=== PATIENT | female | born 1945 | race Caucasian/White ===

== ENCOUNTER → 2017-04-15 | Outpatient (CLI) | payer OTHER ==
[~2017-04-15] MED LIST: ASPEC81 PO; CALC600T9 PO; CHOL20007 PO; CRAN1CAP15 PO; DLR500 PO; FSM70 PO; OXGN; SPRIN INH; SYMIN INH; XPNINS125 INH; ZINC1TAB PO; [UNRECOGNIZED DRUG - CODE] PO
== END | disposition home or self-care (01) ==
LOC: C.LAB1850 14:48
PROVIDERS: ATTEND Internal Medicine Pulmonary Disease
DX: J44.1 Chronic obstructive pulmonary disease with (acute) exacerbation (principal)

== ENCOUNTER → 2017-05-28 | Outpatient (CLI) | payer OTHER ==
[~2017-05-28] MED LIST changes: +OPTIRAY 320 IV PRN
--- NOTE | 2017-05-28 13:23 | DIAGNOSTIC IMAGING REPORT ---
CT LUNG SCREENING, LOW DOSE WITH COMPUTER-AIDED DETECTION (CAD) CLINICAL HISTORY: Tobacco abuse. COMPARISON STUDY: Chest CT October 25, 2014. CT DOSE: 97.28 mGy.cm TECHNIQUE: Low-dose helical CT was acquired without intravenous contrast from lung apices to bases and reconstructed at 2.5 mm every 2 mm. CAD was utilized for this study. A dose lowering technique was utilized adhering to the principles of ALARA. FINDINGS: No enlarged axillary, mediastinal or hilar lymph nodes are present. The size of the heart is normal. There is no pericardial effusion. Mild dilatation of the ascending aorta, measuring 3.9 cm is noted. There is mild dilatation of the distal descending thoracic aorta which measures 3.5 cm. This is only minimally increased since exam of October 25, 2014. There is no consolidation to suggest pneumonia. Mucus at the level the jefferson is noted. There is multifocal mucus within lower lobe bronchi. No pneumothorax or pleural effusion is present. Severe emphysema is noted. A 3 mm nodule within the right lower lobe is noted on image 160 of 346. This is likely benign. Bony thorax and upper abdomen are unremarkable. IMPRESSION: 1. 3 mm right lower lobe pulmonary nodule which is likely benign. No suspicious pulmonary nodules. 2. Severe emphysema. 3. Small amount of mucus at the jefferson with multifocal secretions/mucous within lower lobe bronchi. Lung RADS: 2. Benign findings. Continued annual low-dose annual screening in 12 months. CAD FINDINGS: Overall Lung RADS Category: 2 Lung RADS Management Recommendation: Lung-RADS 2: Continue annual screening in 12 months. Lung RADS Follow Up Date: 2018-05-28 Lung RADS Nodule ID: 1 Nodule 1 Category: 2 Nodule 1 Status: Baseline Nodule 1 Description: Solid Nodule 1 Lesion ID: 1 Nodule 1 Slice Number: [id number] Nodule 1 Volume (mm3): 17 Nodule 1 Major [place] mm: 3.4 Nodule 1 Minor [place] mm: 2.1 Electronically signed by: Sandro Cook M.D. 05/28/2017 1:22 PM Dictated Date/Time: 05/28/2017 1:07 PM
== END | disposition home or self-care (01) ==
LOC: C.CTS 12:50
PROVIDERS: ATTEND Family Medicine
DX: Z87.891 Personal history of nicotine dependence (principal); R91.1 Solitary pulmonary nodule; J43.9 Emphysema, unspecified

== ENCOUNTER → 2017-12-15 | Outpatient (CLI) | payer OTHER ==
[~2017-12-15] MED LIST changes: -OPTIRAY 320 IV PRN
--- NOTE | 2017-12-15 16:14 | DIAGNOSTIC IMAGING REPORT ---
CHEST 2 VIEWS ROUTINE HISTORY: 72 years-old Female J44.9 COPD, [id number] follow-up study in a patient with COPD COMPARISON: Chest radiograph 01/30/2016, low-dose lung screening study 05/28/2017 TECHNIQUE: PA and lateral views of the chest FINDINGS: Cardiomediastinal and hilar silhouettes are within normal limits. Atherosclerosis of the aorta. Emphysema with hyperinflation and chronic interstitial coarsening redemonstrated. Mild biapical pleural-parenchymal scarring without pneumothorax, large pleural effusion, focal airspace consolidation or overt pulmonary edema. Bilateral nipple shadows are noted. Mild sigmoidal scoliosis of the thoracolumbar spine. IMPRESSION: Emphysema without acute process. The above report was generated using voice recognition software. It may contain grammatical, syntax or spelling errors. Electronically signed by: Miguel Palmer M.D. 12/15/2017 4:12 PM Dictated Date/Time: 12/15/2017 4:10 PM
== END | disposition home or self-care (01) ==
LOC: C.RAD1850 15:52
PROVIDERS: ATTEND Internal Medicine Pulmonary Disease
DX: J44.9 Chronic obstructive pulmonary disease, unspecified (principal); J43.9 Emphysema, unspecified

== ENCOUNTER 2019-09-09 11:51 | Inpatient (IN) ==
[2019-09-09] MEDS ORDERED: ALBUT/IPRATROP 3MG/0.5MG NEB 3 ML VIAL NEB STA (13:20)
[2019-09-09] MEDS ORDERED: SODIUM CHLORIDE 0.9% 1000ML 1,000 ML IV ONE (13:20)
[2019-09-09 13:31] LABS: Hematocrit (blood only) 38.9 % (37-47); Hemoglobin 11.2 g/dL (12.0-16.0); Mean Corpuscular Hemoglobin 29.4 pg (25-34); Mean Corpuscular Hgb Conc 28.8 g/dL (32-36); Mean Corpuscular Volume 102.1 fL (80-100); Mean Platelet Volume 11.3 fL (7.4-10.4); Platelet Count 188 K/uL (130-400); RDW Coefficient of Variation 13.6 % (11.5-14.5); RDW Standard Deviation 50.8 fL (36.4-46.3); Red Blood Count 3.81 M/uL (4.2-5.4); White Blood Count 11.42 K/uL (4.8-10.8)
[2019-09-09 13:46] LABS: Alanine Aminotransferase 28 U/L (12-78); Albumin Level 3.5 gm/dl (3.4-5.0); Alkaline Phosphatase 85 U/L (45-117); Aspartate Aminotransferase 16 U/L (15-37); BUN Creatinine Ratio 42.6 (10-20); Bilirubin,Total 0.6 mg/dl (0.2-1); Blood Urea Nitrogen 26 mg/dl (7-18); Calcium 8.9 mg/dl (8.5-10.1); Chloride 89 mmol/L (98-107); Est GFR (African American) 103.3; Est GFR (Non-African American) 89.2; Globulin 3.6 gm/dl (2.5-4.0); Glucose 199 mg/dl (70-99); Potassium 4.5 mmol/L (3.5-5.1); Sodium 138 mmol/L (136-145); Total Protein 7.1 gm/dl (6.4-8.2)
[2019-09-09 13:50] LABS: Basophils # (auto) 0.01 K/uL (0-0.2); Basophils % (auto) 0.1 %; Eosinophils # (auto) 0.01 K/uL (0-0.5); Eosinophils % (auto) 0.1 %; Immature Granulocytes # (auto) 0.02 K/uL (0.00-0.02); Immature Granulocytes % (auto) 0.2 %; Lymphocytes # (auto) 0.59 K/uL (1.2-3.4); Lymphocytes % (auto) 5.2 %; Monocytes # (auto) 0.63 K/uL (0.11-0.59); Monocytes % (auto) 5.5 %; Neutrophils # (auto) 10.16 K/uL (1.4-6.5); Neutrophils % (auto) 88.9 %
--- NOTE | 2019-09-09 13:51 | XRay Report ---
XR chest 1V portable CLINICAL HISTORY: weakness COMPARISON STUDY: Chest radiograph June 13, 2019. FINDINGS: Emphysema is noted. There is no pneumothorax or pleural effusion. Cardiac size is normal. M ediastinal contours are normal. There is no evidence for pulmonary edema. Possible minimal airspace o pacity is likely artifactual. IMPRESSION: 1. No acute findings. 2. Emphysema. 3. Possible minimal left basilar opacity. Favor artifact. Electronically signed by: Sandro Cook M.D. 09/09/2019 1:49 PM
[2019-09-09 13:56] LABS: Carbon Dioxide 54 mmol/L (21-32)
--- NOTE | 2019-09-09 14:45 | CT Scan Report ---
CT OF THE HEAD WITHOUT CONTRAST CLINICAL HISTORY: Weakness. COMPARISON STUDY: No previous studies for comparison. CT DOSE: 537.48 mGy.cm TECHNIQUE: Helical axial images of the head were obtained without IV contrast. Automated exposure con trol was utilized for the study. A dose lowering technique was utilized adhering to the principles o f ALARA. FINDINGS: No acute intracranial hemorrhage, midline shift or mass effect is present. The ventricular system is unremarkable. The basilar cisterns are patent. No extra-axial collections are present. Ther e are no findings to suggest acute dural sinus thrombosis or acute territorial infarct. No significan t calvarial abnormalities are present. Visualized portions of the sinuses and mastoid air cells are c lear. IMPRESSION: No acute intracranial findings. Electronically signed by: Sandro Cook M.D. 09/09/2019 2:44 PM
[2019-09-09 14:50] LABS: Base Excess ABG 16.5 mEq/L (-9-1.8); HCO3 ABG 46 mmol/L (19-24); Oxygen Saturation ABG 80.7 % (90-95); PCO2 ABG 101 mmHg (35-46); pH ABG 7.28 (7.35-7.45)
[2019-09-09 14:57] LABS: Allen Test Pos (Pos)
[2019-09-09 14:58] LABS: PO2 ABG 43 mm/Hg (80-95)
--- NOTE | 2019-09-09 15:06 | Emergency Department Note ---
Entered by Nissa Monson acting as a scribe for Mikel Yang DO History of Present Illness General Chief complaint: Shortness of Breath/Dyspnea Stated complaint: LOW OXYGEN - CANT BREATHE Time Seen by Provider: 09/09/19 12:51 Source: patient and family (daughter) History of Present Illness Onset (ago): hour(s) (this morning) Location: chest Pain Consistency: + other (episode) Maximum Pain Intensity: 0 Quality: + other (shortness of breath) Relieved By: not by other (increased O2) Associated symptoms: + other (disorientation, dizziness, chest pain, loss of balance) The patient is a 74 year old female that is presenting to the Emergency Room with complaints of an episode of shortness of breath that started this morning around 0830. The patient reports that she was feeling disoriented and unable to focus. Her daughter states that patient called her and asked her to come over as she was unable to sort out her medicine. Her daughter notes that the patient was feeling off balance and dizzy when she arrived. Her daughter reports that the patient was experiencing some chest pain. The patient states that her shortness of breath is her main complaint at this time. She notes that she has a history of COPD and wears 4L O2 at home at baseline. She states that she increased her O2 to 5L this morning without any significant relief in her symptoms. Her daughter reports that the patient lives with her but notes that she and her sister check on the patient often. Home Medications Home Medications Medication Instructions Recorded Confirmed Type Spiriva Respimat 2 puff INHALATION QAM 06/29/18 09/09/19 History Symbicort 2 puff INHALATION BID 06/29/18 09/09/19 History aspirin [Aspir-81] 81 mg PO QPM 06/29/18 09/09/19 History cranberry 8,400 mg PO QAM 06/29/18 09/09/19 History zinc 50 mg PO QAM 06/29/18 09/09/19 History alendronate 70 mg tablet 70 mg PO WK #12 tab 04/14/19 09/09/19 Rx Oxygen Home #1 ea 05/01/19 09/07/19 History hydrocortisone 2.5 % topical cream 1 appln TOPICAL BID PRN #1 gm 05/01/19 09/09/19 History levalbuterol HCl 0.63 mg/3 mL 0.63 mg INHALATION Q4H #15 ml 05/01/19 09/09/19 History solution for nebulization prednisone 5 mg tablet 5 mg PO QAM #30 tab 05/10/19 09/09/19 Rx citalopram 20 mg tablet 20 mg PO QAM #30 tab 05/19/19 09/09/19 Rx prednisone 10 mg tablet 10 mg PO .COMPLEX #30 tab 06/13/19 09/09/19 Rx metformin 500 mg tablet 500 mg PO BID #180 tab 06/20/19 09/09/19 Rx albuterol sulfate 90 mcg/actuation 2 puff INHALATION Q4H PRN #18 gm 08/03/19 09/09/19 Rx aerosol inhaler Allergies Allergy/AdvReac Type Severity Reaction Status Date / Time house dust mite Allergy Severe Verified 09/09/19 12:26 tree and shrub pollen Allergy Severe Verified 09/09/19 12:26 Sulfa (Sulfonamide Allergy Intermediate hives Verified 09/09/19 12:26 Antibiotics) Past Med/Surg History Medical History Anxiety Bunion of great toe of right foot Cardiac murmur 2014 [facility]-CARDIAC CATH NO STENTS Chronic obstructive pulmonary disease Current use of steroid medication F/U DR WALLACE On home oxygen therapy 3/L/MIN [place] Osteoarthritis SOB (shortness of breath) Urinary tract infection HX Surgical History History of cardiac cath 2014-NO STENTS NEEDED [facility] History of carpal tunnel release RIGHT History of colonoscopy History of hysterectomy OVARIES REMAIN History of tonsillectomy Family History Grandmother (Paternal) Myocardial infarction Social History Preferred Language: Uzbek Communication Ability: Effective Visual Impairment: Limited Hearing Ability: Normal Patient Financial Representative Required: No Beliefs That Will Affect Care: None marital status: Current Living Situation: Spouse and Family current occupational status: retired Feels Safe at Home: Yes Smoking Status: Current every day smoker Tobacco Type: cigarettes ; Second Hand Exposure: No ; Hx Alcohol Use: No Hx Substance Use: No Childhood Exposure to Second-Hand Smoke: Yes caffeine: No during the past year weight has: decreased > 10 lbs Dental Care, Regularly: No Physical Activity Frequency: Does not Exercise Seatbelt Use: always Sunscreen Use: No Review of Systems See HPI for pertinent positives & negatives. and A total of 10 systems reviewed and were otherwise negative Physical Exam Vital Signs Vital Signs - 24 hr 09/09/19 12:07 09/09/19 12:47 09/09/19 12:50 Temperature 36.5 C Temperature Source Oral Pulse Rate 69 Pulse Rate [Apical] 72 Pulse Rate from SpO2 Sensor Pulse Rhythm Regular Pulse Strength Normal Respiratory Rate 16 22 Respiratory Effort / Characteristics Non-Labored Non-Labored Non-Labored Respiratory Depth Normal Normal Respiratory Pattern Regular Blood Pressure 113/67 Blood Pressure [Right Arm] 127/68 Blood Pressure Mean 82 Blood Pressure Mean [Right Arm] 87 Blood Pressure Position Sitting Blood Pressure Position [Right Arm] Sitting Pulse Oximetry 99 100 Oxygen Delivery Method Nasal Cannula Nasal Cannula Nasal Cannula Oxygen Flow Rate 5 4 4 Fraction of Inspired Oxygen 6 SaO2/FiO2 Ratio 1650 Sepsis Recent Fever Within 48 Hours No Sepsis Action Taken by Nursing No Action Required 09/09/19 12:51 09/09/19 12:53 09/09/19 12:55 Temperature Temperature Source Pulse Rate 74 Pulse Rate [Apical] Pulse Rate from SpO2 Sensor 72 Pulse Rhythm Pulse Strength Respiratory Rate 23 Respiratory Effort / Characteristics Respiratory Depth Respiratory Pattern Blood Pressure 127/68 Blood Pressure [Right Arm] Blood Pressure Mean 93 Blood Pressure Mean [Right Arm] Blood Pressure Position Blood Pressure Position [Right Arm] Pulse Oximetry 100 100 100 Oxygen Delivery Method Nasal Cannula Nasal Cannula Oxygen Flow Rate 4 4 Fraction of Inspired Oxygen SaO2/FiO2 Ratio Sepsis Recent Fever Within 48 Hours Sepsis Action Taken by Nursing 09/09/19 13:30 09/09/19 13:44 09/09/19 13:49 Temperature Temperature Source Pulse Rate 76 Pulse Rate [Apical] 72 Pulse Rate from SpO2 Sensor 75 77 Pulse Rhythm Pulse Strength Respiratory Rate 18 16 Respiratory Effort / Characteristics Non-Labored Spontaneous Respiratory Depth Respiratory Pattern Blood Pressure 120/62 141/64 H Blood Pressure [Right Arm] Blood Pressure Mean 81 98 Blood Pressure Mean [Right Arm] Blood Pressure Position Blood Pressure Position [Right Arm] Pulse Oximetry 99 99 100 Oxygen Delivery Method Nasal Cannula Oxygen Flow Rate 4 Fraction of Inspired Oxygen SaO2/FiO2 Ratio Sepsis Recent Fever Within 48 Hours Sepsis Action Taken by Nursing 09/09/19 14:00 09/09/19 14:30 09/09/19 15:00 Temperature Temperature Source Pulse Rate 73 79 88 Pulse Rate [Apical] Pulse Rate from SpO2 Sensor 74 74 Pulse Rhythm Pulse Strength Respiratory Rate 25 H 17 23 Respiratory Effort / Characteristics Respiratory Depth Respiratory Pattern Blood Pressure 127/68 140/73 113/67 Blood Pressure [Right Arm] Blood Pressure Mean 91 111 82 Blood Pressure Mean [Right Arm] Blood Pressure Position Blood Pressure Position [Right Arm] Pulse Oximetry 98 98 Oxygen Delivery Method Oxygen Flow Rate Fraction of Inspired Oxygen SaO2/FiO2 Ratio Sepsis Recent Fever Within 48 Hours Sepsis Action Taken by Nursing CONSTITUTIONAL/VITAL SIGNS: Reviewed / noted above. GENERAL: Drowsy. Non-toxic in appearance. INTEGUMENTARY: Warm, dry, and [place]. HEAD: Normocephalic. EYES: without scleral icterus or trauma. ENT/OROPHARYNX: clear. DMM. LYMPHADENOPATHY/NECK: Is supple without lymphadenopathy or meningismus. RESPIRATORY: Expiratory wheezing. CARDIOVASCULAR: Regular rate and rhythm. GI/ABDOMEN: Soft and nontender. No organomegaly or pulsatile mass. No rebound or guarding. Normal bowel sounds. EXTREMITIES: Warm and well perfused. BACK: No CVA tenderness. NEUROLOGICAL: Intact without focal deficits. PSYCHIATRIC: normal affect. MUSCULOSKELETAL: Normally developed with good muscle tone. Course Course 1315:The patient was evaluated in room A02. A complete history and physical examination was performed. 1337: The patients family informed the patients nurse that she has been having issues with nausea, vomiting, and diarrhea lately. Her family reports that the patient is being worked up for possible colon cancer. Administered Medications Discontinued Medications Albuterol (Duoneb) 3 ml NEB NOW STA Stop: 09/09/19 13:21 Last Admin: 09/09/19 13:47 Dose: 3 ml Documented by: [id number] Sodium Chloride (Nss 1000ml) 1,000 mls @ 999 mls/hr IV .Q1H1M ONE Stop: 09/09/19 14:20 Last Infusion: 09/09/19 14:40 Dose: 0 mls/hr Documented by: [id number] Admin: 09/09/19 13:45 Dose: 999 mls/hr Documented by: [id number] Medical Decision Making Differential Diagnosis Differential diagnoses includes but is not limited to pneumonia, bronchitis, COPD/Asthma exacerbation, pneumothorax, pulmonary embolism, congestive heart failure, acute coronary syndrome Medical Records Attestation: I reviewed the patient's medical records. Home Medications Current Medication List: was personally reviewed by me Laboratory Data Attestation: I reviewed the patient's lab results. Result diagrams: 09/09/19 13:00 09/09/19 13:00 Lab Results 09/09/19 09/09/19 09/09/19 Range/Units 13:00 13:00 14:38 WBC 11.42 H (4.8-10.8) K/uL RBC 3.81 L (4.2-5.4) M/uL Hgb 11.2 L (12.0-16.0) g/dL Hct 38.9 (37-47) % MCV 102.1 H (80-100) fL MCH 29.4 (25-34) pg MCHC 28.8 L (32-36) g/dL RDW Std Deviation 50.8 H (36.4-46.3) fL RDW Coeff of [place] 13.6 (11.5-14.5) % Plt Count 188 (130-400) K/uL MPV 11.3 H (7.4-10.4) fL Immature Gran % (Auto) 0.2 % Neut % (Auto) 88.9 % Lymph % (Auto) 5.2 % [place] % (Auto) 5.5 % Eos % (Auto) 0.1 % Baso % (Auto) 0.1 % Immature Gran # (Auto) 0.02 (0.00-0.02) K/uL Neut # (Auto) 10.16 H (1.4-6.5) K/uL Lymph # (Auto) 0.59 L (1.2-3.4) K/uL [place] # (Auto) 0.63 H (0.11-0.59) K/uL Eos # (Auto) 0.01 (0-0.5) K/uL Baso # (Auto) 0.01 (0-0.2) K/uL ABG pH 7.28 L (7.35-7.45) ABG pCO2 101 H (35-46) mmHg ABG pO2 43 L (80-95) mm/Hg ABG HCO3 46 H (19-24) mmol/L ABG O2 Saturation 80.7 L (90-95) % ABG Base Excess 16.5 H (-9-1.8) mEq/L Lonnie Test Pos (Pos) Barometric Pressure 714.1 mm/Hg Oxygen Given ROOM AIR Sodium 138 (136-145) mmol/L Potassium 4.5 (3.5-5.1) mmol/L Chloride 89 L (98-107) mmol/L Carbon Dioxide 54 H* (21-32) mmol/L Anion Gap -5.0 L (3-11) BUN 26 H (7-18) mg/dl Creatinine 0.60 (0.6-1.2) mg/dl Est Cr Clr Drug Dosing Not Reportable Est GFR ( Amer) 103.3 Est GFR (Non-Af Amer) 89.2 BUN/Creatinine Ratio 42.6 H (10-20) Glucose 199 H (70-99) mg/dl Calcium 8.9 (8.5-10.1) mg/dl Total Bilirubin 0.6 (0.2-1) mg/dl AST 16 (15-37) U/L ALT 28 (12-78) U/L Alkaline Phosphatase 85 (45-117) U/L Total Protein 7.1 (6.4-8.2) gm/dl Albumin 3.5 (3.4-5.0) gm/dl Globulin 3.6 (2.5-4.0) gm/dl Albumin/Globulin Ratio 1.0 (0.9-2) TSH 0.580 (0.300-4.500) uIu/ml Imaging Data Radiologist's Impression: Radiology results as stated below per my review and the radiologist's interpretation: XR chest 1V portable CLINICAL HISTORY: weakness COMPARISON STUDY: Chest radiograph June 13, 2019. FINDINGS: Emphysema is noted. There is no pneumothorax or pleural effusion. Cardiac size is normal. Mediastinal contours are normal. There is no evidence for pulmonary edema. Possible minimal airspace opacity is likely artifactual. IMPRESSION: 1. No acute findings. 2. Emphysema. 3. Possible minimal left basilar opacity. Favor artifact. Electronically signed by: Sandro Coko M.D. 09/09/2019 1:[address] OF THE HEAD WITHOUT CONTRAST CLINICAL HISTORY: Weakness. COMPARISON STUDY: No previous studies for comparison. CT DOSE: 537.48 mGy.cm TECHNIQUE: Helical axial images of the head were obtained without IV contrast. Automated exposure control was utilized for the study. A dose lowering technique was utilized adhering to the principles of ALARA. FINDINGS: No acute intracranial hemorrhage, midline shift or mass effect is present. The ventricular system is unremarkable. The basilar cisterns are patent. No extra-axial collections are present. There are no findings to suggest acute dural sinus thrombosis or acute territorial infarct. No significant eugenio rial abnormalities are present. Visualized portions of the sinuses and mastoid air cells are clear. IMPRESSION: No acute intracranial findings. Electronically signed by: Sandro Cook M.D. 09/09/2019 2:44 PM ECG Data Attestation: I personally reviewed and interpreted this ECG as follows: Indication: + SOB/dyspnea Rate (beats per minute): 70 Rhythm: + sinus rhythm ECG ST segments: no ST elevation ECG Findings: no PACs and no PVCs Blood Pressure Blood Pressure Findings: Elevated blood pressure Blood Pressure Disposition: did not require urgent referral MDM Narrative This is a 74-year-old female who presents to the ED with a chief complaint of feeling a little disoriented this morning around 830. She also reports that she was little more short of breath than usual. She felt dizzy and lightheaded and her balance seemed to be off. She was last known well around 2100. She does use home oxygen for COPD. Her son states that they increased her oxygen this morning because she was feeling short of breath. This may have caused her to become hypercarbic with some respiratory depression. Her physical exam reveals normal vital signs here. She is not hypoxic on her typical 4 L of oxygen. She had some mild expiratory wheezing on my exam. She was given a DuoNeb treatment for this. She also appeared to be clinically dehydrated. She was given a liter of normal saline for this. The patient CBC was unremarkable. A chest x-ray reveals COPD. The patient's bicarb level was 54. This is likely related to her chronic COPD. Complete metabolic panel was unremarkable. BUN is 26. CT scan of the brain did not show acute process. EKG shows a sinus rhythm at a rate of 70. The patient had an ABG. This was difficult to get. It appears to be a venous sample. The patient's PaCO2 was 101. This is likely chronically elevated although it is unlikely that it is this elevated. She also has a PaO2 of 40. The patient on her 4 L is saturating 98%. The patient is quite weak. She has difficulty sitting up in bed. Overall, the patient does not appear to be safe for discharge back home. She appears too weak. She would benefit from further inpatient evaluation and also physical therapy. I spoke with the hospitalist, who will see the patient for further evaluation and care. Impression & Plan COPD exacerbation, Weakness, Acute dehydration Discharge Plan Visit Data Chief Complaint: Shortness of Breath/Dyspnea Stated Complaint: LOW OXYGEN - CANT BREATHE ED Provider: Mikel Yang Discharge Problem: COPD exacerbation, Weakness, Acute dehydration Patient Disposition: Being Evaluated by Hospitalist Condition: Good Forms Stand Alone Forms: My [facility], Important Visit Information Prescriptions Prescriptions: No Action alendronate 70 mg tablet 70 mg PO WK Qty: 12 RF: 1 prednisone 5 mg tablet 5 mg PO QAM Qty: 30 RF: 5 citalopram 20 mg tablet 20 mg PO QAM Qty: 30 RF: 5 metformin 500 mg tablet 500 mg PO BID Qty: 180 RF: 1 albuterol sulfate [Ventolin HFA] 90 mcg/actuation HFA aerosol inhaler 2 puff INHALATION Q4H PRN (Reason: Wheezing) Qty: 18 RF: 5 prednisone 10 mg tablet 10 mg PO .COMPLEX Qty: 30 RF: 0 hydrocortisone 2.5 % cream 1 appln topical BID PRN (Reason: Itching) Qty: 1 RF: 0 levalbuterol HCl 0.63 mg/3 mL solution for nebulization 0.63 mg inhalation Q4H Qty: 15 RF: 0 (DME) Oxygen Home Liters Per Minute See Dose Instructions .ROUTE .MEDSUPPLY Qty: 1 RF: 0 aspirin [Aspir-81] 81 mg Tablet,Delayed Release (Dr/Ec) 81 mg PO QPM RF: 0 zinc 50 mg Tablet 50 mg PO QAM RF: 0 cranberry 500 mg Capsule 8,400 mg PO QAM RF: 0 Symbicort 160-4.5 mcg/actuation Hfa Aerosol Inhaler 2 puff INHALATION BID RF: 0 Spiriva Respimat 2.5 mcg/actuation Mist 2 puff INHALATION QAM RF: 0 Referrals Referrals: Mary Hester DO [Primary Care Provider] - The scribe's documentation has been prepared under my direction and personally reviewed by me in its entirety. I confirm that the note above accurately reflects all work, treatment, procedures, and medical decision making performed by me.
[2019-09-09] MEDS ORDERED: cefTRIAXone SODIUM 1,000 MG in DEXTROSE 5% 50 ML IV SCH (17:00)
[2019-09-09] MEDS ORDERED: AZITHROMYCIN 500 MG in DEXTROSE 5% 250 ML IV SCH (17:00)
[2019-09-09] MEDS ORDERED: cefTRIAXone SODIUM 1000MG/50ML D5W IV ONE (17:05)
--- NOTE | 2019-09-09 17:07 | History & Physical Report ---
Date of Service September 09, 2019 Assessment & Plan (1) Acute and chronic respiratory failure with hypercapnia: Admit PCU Will order CT chest to further delineate possibility of L lower pneumonia on CXR. Perhaps the increase in supplemental oxygen decreased drive and she then became more hypercapnic. I will keep oxygen at 4L and monitor oxygen levels. Repeat ABG in the am DVT prophylaxis = SCDs and Lovenox. (2) COPD exacerbation: IV Solumedrol ordered IV Rocephin and IV Azithromycin to cover the common offenders Consult pulmonology Continue Spiriva and Symbicort PRN Duonebs Patient uses daily prednisone (3) Coronary artery disease: Patient had brief episode of non-specific chest pain. Will trend trops continue aspirin (4) Type II diabetes mellitus: Hold Metformin Insulin sliding scale coverage Anticipate sugars elevating due to IV steroid use. History of Present Illness 74 y/o female presented to the ED with increased SOB and mild confusion in that she was not able to sort her her usual morning medications. Upon daughter arriving to patients house, the patient was noted to be off balance. The patient normally uses 4L nc but had been increased to 4.5L yesterday then increased to 5L today. The patient told daughter that she had chest pain, but this resolved before coming into the ED. She reports SOB is her main concern. She lives with her who himself is in poor health. Primary Care Provider: Mary Hester DO Allergies Allergy/AdvReac Type Severity Reaction Status Date / Time house dust mite Allergy Severe Verified 09/09/19 12:26 tree and shrub pollen Allergy Severe Verified 09/09/19 12:26 Sulfa (Sulfonamide Allergy Intermediate hives Verified 09/09/19 12:26 Antibiotics) Home Medications Home Medications Medication Instructions Recorded Confirmed Type Spiriva Respimat 2 puff INHALATION QAM 06/29/18 09/09/19 History Symbicort 2 puff INHALATION BID 06/29/18 09/09/19 History aspirin [Aspir-81] 81 mg PO QPM 06/29/18 09/09/19 History cranberry 8,400 mg PO QAM 06/29/18 09/09/19 History zinc 50 mg PO QAM 06/29/18 09/09/19 History alendronate 70 mg tablet 70 mg PO WK #12 tab 04/14/19 09/09/19 Rx Oxygen Home #1 ea 05/01/19 09/07/19 History hydrocortisone 2.5 % topical cream 1 appln TOPICAL BID PRN #1 gm 05/01/19 09/09/19 History levalbuterol HCl 0.63 mg/3 mL 0.63 mg INHALATION Q4H #15 ml 05/01/19 09/09/19 History solution for nebulization prednisone 5 mg tablet 5 mg PO QAM #30 tab 05/10/19 09/09/19 Rx citalopram 20 mg tablet 20 mg PO QAM #30 tab 05/19/19 09/09/19 Rx prednisone 10 mg tablet 10 mg PO .COMPLEX #30 tab 06/13/19 09/09/19 Rx metformin 500 mg tablet 500 mg PO BID #180 tab 06/20/19 09/09/19 Rx albuterol sulfate 90 mcg/actuation 2 puff INHALATION Q4H PRN #18 gm 08/03/19 09/09/19 Rx aerosol inhaler Past Med/Surg History Medical History Anxiety Bunion of great toe of right foot Cardiac murmur 2014 [facility]-CARDIAC CATH NO STENTS Chronic obstructive pulmonary disease Current use of steroid medication F/U DR WALLACE On home oxygen therapy 3/L/MIN [place] Osteoarthritis SOB (shortness of breath) Urinary tract infection HX Surgical History History of cardiac cath 2014-NO STENTS NEEDED [facility] History of carpal tunnel release RIGHT History of colonoscopy History of hysterectomy OVARIES REMAIN History of tonsillectomy Family History Grandmother (Paternal) Myocardial infarction Social History Preferred Language: Telugu Communication Ability: Effective Visual Impairment: Limited Hearing Ability: Normal 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 Beliefs That Will Affect Care: None marital status: Current Living Situation: Spouse and Family current occupational status: retired Feels Safe at Home: Yes Smoking Status: Current every day smoker Tobacco Type: cigarettes ; Second Hand Exposure: No ; Hx Alcohol Use: No Hx Substance Use: No Childhood Exposure to Second-Hand Smoke: Yes caffeine: No during the past year weight has: decreased > 10 lbs Dental Care, Regularly: No Physical Activity Frequency: Does not Exercise Seatbelt Use: always Sunscreen Use: No Review of Systems Review of Systems: Constitutional- no fever; + has had a slow persistent weight loss per family. Eyes- no acute visual changes ENT- no sinus drainage; no pharyngitis Pulmonary- As in HPI. Cardiac- no palpitations, no orthopnea, no dependent edema GI- no nausea, no vomiting, + diarrhea and decreased appetite per family. Musculoskeletal- no arthralgias, no myalgias Derm- no rashes, no new skin lesions. Hematologic- no unusual bruising, no unusual bleeding Lymphatics- no adenopathy Endocrine- no polyuria or polydipsia; no heat or cold intolerance Neuro- no headaches, no focal neurologic symptoms Psych- no anxiety, no depression Physical Exam Physical Exam: General- adult female, NAD, She is alert and oriented x3 at this time. Head- atraumatic Eyes- PERRL, EOMI, anicteric ENT- oropharynx clear Neck- supple, no JVD, no adenopathy, no thyromegaly. Lungs- Decreased breath sounds b/l bases, + exp wheezes b/l. No crackles or rhonchi appreciated. Heart- regular rhythm; II/ OLMAN, no gallop, no rub appreciated Abdomen- normal bowel sounds, soft, nontender. Extremities- no pretibial edema, no calf tenderness; peripheral pulses intact Neuro- alert, oriented x 3; PERRL, EOMI; No dysarthria, cvicu nurse II-XII grossly intact, Non-focal. Skin- warm & dry Results & Data Vital Signs (Past 12 Hours) Vital Signs Temp Pulse Pulse Resp BP BP Pulse Ox 09/09/19 15:00 88 23 113/67 09/09/19 14:30 79 17 140/73 98 09/09/19 14:00 73 25 H 127/68 98 09/09/19 13:49 72 16 100 09/09/19 13:44 76 18 141/64 H 99 09/09/19 13:30 120/62 99 09/09/19 12:55 100 09/09/19 12:53 100 09/09/19 12:51 74 23 127/68 100 09/09/19 12:50 72 22 127/68 100 09/09/19 12:07 36.5 C 69 16 113/67 99 Laboratory Results Laboratory Results WBC 11.42 K/uL (4.8-10.8) H 09/09/19 13:00 RBC 3.81 M/uL (4.2-5.4) L 09/09/19 13:00 Hgb 11.2 g/dL (12.0-16.0) L 09/09/19 13:00 Hct 38.9 % (37-47) 09/09/19 13:00 MCV 102.1 fL (80-100) H 09/09/19 13:00 MCH 29.4 pg (25-34) 09/09/19 13:00 MCHC 28.8 g/dL (32-36) L 09/09/19 13:00 RDW Std Deviation 50.8 fL (36.4-46.3) H 09/09/19 13:00 RDW Coeff of Jamison 13.6 % (11.5-14.5) 09/09/19 13:00 Plt Count 188 K/uL (130-400) 09/09/19 13:00 MPV 11.3 fL (7.4-10.4) H 09/09/19 13:00 Immature Gran % (Auto) 0.2 % 09/09/19 13:00 Neut % (Auto) 88.9 % 09/09/19 13:00 Lymph % (Auto) 5.2 % 09/09/19 13:00 Garrett % (Auto) 5.5 % 09/09/19 13:00 Eos % (Auto) 0.1 % 09/09/19 13:00 Baso % (Auto) 0.1 % 09/09/19 13:00 Immature Gran # (Auto) 0.02 K/uL (0.00-0.02) 09/09/19 13:00 Neut # (Auto) 10.16 K/uL (1.4-6.5) H 09/09/19 13:00 Lymph # (Auto) 0.59 K/uL (1.2-3.4) L 09/09/19 13:00 Garrett # (Auto) 0.63 K/uL (0.11-0.59) H 09/09/19 13:00 Eos # (Auto) 0.01 K/uL (0-0.5) 09/09/19 13:00 Baso # (Auto) 0.01 K/uL (0-0.2) 09/09/19 13:00 ABG pH 7.28 (7.35-7.45) L 09/09/19 14:38 ABG pCO2 101 mmHg (35-46) H 09/09/19 14:38 ABG pO2 43 mm/Hg (80-95) L 09/09/19 14:38 ABG HCO3 46 mmol/L (19-24) H 09/09/19 14:38 ABG O2 Saturation 80.7 % (90-95) L 09/09/19 14:38 ABG Base Excess 16.5 mEq/L (-9-1.8) H 09/09/19 14:38 Lonnie Test Pos (Pos) 09/09/19 14:38 Barometric Pressure 714.1 mm/Hg 09/09/19 14:38 Oxygen Given ROOM AIR 09/09/19 14:38 Sodium 138 mmol/L (136-145) 09/09/19 13:00 Potassium 4.5 mmol/L (3.5-5.1) 09/09/19 13:00 Chloride 89 mmol/L (98-107) L 09/09/19 13:00 Carbon Dioxide 54 mmol/L (21-32) H* 09/09/19 13:00 Anion Gap -5.0 (3-11) L 09/09/19 13:00 BUN 26 mg/dl (7-18) H 09/09/19 13:00 Creatinine 0.60 mg/dl (0.6-1.2) 09/09/19 13:00 Est Cr Clr Drug Dosing Not Reportable 09/09/19 13:00 Est GFR ( Amer) 103.3 09/09/19 13:00 Est GFR (Non-Af Amer) 89.2 09/09/19 13:00 BUN/Creatinine Ratio 42.6 (10-20) H 09/09/19 13:00 Glucose 199 mg/dl (70-99) H 09/09/19 13:00 Calcium 8.9 mg/dl (8.5-10.1) 09/09/19 13:00 Total Bilirubin 0.6 mg/dl (0.2-1) 09/09/19 13:00 AST 16 U/L (15-37) 09/09/19 13:00 ALT 28 U/L (12-78) 09/09/19 13:00 Alkaline Phosphatase 85 U/L (45-117) 09/09/19 13:00 Total Protein 7.1 gm/dl (6.4-8.2) 09/09/19 13:00 Albumin 3.5 gm/dl (3.4-5.0) 09/09/19 13:00 Globulin 3.6 gm/dl (2.5-4.0) 09/09/19 13:00 Albumin/Globulin Ratio 1.0 (0.9-2) 09/09/19 13:00 TSH 0.580 uIu/ml (0.300-4.500) 09/09/19 13:00 Diagnostic Findings [place], [place] [phone] XRay Report Patient: LISE GARCIA AAdmit Date: 09/09/19 MR#: [id number]: [id number] Acct ID:[id number]: Date: [address] [place] [address] Zip: [place] [address] Age: 74Location: ED Sex: F Room/Bed: Att Phy:Diagnosis: LOW OXYGEN - CANT BREATHE Bev Phy: Mary Hester, DOService Date: 09/09/19 Fam Phy: Mary Hester, DOInterpreting Phy: Sandro Cook MD Admit Phy: Ordering Phy: Mikel Yang D.O. cc: ~ XR chest 1V portable CLINICAL HISTORY: weakness COMPARISON STUDY: Chest radiograph June 13, 2019. FINDINGS: Emphysema is noted. There is no pneumothorax or pleural effusion. Cardiac size is normal. Mediastinal contours are normal. There is no evidence for pulmonary edema. Possible minimal airspace opacity is likely artifactual. IMPRESSION: 1. No acute findings. 2. Emphysema. 3. Possible minimal left basilar opacity. Favor artifact. Electronically signed by: Sandro Cook M.D. 09/09/2019 1:49 PM Dictated: 09/09/19 1348 Transcribed: 09/09/19 1348 [place], [place] [phone] CT Scan Report Patient: LISE GARCIA AAdmit Date: 09/09/19 MR#: [id number]: [id number] Acct ID:[id number]: [facility] Zip: [facility] [place] [address] Age: 74Location: ED Sex: F Room/Bed: Att Phy:Diagnosis: LOW OXYGEN - CANT BREATHE Bev Phy: Mary Hester, DOService Date: 09/09/19 Fam Phy: Mary Hester, DOInterpreting Phy: Sandro Cook MD Admit Phy: Ordering Phy: Mikel Yang D.O. cc: ~ CT OF THE HEAD WITHOUT CONTRAST CLINICAL HISTORY: Weakness. COMPARISON STUDY: No previous studies for comparison. CT DOSE: 537.48 mGy.cm TECHNIQUE: Helical axial images of the head were obtained without IV contrast. Automated exposure control was utilized for the study. A dose lowering technique was utilized adhering to the principles of ALARA. FINDINGS: No acute intracranial hemorrhage, midline shift or mass effect is present. The ventricular system is unremarkable. The basilar cisterns are patent. No extra-axial collections are present. There are no findings to suggest acute dural sinus thrombosis or acute territorial infarct. No significant calvarial abnormalities are present. Visualized portions of the sinuses and mastoid air cells are clear. IMPRESSION: No acute intracranial findings. Electronically signed by: Sandro Cook M.D. 09/09/2019 2:44 PM Dictated: 09/09/19 1442 Transcribed: 09/09/19 1442 Code Status & VTE Plan VTE Prophylaxis Plan VTE Prophylaxis will be ordered: Yes PG Care Time/CCT Total # of Minutes Spent Total Time Spent: 65 Total Time Spent with Patient: Total time spent is greater than 50% in coordination of care (as documented) at patient's floor/unit and/or counseling patient:
[2019-09-09] MEDS: methylPREDNISolone 40 MG in SYRINGE 0 ML IV SCH (17:10)
[2019-09-09] MEDS ORDERED: CARBOHYDRATES FOR HYPOGLYCEMIA PO PRN (18:00)
[2019-09-09] MEDS ORDERED: ACETAMINOPHEN 325 MG TAB PO PRN (18:00)
[2019-09-09] MEDS ORDERED: GLUCOSE 40% GEL 15 GM TUBE PO PRN (18:00)
[2019-09-09] MEDS ORDERED: ONDANSETRON INJ 2 MG/ML 2 ML VIAL IV PRN (18:00)
[2019-09-09] MEDS ORDERED: GLUCOSE 10 TABS/TUBE PO PRN (18:00)
[2019-09-09] MEDS ORDERED: GLUCAGON FOR INJ 1 MG VIAL SQ PRN (18:00)
[2019-09-09] MEDS ORDERED: DEXTROSE 50% 50 ML SYRINGE IV PRN (18:00)
--- NOTE | 2019-09-09 20:05 | CT Scan Report ---
CT OF THE CHEST WITHOUT IV CONTRAST CLINICAL HISTORY: SOB, COPD, ?pneumonia COMPARISON STUDY: Chest CT May 28, 2017. Chest radiograph June 13, [address] DOSE: 201.19 mGy.cm TECHNIQUE: Axial images of the chest were obtained without IV contrast. Images were reviewed in the axial, sagittal, and coronal planes. IV contrast was not administered for this examination. Automat ed exposure control was utilized for the study. A dose lowering technique was utilized adhering to t he principles of ALARA. FINDINGS: No enlarged axillary, mediastinal or hilar lymph nodes are present. The size of the heart is at the upper limits of normal. There is moderate coronary artery calcification. Central pulmonary arteries are mildly dilated. There is extensive atherosclerotic plaque of the thoracic aorta. Central airways are patent. Severe emphysema is noted. A 1.4 x 1.2 cm lobulated right middle lobe nodule on image 191 of 321 has spiculated margins. This is new since CT of May 28, 2017. No additional dixie picious pulmonary nodules are present. There is no consolidation to suggest pneumonia. There is no pn eumothorax or pleural effusion. No suspicious osseous lesions within the bony thorax are noted. Upper abdomen is unremarkable on this unenhanced exam. IMPRESSION: 1. 1.4 x 1.2 cm solid right middle lobe nodule with spiculated margins, new since CT of May 28, 2017. This is highly suggestive of bronchogenic carcinoma. Pulmonary consultation is recommended. 2. Severe emphysema. 3. No acute intrathoracic findings. 4. Moderate dilatation of the central pulmonary arteries raises the possibility of pulmonary arterial hypertension. Electronically signed by: Sandro Cook M.D. 09/09/2019 8:03 PM
[2019-09-09] MEDS: ENOXAPARIN INJ 40 MG/0.4 ML SYR SQ SCH (20:55)
[2019-09-09] MEDS: ASPIRIN 81 MG ECTAB PO SCH (20:55)
[2019-09-09] MEDS: INSULIN ASPART 100 UNITS/ML 3 ML PEN SC SCH (20:57)
[2019-09-09] MEDS: FAMOTIDINE 20 MG TAB PO SCH (20:58)
[2019-09-09] MEDS: BUDESONIDE/FORMOTEROL FUMARATE 160/4.5 60 PUFFS/INHALER INH SCH (20:59)
[2019-09-10] MEDS: methylPREDNISolone 40 MG in SYRINGE 0 ML IV SCH ×3 (00:10→11:08)
[2019-09-10] MEDS ORDERED: LORazepam 0.5 MG TAB PO STA ×2 (01:09→01:12)
[2019-09-10] MEDS: ALBUT/IPRATROP 3MG/0.5MG NEB 3 ML VIAL NEB PRN ×2 (01:15→08:23)
[2019-09-10] MEDS ORDERED: INFLUENZA Vaccine HIGH DOSE 65+yrs 0.5 mL Syr IM ONE (04:00)
[2019-09-10 05:41] LABS: Base Excess ABG 3.7 mEq/L (-9-1.8); HCO3 ABG 30 mmol/L (19-24); Oxygen Saturation ABG 93.1 % (90-95); PCO2 ABG 59 mmHg (35-46); PO2 ABG 68 mm/Hg (80-95); pH ABG 7.33 (7.35-7.45)
[2019-09-10 05:43] LABS: Hematocrit (blood only) 31.8 % (37-47); Hemoglobin 9.5 g/dL (12.0-16.0); Mean Corpuscular Hemoglobin 29.3 pg (25-34); Mean Corpuscular Hgb Conc 29.9 g/dL (32-36); Mean Corpuscular Volume 98.1 fL (80-100); Mean Platelet Volume 10.9 fL (7.4-10.4); Platelet Count 145 K/uL (130-400); RDW Coefficient of Variation 13.6 % (11.5-14.5); RDW Standard Deviation 48.6 fL (36.4-46.3); Red Blood Count 3.24 M/uL (4.2-5.4); White Blood Count 6.76 K/uL (4.8-10.8)
[2019-09-10 06:29] LABS: BUN Creatinine Ratio 46.2 (10-20); Calcium 8.3 mg/dl (8.5-10.1); Creatinine Clr Calc Pharmacy 82.4 ml/min; Est GFR (African American) 117.1; Est GFR (Non-African American) 101.1; Potassium 4.7 mmol/L (3.5-5.1)
[2019-09-10 06:31] LABS: Allen Test Pos (Pos)
[2019-09-10 08:00] LABS: Appearance Urine Clear (Clear); Bilirubin Urine Negative (Negative); Blood Urine Negative (Negative); Color Urine Yellow; Glucose Urine UA Negative (Negative); Ketones Urine 2+ (Negative); Leukocyte Esterase Urine Negative (Negative); Nitrite Urine Negative (Negative); Protein Urine Negative (Negative); Urobilinogen Urine Negative (Negative)
[2019-09-10] MEDS: BUDESONIDE/FORMOTEROL FUMARATE 160/4.5 60 PUFFS/INHALER INH SCH ×2 (08:13→21:24)
[2019-09-10] MEDS: TIOTROPIUM BROMIDE 5 PUFF/90 MCG INH INH SCH (08:13)
[2019-09-10] MEDS: CITALOPRAM 20 MG TAB PO SCH (08:13)
[2019-09-10] MEDS: FAMOTIDINE 20 MG TAB PO SCH ×2 (08:15→21:25)
[2019-09-10] MEDS: INSULIN ASPART 100 UNITS/ML 3 ML PEN SC SCH ×4 (08:31→21:08)
--- NOTE | 2019-09-10 10:50 | Pulmonary Consultation ---
Date of Consultation September 10, 2019 Assessment & Plan (1) Acute exacerbation of chronic obstructive pulmonary disease (COPD): I will discontinue the patient's antibiotics as she is not infected. I will switch her Solu-Medrol to 40 mg prednisone daily. This can be titrated down to her home dose of prednisone for approximately 5 days. The patient has very severe disease at baseline and is quite compromised. She is chronically on oxygen at 4 L and takes care of her very ill at home. She also has a new right middle lobe nodule that is highly suspicious of malignancy. There thus not appear to be an significant mediastinal or hilar adenopathy. This would be extremely difficult to biopsy given that she is a set up for pneumothorax with a transcutaneous approach and would likely very poorly tolerate a navigational bronchoscopic procedure given her chronic combined hypoxemic and hypercapnic respiratory failure. She is not a surgical candidate either. She indicated to me that she would likely want treatment if this was cancer. She has had a profound weight loss and is very weak. I think we should approach this with getting a PET/CT scan as an outpatient and likely refer her to radiation oncology for SBRT of the lung nodule. Dr. Kenny is my pulmonary colleague and he will be taking over the care of this patient tomorrow. Dr. Kenny does do navigational bronchoscopy. He can discuss with the patient and the family regarding the possibility of such a procedure. However, given her overall picture I think a more palliative approach would be the most reasonable option. Lastly, continue the patient's Symbicort and Spiriva. She would also benefit from noninvasive ventilation such as a trilogy ventilator. I placed an order for BiPAP while she is inpatient to be used at night. I would target tidal volumes of 350 to 400 mL. (2) Chronic respiratory failure with hypoxia: (3) Acute hypercapnic respiratory failure: (4) Right middle lobe pulmonary nodule: History of Present Illness Reason for Consultation: Acute hypercapnic and hypoxemic respiratory failure Requesting Physician: Dr. Hanna Attending Physician: Sukhwinder Wadsworth MD History of Present Illness This is a 74-year-old female with a past medical history of COPD with an FEV1 of 37% (absolute value of 0.86 L) predicted in 2018 that was postbronchodilator and a DLCO 34% predicted in 2017. She is well-known to the pulmonary service and sees Dr. wallace in the office frequently and she presented to the hospital due to worsening shortness of breath and confusion. Patient was found to be in acute hypoxemic and hypercapnic respiratory failure on admission. Her ABG on 09/09/2019 was 7.28/101/43 on room air and this morning was 7.33/50 9/68 on 4 L of oxygen. She is chronically on 4 L of oxygen. She is only able to walk approximately 25 feet before becoming very short of breath. She takes care of her who is on hospice her nursing. No family is available at bedside. There appears to be a daughter who is involved in the patient's care. The patient notes that she has been becoming more short of breath the last several days with some mild sputum production. She has also had some epistaxis recently. She is chronically on 5 mg of prednisone. She is also on Symbicort and Spiriva at home. She does have nebulizing treatments at home as well. She denies any chest pain currently. She wants to go home. She denies any fevers or chills. She has had an approximate 25 pound weight loss in the last 6 months that has been unintentional. Her procalcitonin today was negative. She is on azithromycin and ceftriaxone for presumptive pneumonia. He is on IV Solu-Medrol 40 mg every 6. She had a pretty minimal white count of 11,000 on admission which has improved. I suspect that this was related to hemoconcentration as all of her cell counts have dropped today. Allergies Allergy/AdvReac Type Severity Reaction Status Date / Time house dust mite Allergy Severe Verified 09/09/19 12:26 tree and shrub pollen Allergy Severe Verified 09/09/19 12:26 Sulfa (Sulfonamide Allergy Intermediate hives Verified 09/09/19 12:26 Antibiotics) Home Medications Home Medications Medication Instructions Recorded Confirmed Type Spiriva Respimat 2 puff INHALATION QAM 06/29/18 09/09/19 History Symbicort 2 puff INHALATION BID 06/29/18 09/09/19 History aspirin [Aspir-81] 81 mg PO QPM 06/29/18 09/09/19 History cranberry 8,400 mg PO QAM 06/29/18 09/09/19 History zinc 50 mg PO QAM 06/29/18 09/09/19 History alendronate 70 mg tablet 70 mg PO WK #12 tab 04/14/19 09/09/19 Rx Oxygen Home #1 ea 05/01/19 09/07/19 History hydrocortisone 2.5 % topical cream 1 appln TOPICAL BID PRN #1 gm 05/01/19 09/09/19 History levalbuterol HCl 0.63 mg/3 mL 0.63 mg INHALATION Q4H #15 ml 05/01/19 09/09/19 History solution for nebulization prednisone 5 mg tablet 5 mg PO QAM #30 tab 05/10/19 09/09/19 Rx citalopram 20 mg tablet 20 mg PO QAM #30 tab 05/19/19 09/09/19 Rx prednisone 10 mg tablet 10 mg PO .COMPLEX #30 tab 06/13/19 09/09/19 Rx metformin 500 mg tablet 500 mg PO BID #180 tab 06/20/19 09/09/19 Rx albuterol sulfate 90 mcg/actuation 2 puff INHALATION Q4H PRN #18 gm 08/03/19 09/09/19 Rx aerosol inhaler Patient History Medical History (Updated 09/10/19 @ 10:57 by Geovanny Hoffmann MD) Acute exacerbation of chronic obstructive pulmonary disease (COPD) Acute hypercapnic respiratory failure Anxiety Bunion of great toe of right foot Cardiac murmur 2014 [facility]CARDI[facility] CATH NO STENTS Chronic obstructive pulmonary disease Chronic respiratory failure with hypoxia Current use of steroid medication F/U DR WALLACE On home oxygen therapy 3/L/MIN [place] Osteoarthritis Right middle lobe pulmonary nodule SOB (shortness of breath) Type II diabetes mellitus Urinary tract infection HX Surgical History History of cardiac cath 2014-NO STENTS NEEDED [facility] History of carpal tunnel release RIGHT History of colonoscopy History of hysterectomy OVARIES REMAIN History of tonsillectomy Family History Grandmother (Paternal) Myocardial infarction Social History Preferred Language: Slovenian Communication Ability: Effective Visual Impairment: Limited Hearing Ability: Normal Reconciliation Analyst Required: No Beliefs That Will Affect Care: None marital status: Current Living Situation: Spouse current occupational status: retired Feels Safe at Home: Yes Smoking Status: Current some day smoker Tobacco Type: cigarettes ; Cigarettes Per Day: 3 ; Second Hand Exposure: No ; Hx Alcohol Use: No Hx Substance Use: No Childhood Exposure to Second-Hand Smoke: Yes caffeine: No during the past year weight has: decreased > 10 lbs Dental Care, Regularly: No Physical Activity Frequency: Does not Exercise Seatbelt Use: always Sunscreen Use: No Physical Exam Constitutional: The patient is very frail appearing. She is tremulous. She has bruising and ecchymosis throughout her body. She is extremely thin. Eyes: PERRL, conjunctivae normal, anicteric sclerae ENMT: external ear and nose normal, oropharynx normal Bitemporal wasting noted. Neck: trachea midline, no thyromegaly Respiratory: Minimal air entry bilaterally. No wheezing. Prolonged phase of exhalation. Cardiovascular: RRR, no murmur, no edema Gastrointestinal (Abdomen): normal bowel sounds, soft, nontender, no hepatosplenomegaly Musculoskeletal: no cyanosis or clubbing, extremities motor strength 5/5 Skin: Ecchymosis all over her body. Thin skin. Neurologic: PERRL, EOMI, accommodation nl, no face palsy, no dysarthria Tremulous Psychiatric: A+Ox3, euthymic affect Results & Data Vital Signs (Past 12 Hours) Vital Signs Temp Pulse Resp BP Pulse Ox 09/10/19 08:24 68 18 97 09/10/19 07:02 97.7 F 67 19 115/58 L 99 09/10/19 03:38 97.5 F L 78 19 110/55 L 100 09/10/19 01:18 75 18 100 09/10/19 00:01 98.1 F 72 22 108/54 L 100 I personally reviewed the patient's pertinent labs, chest imaging and prior pulmonary function testing. PG Care Time/CCT Total # of Minutes Spent Total Time Spent with Patient: Total time spent is greater than 50% in coordination of care (as documented) at patient's floor/unit and/or counseling patient:
[2019-09-10] MEDS ORDERED: INSULIN GLARGINE SOLOSTAR 100 UNITS/ML 3 ML PEN SC ONE (13:30)
[2019-09-10] MEDS ORDERED: LORazepam 0.5 MG TAB PO PRN (18:58)
--- NOTE | 2019-09-10 19:12 | Hospitalist Progress Note ---
Date of Service September 10, 2019 Assessment & Plan (1) Acute and chronic respiratory failure with hypercapnia: Suspected increase in supplemental oxygen decreased respiratory drive causing her to become more hypercapnic and short of breath. Aim O2 sats 92-94%, although noted ABG on admission shows her PaO2 to be significantly decreased at this level I suspect this is not accounts payable representative of her current ABG. (2) COPD exacerbation: Suspect presentation less likely exacerbation rather than just CO2 retention from turning up her oxygen and overexertion, however the will finish treatment for exacerbation as per pulmonary recommendations. Wean prednisone as per pulm recommendations over 5 days to her home dose. Procalcitonin negative without pneumonia findings on CT, agree with d/c ceftriaxone. Given unclear true exacerbation ok to also d/c azithromycin. Continue O/P inhalers - symbicort + spiriva (3) Right middle lobe pulmonary nodule: Dr Kenny to discuss possible navigational bronchoscopy with patient. Follow up with pulmonology after discharge. Would defer oncology input until after diagnosis. Pt not interested in palliative care at this present time (aware of services through her who also has lung cancer). (4) Tobacco use disorder: Patient does not want family to know she is still smoking. Cessation advice given to patient alone. (5) Type II diabetes mellitus: Hold Metformin Insulin sliding scale coverage, added lantus 10 units BID (do not give if glucose < 120) especially with increase in steroids. (6) Coronary artery disease: Troponins negative Continue aspirin. Not on statin as O/P and not acute issue therefore will defer starting at this time. Unclear degree of CAD as no cath or cardiology note in [facility] (7) Bursitis of ankle: Right lateral malleolus bursitis for many years. Recently opened up and draining which is concerning for possible osteomyelitis however this is been present for the last month. Lack of improvement with chronic steroid use is also concerning. Will get ankle x-ray. Consider O/P MRI, referral to ortho if XR negative for osteomyelitis and not resolving. (8) Age related osteoporosis: Continue alendronate on discharge (9) Normocytic anemia: Hemoglobin dropped from admission likely due to rehydration with IV fluids. Likely due to anemia of chronic disease given severe COPD. However possible may be contributing towards hypoxia therefore will get routine iron, B12 and folate labs to assess further. Repeat CBC in AM. (10) DVT prophylaxis: Lovenox, given patient low weight will reduce dose to 30 mg qpm (11) Full code status: Discussed with patient extensively with daughter at bedside. She wishes to have full CPR in the event of cardiac arrest and intubation in the event of a respiratory arrest - despite the likelihood this will likely cause pain and be unsuccessful given her severe COPD. (12) Discharge planning issues: PT, OT to determine safety of going home. Potential discharge for Wednesday if cleared by pulmonology. Subjective Revisited history with the patient. She reports progressive worsening shortness of breath starting on . She was called by her PCP due to a bicarb level of 43 and believes she was told to turn up her oxygen because of this; although no mention of this is on the associated telephone note. She feels this made her worse and more short of breath. Additionally later that night her who also is on oxygen ran out of oxygen and she overexerted herself trying to get him hooked back up. Her daughter noticed her mother having increased pursed lip breathing prior ot calling for an ambulance to bring her to the ER. Discussed CODE STATUS with patient in view of severe COPD. She was able to understand, weigh up, come to a decision and communicate her decision regarding wanting to be for full resuscitation. Review of Systems Review of Systems: All systems reviewed & are unremarkable except as noted in HPI & below Musculoskeletal: Right lateral malleolus erythema for years but notes that 1 month ago and has been draining since and very painful Physical Exam Constitutional: + cachectic; no acute distress Respiratory: + uses accessory muscles, + prolonged expiratory phase and + pursed lip breathing (Intermittent); no respiratory distress, no labored breathing and no cough Auscultation: + breath sounds absent (Bibasal) and + diminished lung sounds (Very minimal air entry throughout); no crackles, no rales, no rhonchi and no wheezes Cardiovascular: Rate/Rhythm: regular rate and regular rhythm Heart Sounds: + murmur Extremities: normal capillary refill; no calf tenderness and no pedal edema Gastrointestinal (Abdomen): Inspection/Auscultation: normal bowel sounds; abdomen not distended Percussion/Palpation: abdomen soft; abdomen nontender, no guarding and abdomen not rigid Musculoskeletal: Significant generalized muscle wasting. Lipoma noted on left upper extremity Skin: Erythema of the lateral right ankle malleolus, painful to touch, small eschar in center of erythema, no warmth, tender to palpation Neurologic: moves all extremities and awake; no focal motor deficits and not confused Speech / Cognition: normal speech Motor/Sensory: + tremor (Action); no pronator drift and no sensory deficit Psychiatric: A+Ox3, euthymic affect Lymphatic: no cervical lymphadenopathy, no subclavicular lymphadenopathy and no axillary lymphadenopathy Results & Data Vital Signs (Past 12 Hours) Vital Signs Temp Pulse Pulse Resp BP Pulse Ox 09/10/19 15:09 36.7 C 75 16 129/65 94 09/10/19 11:08 36.8 C 76 16 113/55 L 91 09/10/19 08:24 68 18 97 09/10/19 08:05 70 PG Care Time/CCT Total # of Minutes Spent Total Time Spent with Patient: Total time spent is greater than 50% in c oordination of care (as documented) at patient's floor/unit and/or counseling patient: (1) Coronary artery disease Coronary Disease-Associated Artery/Lesion type: [place] artery [place] vs. transplanted heart: [place] heart Associated angina: without angina Qualified Code(s): I25.10 - Atherosclerotic heart disease of [place] coronary artery without angina pectoris (2) Type II diabetes mellitus Diabetes mellitus long term care phlebotomist insulin use: without penitentiary use Diabetes favio itus complication status: with circulatory complication Diabetes mellitus complication detail: with other circulatory complications Qualified Code(s): E11.59 - Type 2 diabetes mellitus with other circulatory complications (3) Bursitis of ankle Laterality: right Qualified Code(s): M77.51 - Other enthesopathy of right foot and ankle (4) Age related osteoporosis Presence of current pathological fracture: without current pathological fracture Qualified Code(s): M81.0 - Age-related osteoporosis without current pathological fracture
--- NOTE | 2019-09-10 20:28 | XRay Report ---
XR ankle RT min 3V routine CLINICAL HISTORY: 74 years-old Female presenting with right lateral malleolus bursitis, ?osteomyeliti s. TECHNIQUE: Frontal, mortise, and lateral views of the right ankle were obtained. COMPARISON: None. FINDINGS: Osteopenia suspected. No acute fracture or malalignment. No advanced degenerative change. No radiogra phic soft tissue abnormality. IMPRESSION: No acute osseous injury. Electronically signed by: Edgardo Hemphill M.D. 09/10/2019 8:26 PM
[2019-09-10] MEDS ORDERED: INSULIN GLARGINE SOLOSTAR 100 UNITS/ML 3 ML PEN SC SCH (21:00)
[2019-09-10] MEDS: INSULIN GLARGINE SOLOSTAR 100 UNITS/ML 3 ML PEN SC SCH (21:07)
[2019-09-10] MEDS: ASPIRIN 81 MG ECTAB PO SCH (21:24)
[2019-09-10] MEDS: ENOXAPARIN INJ 40 MG/0.4 ML SYR SQ SCH (21:25)
[2019-09-11 06:44] LABS: Estimated Average Glucose 126 mg/dl
[2019-09-11 07:34] LABS: Hematocrit (blood only) 29.4 % (37-47); Hemoglobin 9.1 g/dL (12.0-16.0); Mean Corpuscular Hemoglobin 29.6 pg (25-34); Mean Corpuscular Volume 95.8 fL (80-100); Mean Platelet Volume 11.3 fL (7.4-10.4); Platelet Count 146 K/uL (130-400); RDW Coefficient of Variation 13.8 % (11.5-14.5); RDW Standard Deviation 48.3 fL (36.4-46.3); Red Blood Count 3.07 M/uL (4.2-5.4); White Blood Count 7.51 K/uL (4.8-10.8)
[2019-09-11 08:05] LABS: Folate (Folic Acid) 10.01 ng/ml (>5.38)
[2019-09-11] MEDS: BUDESONIDE/FORMOTEROL FUMARATE 160/4.5 60 PUFFS/INHALER INH SCH ×2 (08:17→21:12)
[2019-09-11] MEDS: predniSONE 20 MG TAB PO SCH (08:17)
[2019-09-11] MEDS: FAMOTIDINE 20 MG TAB PO SCH ×2 (08:17→20:46)
[2019-09-11] MEDS: CITALOPRAM 20 MG TAB PO SCH (08:17)
[2019-09-11] MEDS: TIOTROPIUM BROMIDE 5 PUFF/90 MCG INH INH SCH (08:18)
[2019-09-11] MEDS: INSULIN GLARGINE SOLOSTAR 100 UNITS/ML 3 ML PEN SC SCH ×2 (08:19→20:46)
[2019-09-11] MEDS: INSULIN ASPART 100 UNITS/ML 3 ML PEN SC SCH ×4 (08:21→20:46)
[2019-09-11 08:25] LABS: BUN Creatinine Ratio 40.4 (10-20); Calcium 8.5 mg/dl (8.5-10.1); Creatinine Clr Calc Pharmacy 77.8 ml/min; Est GFR (African American) 116.2; Est GFR (Non-African American) 100.3; Ferritin 11.4 ng/ml (8-388); Potassium 4.1 mmol/L (3.5-5.1)
--- NOTE | 2019-09-11 12:00 | Pulmonology Progress Note ---
Date of Service September 11, 2019 Assessment & Plan (1) Acute exacerbation of chronic obstructive pulmonary disease (COPD): Patient clinically doing better with respect to her COPD exacerbation. Patient back to her baseline. Would continue with p.o. prednisone for 5 more days and stop. Continue with LAMA and Laba/ICS inhaler. For her spiculated pulmonary nodule which is located peripherally on the right side. The best approach for this would be CT-guided lung biopsy. Had a discussion with radiology here which said that they would not be able to do it. The next would be to get a PET/CT outpatient as soon as possible to see if there are any other lesions which are easily accessible. We will also try to see if I will be able to reach the nodule with navigational bronchoscopy. Although she would likely poorly tolerate a navigational bronchoscopic procedure given her chronic combined hypoxemic and hypercapnic respiratory failure. Patient has severe emphysema she is high risk for pneumothorax or other complications irrespective of what procedure is planned to be done. SBRT with Radiation oncology referral is another option. The options were offered to the patient. She states she has who is also going to be started on chemo apparently. She will think about it while PET/CT is done. All questions were answered appropriately and in dept. Needs to follow up with pulmonary as soon as PET/CT is done. (2) Chronic respiratory failure with hypoxia: (3) Acute hypercapnic respiratory failure: (4) Right middle lobe pulmonary nodule: Subjective Patient seen and examined at bedside. No acute distress, no adverse events overnight. Patient said that she feels better. States that the shortness of breath is improved. Denies any cough, no phlegm. No nausea vomiting. Denies any chest pain. No dizziness, no dysuria, no hematuria. Patient was saturating 96% on 3 L nasal cannula at rest of the time of examination. Review of Systems Review of Systems: All systems reviewed & are unremarkable except as noted in HPI & below Physical Exam Physical Exam: Constitutional: No acute distress, temporal wasting HEENT: EOMI, PERRLA, arcus senilis bilaterally Respiratory system: Decreased air entry bilaterally, no wheeze, no rhonchi, no crackles CVS: S1-S2 positive, positive 2 out of 6 systolic ejection murmur appreciated best at the aorta, no gallops Abdomen: Soft, nontender, nondistended, positive bowel sounds x4 Extremities: +2 pulses bilaterally radialis/ dorsalis pedis, no edema, no cyanosis, positive clubbing Neuro: Awake alert oriented x3 Psych: Normal mood and affect G/U: No Young Skin: no rashes, warm and dry Lymphatic: no cervical or axillary lymphadenopathy Results & Data Vital Signs (Past 12 Hours) Vital Signs Temp Pulse Pulse Resp BP Pulse Ox 09/11/19 10:58 36.7 C 72 19 125/61 90 09/11/19 08:00 63 09/11/19 07:30 36.7 C 66 18 122/76 96 09/11/19 03:32 36.5 C 66 19 131/79 96 09/11/19 02:02 60 20 94 PG Care Time/CCT Total # of Minutes Spent Total Time Spent with Patient: Total time spent is greater than 50% in coordination of care (as documented) at patient's floor/unit and/or counseling patient:
[2019-09-11] MEDS: CYANOCOBALAMIN 1000 MCG/ML VIAL IM SCH (12:07)
--- NOTE | 2019-09-11 12:55 | Hospitalist Progress Note ---
Date of Service September 11, 2019 Assessment & Plan (1) Acute and chronic respiratory failure with hypercapnia: Suspected increase in supplemental oxygen decreased respiratory drive causing her to become more hypercapnic and short of breath. -continue supplemental O2 to keep sats 92-94% PaCO2 improved on subsequent testing Qualifies for Trilogy and Pulm recommending this at home (2) COPD exacerbation: Suspect presentation less likely exacerbation rather than just CO2 retention from turning up her oxygen and overexertion, however the will finish treatment for exacerbation as per pulmonary recommendations. -continue prednisone as per pulm recommendations for 5 more days to her home dose. Procalcitonin negative without pneumonia findings on CT, agree with d/c ceftriaxone. Given unclear true exacerbation ok to also d/c azithromycin. Continue O/P inhalers - symbicort + spiriva (3) Right middle lobe pulmonary nodule: Dr Kenny discussed possible navigational bronchoscopy with patient vs CT-g uided biopsy at outside facility as cannot be safely done here. Plan is now for PET/CT shortly after discharge and then possible CT-guided bx after that Follow up with pulmonology after discharge. Would defer oncology input until after diagnosis. Pt not interested in palliative care at this present time (aware of services through her who also has lung cancer). (4) Tobacco use disorder: Patient does not want family to know she is still smoking. Cessation advice given to patient alone. (5) Type II diabetes mellitus: Hold Metformin Insulin sliding scale coverage, added lantus 10 units BID (do not give if glucose < 120) especially with increase in steroids. (6) Coronary artery disease: Troponins negative Continue aspirin. Not on statin as O/P and not acute issue therefore will defer starting at this time. Unclear degree of CAD as no cath or cardiology note in [facility] (7) Bursitis of ankle: Right lateral malleolus bursitis for many years. Recently opened up and draining which is concerning for possible osteomyelitis however this is been present for the last month. Lack of improvement with chronic steroid use is also concerning. -ankle x-ray negative Pulses are excellent in the feet bilat -Consider O/P MRI, referral to ortho as outpt (8) Age related osteoporosis: Continue alendronate on discharge (9) Normocytic anemia: Hemoglobin dropped from admission likely due to rehydration with IV fluids. Likely due to anemia of chronic disease given severe COPD. However possible may be contributing towards hypoxia -iron studies show Fe-def with ferritin only 11 -also with low B12 at 241 and folate normal -start treatment as below (10) Vitamin B12 deficiency (dietary) anemia: add B12 1000mcg IM daily while here and then convert to po on dc (11) Iron deficiency anemia: ferritin 11 Needs outpt GI workup for Fe-def anemia -start FeSO4 upon discharge (12) DVT prophylaxis: Lovenox, given patient low weight will reduce dose to 30 mg qpm (13) Full code status: Discussed with patient extensively with daughter at bedside as per previous hospitalist. She wishes to have full CPR in the event of cardiac arrest and intubation in the event of a respiratory arrest - despite the likelihood this will likely cause pain and be unsuccessful given her severe COPD. (14) Discharge planning issues: PT, OT to determine safety of going home. Trying to set up Trilogy for koko [facility]man prior to dc Dispo-possibly dc to home tomorrow Subjective Pt very anxious to leave the hospital. Reports her dyspnea is almost back to her baseline but not quite. She is at her usual home O2 level. Stil coughing. No ches tpain. Is accepting of using Trilogy at home Tele with NSR rates 60-70s Review of Systems Review of Systems: All systems reviewed & are unremarkable except as noted in HPI & below Physical Exam Constitutional: + cachectic; no acute distress Eyes: + anicteric sclerae ENMT: external ear and nose normal, oropharynx normal Neck: trachea midline, no thyromegaly Respiratory: normal respiratory effort; does not use accessory muscles Auscultation: + diminished lung sounds (throughout) Cardiovascular: RRR, no murmur, no edema Chest (Breasts): Chest: normal inspection of chest Gastrointestinal (Abdomen): normal bowel sounds, soft, nontender, no hepatosplenomegaly Musculoskeletal: Extremities: extremities normal to inspection; no cyanosis and no clubbing Skin: no rashes, warm and dry Neurologic: moves all extremities and awake; no focal motor deficits Psychiatric: A+Ox3, euthymic affect Lymphatic: no lymphedema Results & Data Vital Signs (Past 12 Hours) Vital Signs Temp Pulse Pulse Resp BP Pulse Ox 09/11/19 10:58 36.7 C 72 19 125/61 90 09/11/19 08:00 63 09/11/19 07:30 36.7 C 66 18 122/76 96 09/11/19 03:32 36.5 C 66 19 131/79 96 09/11/19 02:02 60 20 94 Laboratory Results 09/11/19 09/11/19 09/11/19 Range/Units 20:10 16:21 11:16 Sodium (136-145) mmol/L Potassium (3.5-5.1) mmol/L Chloride (98-107) mmol/L Carbon Dioxide (21-32) mmol/L Anion Gap (3-11) BUN (7-18) mg/dl Creatinine (0.6-1.2) mg/dl Est Cr Clr Drug Dosing ml/min Est GFR ( Amer) Est GFR (Non-Af Amer) BUN/Creatinine Ratio (10-20) Glucose (70-99) mg/dl POC Glucose 198 H 288 H 247 H (70-99) Calcium (8.5-10.1) mg/dl Iron (35-150) mcg/dl Transferrin (200-360) mg/dl Transferrin % Sat (15-50) % Ferritin (8-388) ng/ml Vitamin B12 (211-911) pg/ml Folate (>5.38) ng/ml 09/11/19 09/11/19 Range/Units 06:40 06:40 Sodium 134 L (136-145) mmol/L Potassium 4.1 (3.5-5.1) mmol/L Chloride 92 L (98-107) mmol/L Carbon Dioxide 44 H* (21-32) mmol/L Anion Gap 0 L (3-11) BUN 17 (7-18) mg/dl Creatinine 0.42 L (0.6-1.2) mg/dl Est Cr Clr Drug Dosing 77.8 ml/min Est GFR ( Amer) 116.2 Est GFR (Non-Af Amer) 100.3 BUN/Creatinine Ratio 40.4 H (10-20) Glucose 76 (70-99) mg/dl POC Glucose (70-99) Calcium 8.5 (8.5-10.1) mg/dl Iron 58 (35-150) mcg/dl Transferrin 234 (200-360) mg/dl Transferrin % Sat 18 (15-50) % Ferritin 11.4 (8-388) ng/ml Vitamin B12 241 (211-911) pg/ml Folate 10.01 (>5.38) ng/ml PG Care Time/CCT Total # of Minutes Spent Total Time Spent with Patient: Total time spent is greater than 50% in coordination of care (as documented) at patient's floor/unit and/or counseling patient: (1) Bursitis of ankle Laterality: right Qualified Code(s): M77.51 - Other enthesopathy of right foot and ankle (2) Type II diabetes mellitus Diabetes mellitus complication detail: with other circulatory complications Diabetes mellitus complication status: with circulatory complication Diabetes mellitus asset management lead insulin use: without [facility] use Qualified Code(s): E11.59 - Type 2 diabetes mellitus with other circulatory complications (3) Coronary artery disease Associated angina: without angina Coronary Disease-Associated Artery/Lesion type: [place] artery [place] vs. transplanted heart: [place] heart Qualified Code(s): I25.10 - Atherosclerotic heart disease of [place] coronary artery without angina pectoris (4) Age related osteoporosis Presence of current pathological fracture: without current pathological fracture Qualified Code(s): M81.0 - Age-related osteoporosis without current pathological fracture
[2019-09-11] MEDS: ASPIRIN 81 MG ECTAB PO SCH (20:46)
[2019-09-11] MEDS ORDERED: ENOXAPARIN INJ 30 MG/0.3 ML SYR SQ SCH (21:00)
[2019-09-11 23:47] VITALS: TEMP 98.1
[2019-09-12 06:35] VITALS: O2SAT 100
[2019-09-12] MEDS: TIOTROPIUM BROMIDE 5 PUFF/90 MCG INH INH SCH (08:00)
[2019-09-12] MEDS: CITALOPRAM 20 MG TAB PO SCH (08:00)
[2019-09-12] MEDS: BUDESONIDE/FORMOTEROL FUMARATE 160/4.5 60 PUFFS/INHALER INH SCH (08:00)
[2019-09-12] MEDS: predniSONE 20 MG TAB PO SCH (08:00)
[2019-09-12] MEDS: FAMOTIDINE 20 MG TAB PO SCH (08:01)
[2019-09-12] MEDS: INSULIN GLARGINE SOLOSTAR 100 UNITS/ML 3 ML PEN SC SCH (08:17)
[2019-09-12] MEDS: INSULIN ASPART 100 UNITS/ML 3 ML PEN SC SCH ×2 (08:18→12:42)
[2019-09-12] MEDS ORDERED: ZINC SULFATE 220 MG CAPSULE PO SCH (09:00)
--- NOTE | 2019-09-12 09:27 | Pulmonology Progress Note ---
Date of Service September 12, 2019 Assessment & Plan (1) Acute exacerbation of chronic obstructive pulmonary disease (COPD): Patient clinically doing better with respect to her COPD exacerbation. Patient back to her baseline. Would continue with p.o. prednisone for 4 more days and stop. Continue with LAMA and Laba/ICS inhaler. For her spiculated pulmonary nodule which is located peripherally on the right side. The best approach for this would be CT-guided lung biopsy. Had a discussion with radiology here which said that they would not be able to do it. The next would be to get a PET/CT outpatient as soon as possible to see if there are any other lesions which are easily accessible. We will also try to see if I will be able to reach the nodule with navigational bronchoscopy. Although she would likely poorly tolerate a navigational bronchoscopic procedure given her chronic combined hypoxemic and hypercapnic respiratory failure. Patient has severe emphysema she is high risk for pneumothorax or other complications irrespective of what procedure is planned to be done. SBRT with Radiation oncology referral is another option. Patient is willing to have CT-guided lung biopsy done at [facility]. We will try to get in touch with interventional radiology at [place] today again to see if they will be able to do the procedure. The options were offered to the patient. She states she has who is also going to be started on chemo apparently. She will think about it while PET/CT is done. All questions were answered appropriately and in dept. Needs to follow up with pulmonary as soon as PET/CT is done. Due to chronic respiratory failure consequent to COPD, patient now requires a noninvasive home ventilator. Bilevel therapy with and without a rate would be ineffective as patient requires a volume targeted mode. Ventilation is required to decrease work of breathing and improve pulmonary status. Interruption of ventilator support would lead to decline of health status. NIMV settings should be AVAPS-AE; Breath rate: auto; Inspiratory time:auto; Sigh: off; Tidal Volume: 350-450, PS min: 4-10 PS max: 12-20; EPAP min: 6-10; EPAP max: 10-16; AVAPS rate: 14 during sleep and as needed (2) Chronic respiratory failure with hypoxia: (3) Acute hypercapnic respiratory failure: (4) Right middle lobe pulmonary nodule: Subjective Patient seen and examined at bedside. No acute distress, no adverse events overnight. Patient states that she is feeling better. Shortness of breath is improved. Denies any cough, no phlegm. No headache. No nausea vomiting. Denies any chest pain. No dizziness, no dysuria, no shadi turia. Patient was saturating 92% on 2 L nasal cannula at rest of the time of examination at rest. Review of Systems Review of Systems: All systems reviewed & are unremarkable except as noted in HPI & below Physical Exam Physical Exam: Constitutional: No acute distress, temporal wasting HEENT: EOMI, PERRLA, arcus senilis bilaterally Respiratory system: Decreased air entry bilaterally, no wheeze, no rhonchi, no crackles CVS: S1-S2 positive, positive 2 out of 6 systolic ejection murmur appreciated best at the aorta, no gallops Abdomen: Soft, nontender, nondistended, positive bowel sounds x4 Extremities: +2 pulses bilaterally radialis/ dorsalis pedis, no edema, no cyanosis, positive clubbing Neuro: Awake alert oriented x3 Psych: Normal mood and affect G/U: No Young Skin: no rashes, warm and dry Lymphatic: no cervical or axillary lymphadenopathy Results & Data Vital Signs (Past 12 Hours) Vital Signs Temp Pulse Pulse Resp BP Pulse Ox 09/12/19 06:34 36.7 C 62 16 135/66 100 09/11/19 23:46 36.7 C 84 20 112/62 91 09/11/19 23:36 69 21 95 09/11/19 06:40 09/11/19 06:40 PG Care Time/CCT Total # of Minutes Spent Total Time Spent with Patient: Total time spent is greater than 50% in coordination of care (as documented) at patient's floor/unit and/or counseling patient:
--- NOTE | 2019-09-12 10:54 | Discharge Summary ---
Date of Service September 12, 2019 Admission HPI Per Admitting Provider 74 y/o female presented to the ED with increased SOB and mild confusion in that she was not able to sort her her usual morning medications. Upon daughter arriving to patients house, the patient was noted to be off balance. The patient normally uses 4L nc but had been increased to 4.5L yesterday then increased to 5L today. The patient told daughter that she had chest pain, but this resolved before coming into the ED. She reports SOB is her main concern. She lives with her who himself is in poor health. Principal Diagnosis Acute on chronic hypoxic and hypercapnic respiratory failure, COPD Exacerbation Discharge Exam Constitutional + cachectic; no acute distress Eyes + anicteric sclerae Neck trachea midline, no thyromegaly Respiratory normal respiratory effort; does not use accessory muscles Auscultation: + diminished lung sounds (throughout) Cardiovascular RRR, no murmur, no edema Chest (Breasts) Chest: normal inspection of chest Gastrointestinal (Abdomen) normal bowel sounds, soft, nontender, no hepatosplenomegaly Musculoskeletal Extremities: extremities normal to inspection; no cyanosis and no clubbing Skin no rashes, warm and dry Neurologic moves all extremities and awake; no focal motor deficits Psychiatric A+Ox3, euthymic affect Lymphatic no lymphedema Discharge Data Allergies Allergy/AdvReac Type Severity Reaction Status Date / Time house dust mite Allergy Severe Verified 09/09/19 12:26 tree and shrub pollen Allergy Severe Verified 09/09/19 12:26 Sulfa (Sulfonamide Allergy Intermediate hives Verified 09/09/19 12:26 Antibiotics) Consultations 09/09/19 15:28 ED Decision to Admit Stat 09/09/19 18:00 Consult Pulmonology Routine 09/11/19 10:29 Consult Case Management - Discharge Planning Routine Ordered Studies 09/09/19 13:34 CT head/brain wo con Stat 09/09/19 18:00 CT chest wo con Routine CXR Hospital Course (1) Acute and chronic respiratory failure with hypercapnia: Suspected increase in supplemental oxygen decreased respiratory drive causing her to become more hypercapnic and short of breath. Also with COPD exacerbation -continue supplemental O2 at 2LNC and sats are 99% PaCO2 improved on subsequent testing Qualifies for Trilogy and Pulm recommending this at home--ordered and Case Management arranging for home delivery (2) COPD exacerbation: Suspect presentation less likely exacerbation rather than just CO2 retention from turning up her oxygen and overexertion, however the will finish treatment for exacerbation as per pulmonary recommendations. -continue prednisone as per pulm recommendations for 4 more days and then return to her home dose of 5mg daily Procalcitonin negative without pneumonia findings on CT, agree with d/c ceftriaxone. Given unclear true exacerbation ok to also d/c azithromycin. Continue O/P inhalers - symbicort + spiriva (3) Right middle lobe pulmonary nodule: Dr Kenny discussed possible navigational bronchoscopy with patient vs CT- guided biopsy at outside facility as cannot be safely done here. Plan is now for PET/CT shortly after discharge and then possible CT-guided bx after that Follow up with pulmonology after discharge. Would defer oncology input until after diagnosis. Pt not interested in palliative care at this present time (aware of services through her who also has lung cancer). (4) Tobacco use disorder: Patient does not want family to know she is still smoking. Cessation advice given to patient alone. (5) Type II diabetes mellitus: Held Metformin while inpatient Insulin sliding scale coverage, added lantus 10 units BID (do not give if glucose < 120) especially with increase in steroids. -restart metformin on dc (6) Coronary artery disease: Troponins negative Continue aspirin. Not on statin as O/P and not acute issue therefore will defer starting at this time. Unclear degree of CAD as no cath or cardiology note in [facility] (7) Bursitis of ankle: Right lateral malleolus bursitis for many years. Recently opened up and draining which is concerning for possible osteomyelitis however this is been present for the last month. Lack of improvement with chronic steroid use is also concerning. Currently wound is closed over -ankle x-ray negative Pulses are excellent in the feet bilat -Consider O/P MRI, referral to ortho as outpt (8) Age related osteoporosis: Continue alendronate on discharge (9) Normocytic anemia: Hemoglobin dropped from admission likely due to rehydration with IV fluids. Likely due to anemia of chronic disease given severe COPD. However possible may be contributing towards hypoxia -iron studies show Fe-def with ferritin only 11 -also with low B12 at 241 and folate normal -start treatment as below (10) Vitamin B12 deficiency (dietary) anemia: add B12 1000mcg IM daily while here and then convert to po on dc (11) Iron deficiency anemia: ferritin 11 Needs outpt GI workup for Fe-def anemia -start FeSO4 upon discharge (12) DVT prophylaxis: Lovenox SQ given (13) Full code status: Discussed with patient extensively with daughter at bedside as per previous hospitalist. She wishes to have full CPR in the event of cardiac arrest and intubation in the event of a respiratory arrest - despite the likelihood this will likely cause pain and be unsuccessful given her severe COPD. (14) Discharge planning issues: Setting up Trilogy for home use today Dispo- dc to home today Total Time Total Time Spent Total Time Spent (In Minutes): 35 min Total Time Includes: Examination of the Patient, Discharge Planning and Medication Reconciliation Discharge Plan Discharge Items Patient Disposition: Home - Home Health Services Reason For Visit: Shortness of breath Discharge Diagnosis: Acute on chronic hypoxic (low oxygen) hypercapnic (high carbon dioxide) respiratory failure COPD exacerbation Right lung nodule Condition on Discharge: Good Goals: You have been hospitalized for an acute medical problem. During your stay at [facility], we have made an effort to correct the problem that brought you to the hospital while keeping you as comfortable as possible. Medications were used to bring your condition under control and your discharge instructions will include directions for any medications you should take after leaving the hospital. Please make sure you see your Primary Care Provider as part of your follow up plan. Activity: Resume your previous activity Bathing: No limitations Exercise/Sports: As tolerated Non-emergency contact: Primary Care Provider and Adjunct Political Science Instructor Call non-emergency contact if: you have any medication questions and your symptoms worsen Follow-up/Referrals: [facility] [Other] - 09/18/19 9:15 am (Please, follow up at [facility] for a CT PET scan on WednesdaySeptember 18 at 9:30 (arrive at 9:15 am). *The test will be performed in the rear of this hospital building. You should park BEHIND the hospital in [address] and enter via [facility]. If you have any questions, call the PET scan scheduling dept at [phone]. SOMEONE FROM THE PET SCAN DEPARTMENT WILL BE CALLING YOU, PRIOR TO THE SCAN. THE NUMBER WILL COME UP AN [phone] NUMBER ON YOUR TELEPHONE CALLER ID. YOU MUST ANSWER THIS CALL TO CONFIRM THE APPOINTMENT) Mary Hester, [Primary Care Provider] - 09/15/19 8:15 am (Please, follow up at Dr. Hester's office with her associate, Linette Adorno PA-C, on WednesdaySeptember 15 at 8:15 am. *If you need to change this appointment, call the office at [phone]. ) Lavern Kenny MD [Physician] - 10/02/19 11:15 am (Please, follow up at [facility] Pulmonology Office with Dr. Kenny on WednesdayOctober 02 at 11:15 am. *The office is located in [address] of [facility], next to this hospital. If you need to change this appointment, call the office at [phone].) Diet: Carb Consistent or DM2 and Heart Healthy Addtl Attending Provider Instructions: Please finish out the prednisone at 40mg daily x 4 more days and then return to your usual 5mg daily dose. You will have a PET/CT scan to help determine if the growth in your lung is cancerous or not. Unfortunately the soonest we could get this scheduled for you is after the New Year and the latest it could be scheduled is for 9:15 AM. Please follow up with the Adjunct Political Science Instructor after that as scheduled for you. A Trilogy Ventilator device will be delivered to your house and will help keep your carbon dioxide levels down so you do not have respiratory failure again requiring hospitalization. Please wear this every night and with naps during the daytime. You are only requiring 2L of your nasal cannula for oxygen at this point. You were also found to be anemic which is due to iron deficiency and from B12 deficiency. Please buy these supplements on the shelf at the drug store and follow up with your PCP regarding the anemia. You may need endoscopy with a Automation Sales Manager to find a source of bleeding in the gut as the cause of your iron deficiency. Pending Studies at Discharge: No Stand-Alone Forms: [facility], Smoking Cessation Medications and DC Order Prescriptions: New cyanocobalamin (vitamin B-12) 1,000 mcg capsule 1,000 mcg PO DAILY Qty: 30 RF: 0 ferrous sulfate 325 mg (65 mg iron) tablet 325 mg PO DAILY Qty: 30 RF: 0 Continued prednisone 5 mg tablet 5 mg PO QAM Qty: 30 RF: 5 citalopram 20 mg tablet 20 mg PO QAM Qty: 30 RF: 5 metformin 500 mg tablet 500 mg PO BID Qty: 180 RF: 1 albuterol sulfate [Ventolin HFA] 90 mcg/actuation HFA aerosol inhaler 2 puff INHALATION Q4H PRN (Reason: Wheezing) Qty: 18 RF: 5 alendronate 70 mg tablet 70 mg PO WK Qty: 12 RF: 1 hydrocortisone 2.5 % cream 1 appln topical BID PRN (Reason: Itching) Qty: 1 RF: 0 levalbuterol HCl 0.63 mg/3 mL solution for nebulization 0.63 mg inhalation Q4H Qty: 15 RF: 0 (DME) Oxygen Home Liters Per Minute See Dose Instructions .ROUTE .MEDSUPPLY Qty: 1 RF: 0 aspirin [Aspir-81] 81 mg Tablet,Delayed Release (Dr/Ec) 81 mg PO QPM RF: 0 zinc 50 mg Tablet 50 mg PO QAM RF: 0 cranberry 500 mg Capsule 8,400 mg PO QAM RF: 0 Symbicort 160-4.5 mcg/actuation Hfa Aerosol Inhaler 2 puff INHALATION BID RF: 0 Spiriva Respimat 2.5 mcg/actuation Mist 2 puff INHALATION QAM RF: 0 Changed prednisone 10 mg tablet 40 mg PO DAILY 4 Days Qty: 16 RF: 0 Discharge Orders: Discharge Order (Routine); Ordered 09/12/19 Ordered By: Tran Cowan/Other Patient Handouts: Hyperglycemia, Hypoglycemia, Diabetes Type 2 Coping, Diabetes Healthy Meals Admission Data Admit Date/Time: 09/09/19 16:42 Attending Provider: Tran Coates Admit Provider: Art Ricketts Primary Care Provider: Mary Hester Other Providers: Art Ricketts ; Geovanny Hoffmann
[2019-09-12 11:09] VITALS: BP 125/61; PULSE 72
[2019-09-12] MEDS: CYANOCOBALAMIN 1000 MCG/ML VIAL IM SCH (11:28)
== END 2019-09-12 14:16 | disposition home health service (06) | DRG 189 ==
LOC: ED 11:51 → SUATTDRO 16:42 → 2S 16:42 → 4W 09-11 14:33

== ENCOUNTER 2019-10-09 11:40 | Observation (INO) ==
[2019-10-09] MEDS ORDERED: methylPREDNISolone 60 MG in SYRINGE 1 ML IV STA (12:11)
[2019-10-09] MEDS ORDERED: ALBUT/IPRATROP 3MG/0.5MG NEB 3 ML VIAL INH STA (12:11)
[2019-10-09 12:38] LABS: Basophils # (auto) 0.02 K/uL (0-0.2); Basophils % (auto) 0.3 %; Eosinophils # (auto) 0.02 K/uL (0-0.5); Eosinophils % (auto) 0.3 %; Hematocrit (blood only) 36.9 % (37-47); Hemoglobin 11.4 g/dL (12.0-16.0); Immature Granulocytes # (auto) 0.01 K/uL (0.00-0.02); Immature Granulocytes % (auto) 0.1 %; Lymphocytes # (auto) 0.87 K/uL (1.2-3.4); Lymphocytes % (auto) 11.9 %; Mean Corpuscular Hemoglobin 29.5 pg (25-34); Mean Corpuscular Hgb Conc 30.9 g/dL (32-36); Mean Corpuscular Volume 95.6 fL (80-100); Mean Platelet Volume 10.5 fL (7.4-10.4); Monocytes # (auto) 0.77 K/uL (0.11-0.59); Monocytes % (auto) 10.5 %; Neutrophils # (auto) 5.61 K/uL (1.4-6.5); Neutrophils % (auto) 76.9 %; Platelet Count 232 K/uL (130-400); RDW Coefficient of Variation 14.6 % (11.5-14.5); RDW Standard Deviation 51.6 fL (36.4-46.3); Red Blood Count 3.86 M/uL (4.2-5.4)
[2019-10-09] MEDS ORDERED: methylPREDNISolone 125 MG/2 ML VIAL ONE (12:44)
[2019-10-09 12:50] LABS: Partial Thromboplastin Time 27.1 Seconds (21.0-31.0); Prothrombin Time 10.4 Seconds (9.0-12.0)
--- NOTE | 2019-10-09 12:51 | XRay Report ---
XR chest 1V portable CLINICAL HISTORY: Shortness of breath COMPARISON STUDY: 09/09/2019 FINDINGS: The patient is hyperinflated. There is a 19 mm right midlung zone nodule. There is no acute parenchymal consolidation. There is no failure. There are no pleural effusions.[ IMPRESSION: 1. Pulmonary emphysema 2. 19 mm right midlung zone pulmonary nodule 3. No evidence of acute parenchymal consolidation ACT 112: Negative or not required by law. Electronically signed by: Aden Sherman M.D. 10/09/2019 12:50 PM
[2019-10-09 12:55] LABS: Alanine Aminotransferase 23 U/L (12-78); Albumin Level 3.6 gm/dl (3.4-5.0); Aspartate Aminotransferase 11 U/L (15-37); BUN Creatinine Ratio 29.1 (10-20); Blood Urea Nitrogen 17 mg/dl (7-18); Calcium 8.9 mg/dl (8.5-10.1); Carbon Dioxide 39 mmol/L (21-32); Chloride 94 mmol/L (98-107); Est GFR (African American) 103.3; Est GFR (Non-African American) 89.2; Glucose 163 mg/dl (70-99); Magnesium 2.1 mg/dl (1.8-2.4); Potassium 4.4 mmol/L (3.5-5.1); Sodium 134 mmol/L (136-145)
[2019-10-09 13:04] LABS: Albumin Globulin Ratio 1.1 (0.9-2); Alkaline Phosphatase 74 U/L (45-117); Bilirubin,Total 0.4 mg/dl (0.2-1); Globulin 3.3 gm/dl (2.5-4.0); Total Protein 6.9 gm/dl (6.4-8.2); Troponin I 0.084 ng/ml (0-0.045)
--- NOTE | 2019-10-09 13:54 | Emergency Department Note ---
Entered by Nabil Ward acting as a scribe for History of Present Illness General Chief complaint: Respiratory Problems Stated complaint: TROUBLE BREATHING Time Seen by Provider: 10/09/19 12:05 Source: patient Limitations: no limitations History of Present Illness Onset (ago): day(s) (couple days) Location: chest Pain Consistency: + other (worsening) Maximum Pain Intensity: 3 Quality: + constant Relieved By: + other (increasing oxygen) Associated symptoms: + denies other symptoms (swelling in legs, congestion) and + other (chest tightness); no cough Treatments prior to arrival: other (increased oxygen) The patient is a 74 year old female who presents to the Emergency Room with complaints of worsening and constant respiratory problems starting a couple days ago. The patient states she has lung cancer. She notes she usually wears 2.5 L oxygen at home. She states her O2 sat was in the 55% range when the home health nurse saw her today. She states the home health nurse increased her oxygen, but the patient notes her O2 sat did not increase right away, but notes she felt better on the way to the hospital. The patient states she has some tightness in her chest. The patient denies any increased cough, congestion, and swelling in her legs. She notes she has an albuterol inhaler that she is supposed to use every 4 hours, but notes she usually uses it twice a day. She states she lives with her . She states she has a runny nose but notes that is not unusual. She states Dr. Ward is her oncologist and Dr. Hester is her PCP. Home Medications Home Medications Medication Instructions Recorded Confirmed Type Spiriva Respimat 2 puff INHALATION QAM 06/29/18 10/09/19 History Symbicort 2 puff INHALATION BID 06/29/18 10/09/19 History aspirin [Aspir-81] 81 mg PO QPM 06/29/18 10/09/19 History cranberry 8,400 mg PO QAM 06/29/18 10/09/19 History zinc 50 mg PO QAM 06/29/18 10/09/19 History Oxygen Home #1 ea 05/01/19 09/29/19 History hydrocortisone 2.5 % topical cream 1 appln TOPICAL BID PRN #1 gm 05/01/19 History levalbuterol HCl 0.63 mg/3 mL 0.63 mg INHALATION Q4H #15 ml 05/01/19 10/09/19 History solution for nebulization prednisone 5 mg tablet 5 mg PO QAM #30 tab 05/10/19 10/09/19 Rx citalopram 20 mg tablet 20 mg PO QAM #30 tab 05/19/19 10/09/19 Rx cyanocobalamin (vitamin B-12) 1,000 mcg PO DAILY #30 cap 09/12/19 10/09/19 Rx ferrous sulfate 325 mg PO DAILY #30 tab 09/12/19 10/09/19 Rx fluticasone propionate 50 1 sprays INTNAS DAILY PRN #9.9 ml 09/15/19 10/09/19 Rx mcg/actuation nasal spray,suspension albuterol sulfate 90 mcg/actuation 2 puff INHALATION Q4H PRN #18 gm 09/28/19 10/09/19 Rx aerosol inhaler metformin 500 mg tablet 500 mg PO DAILY tab 09/29/19 10/09/19 History alendronate 70 mg PO VALLE 10/09/19 10/09/19 History Allergies Allergy/AdvReac Type Severity Reaction Status Date / Time house dust mite Allergy Severe Verified 10/09/19 13:41 tree and shrub pollen Allergy Severe Verified 10/09/19 13:41 Sulfa (Sulfonamide Allergy Intermediate hives Verified 10/09/19 13:41 Antibiotics) Past Med/Surg History Medical History Acute exacerbation of chronic obstructive pulmonary disease (COPD) (Resolved) Acute non-ST segment elevation myocardial infarction (NSTEMI) following previous myocardial infarction (Inactive) Age related osteoporosis (Inactive) Anxiety Bursitis of ankle Classic migraine with aura (Inactive) Coronary artery disease (Inactive) Current use of steroid medication F/U DR WALLACE Diverticulosis (Inactive) Hearing loss, sensorineural (Inactive) History of colon polyps Iron deficiency anemia Normocytic anemia On home oxygen therapy 3/L/MIN NC Osteoarthritis Right middle lobe pulmonary nodule (Chronic) SOB (shortness of breath) Type II diabetes mellitus Vitamin B12 deficiency (dietary) anemia Weight loss, non-intentional Surgical History History of bunionectomy of right great toe History of cardiac cath 2014-NO STENTS NEEDED [facility] History of carpal tunnel release RIGHT History of cataract surgery Bilateral History of colonoscopy History of hysterectomy OVARIES REMAIN History of tonsillectomy Family History Mother , in her 70s Emphysema lung Father , 68yo Myocardial infarction Brother No family history of cancer Brother No family history of cancer Brother No family history of cancer Brother No family history of cancer Sister Alzheimer disease Sister No family history of cancer Daughter No problems noted. Daughter No problems noted. 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 [employer] Feels Safe at Home: Yes Safety Concerns: Feels Safe At This Time Smoking Status: Former smoker Tobacco Type: cigarettes ; Cigarettes Per Day: 3 ; Do You Dip or Chew Tobacco: No ; Second Hand Exposure: No ; Tobacco Cessation Education Requested by Patient: No Hx Alcohol Use: No Hx Substance Use: No Childhood Exposure to Second-Hand Smoke: Yes Other Diet Comment: regular caffeine: No during the past year weight has: decreased > 10 lbs Dental Care, Regularly: No Physical Activity Frequency: Does not Exercise Seatbelt Use: always Sunscreen Use: No Review of Systems See HPI for pertinent positives & negatives. and A total of 10 systems reviewed and were otherwise negative Physical Exam Vital Signs Vital Signs - 24 hr 10/09/19 11:41 10/09/19 12:07 10/09/19 12:11 Temperature 36.8 C Temperature Source Oral Pulse Rate 80 Pulse Rate [Right Radial] Pulse Rhythm [Right Radial] Pulse Strength [Right Radial] Respiratory Rate 28 H Respiratory Effort / Characteristics Pursed Lip Respiratory Depth Respiratory Pattern Blood Pressure 170/90 H Blood Pressure [Left Arm] Blood Pressure Mean 116 Blood Pressure Mean [Left Arm] Blood Pressure Position [Left Arm] Pulse Oximetry 91 98 95 Oxygen Delivery Method Nasal Cannula Nasal Cannula Nasal Cannula Oxygen Flow Rate 5 5 3 Sepsis Recent Fever Within 48 Hours No Sepsis Action Taken by Nursing No Action Required 10/09/19 12:24 10/09/19 12:43 10/09/19 13:40 Temperature Temperature Source Pulse Rate Pulse Rate [Right Radial] 76 67 Pulse Rhythm [Right Radial] Pulse Strength [Right Radial] Respiratory Rate 22 18 Respiratory Effort / Characteristics Non-Labored Spontaneous Respiratory Depth Respiratory Pattern Blood Pressure Blood Pressure [Left Arm] 125/72 Blood Pressure Mean Blood Pressure Mean [Left Arm] 89 Blood Pressure Position [Left Arm] Pulse Oximetry 96 92 100 Oxygen Delivery Method Nasal Cannula Nasal Cannula Nasal Cannula Oxygen Flow Rate 4 4 3 Sepsis Recent Fever Within 48 Hours Sepsis Action Taken by Nursing 10/09/19 14:36 10/09/19 15:43 10/09/19 15:55 Temperature 36.6 C Temperature Source Oral Pulse Rate Pulse Rate [Right Radial] 75 84 Pulse Rhythm [Right Radial] Regular Pulse Strength [Right Radial] Normal Respiratory Rate 18 20 Respiratory Effort / Characteristics Non-Labored Spontaneous Non-Labored Respiratory Depth Normal Respiratory Pattern Regular Blood Pressure Blood Pressure [Left Arm] 135/78 Blood Pressure Mean Blood Pressure Mean [Left Arm] 97 Blood Pressure Position [Left Arm] Sitting Pulse Oximetry 98 92 Oxygen Delivery Method Nasal Cannula Nasal Cannula Nasal Cannula Oxygen Flow Rate 4 3 4 Sepsis Recent Fever Within 48 Hours Sepsis Action Taken by Nursing GENERAL: Patient is in no acute distress. HEENT: No acute trauma, normocephalic atraumatic, mucous membranes moist, no nasal congestion, no scleral icterus. NECK: No stridor, no adenopathy, no meningismus, trachea is midline. LUNGS: Diminished breath sounds bilaterally. No respiratory distress. Wheezing bilaterally. Breath sounds are equal. HEART: Without murmurs gallops or rubs, regular rate and rhythm. ABDOMEN: Soft, nontender, bowel sounds positive, no hernias, no peritonitis. EXTREMITIES: No cyanosis or edema, full range of motion of all the joints without pain or difficulty, no signs for acute trauma. NEUROLOGIC: Oriented x 3, no acute motor or sensory deficits, no focal weakness. SKIN: No rash, no jaundice, no diaphoresis. Course Course 1207: The patient was evaluated in room B4B, and a complete history and physical examination were performed. 1358: I discussed the patient's case with Dr. [facility] Hospitalist. He will evaluate the patient for further management. 1405: I reevaluated the patient. She did her first breathing treatment. She sta flakito she feels better. I discussed the test results with her. She agrees with hospitalization. Administered Medications Albuterol (Duoneb) 3 ml NEB QIDR KERRIE Stop: 11/08/19 15:59 Last Admin: 10/09/19 19:49 Dose: 3 ml Documented by: [id number] Admin: 10/09/19 17:08 Dose: Not Given Documented by: [id number] Discontinued Medications Albuterol (Duoneb) 3 ml INH NOW STA Stop: 10/09/19 12:12 Last Admin: 10/09/19 12:43 Dose: 3 ml Documented by: [id number] Albuterol (Duoneb) 3 ml NEB NOW STA Stop: 10/09/19 14:07 Last Admin: 10/09/19 14:34 Dose: 3 ml Documented by: [id number] Methylprednisolone 60 mg/ (Syringe) 1.96 mls @ 1.5 mls/min IV NOW STA Stop: 10/09/19 12:12 Last Admin: 10/09/19 12:49 Dose: 1.5 mls/min Documented by: [id number] Methylprednisolone (Solumedrol) Confirm Administered Dose 125 mg .ROUTE .STK-MED ONE Stop: 10/09/19 12:45 Last Admin: 10/09/19 12:49 Dose: Not Given Documented by: [id number] Medical Decision Making Differential Diagnosis Differential Diagnosis includes but is not limited to CHF, pneumonia, bronchitis, exacerbation of COPD, anemia, influenza, flu-like illness, and electrolyte imbalance. Medical Records Attestation: I reviewed the patient's medical records. Home Medications Current Medication List: was personally reviewed by me Laboratory Data Attestation: I reviewed the patient's lab results. Result diagrams: 10/09/19 12:25 10/09/19 12:25 Lab Results 10/09/19 10/09/19 10/09/19 Range/Units 12:25 12:25 12:25 WBC 7.30 (4.8-10.8) K/uL RBC 3.86 L (4.2-5.4) M/uL Hgb 11.4 L (12.0-16.0) g/dL Hct 36.9 L (37-47) % MCV 95.6 (80-100) fL MCH 29.5 (25-34) pg MCHC 30.9 L (32-36) g/dL RDW Std Deviation 51.6 H (36.4-46.3) fL RDW Coeff of Jamison 14.6 H (11.5-14.5) % Plt Count 232 (130-400) K/uL MPV 10.5 H (7.4-10.4) fL Immature Gran % (Auto) 0.1 % Neut % (Auto) 76.9 % Lymph % (Auto) 11.9 % [place] % (Auto) 10.5 % Eos % (Auto) 0.3 % Baso % (Auto) 0.3 % Immature Gran # (Auto) 0.01 (0.00-0.02) K/uL Neut # (Auto) 5.61 (1.4-6.5) K/uL Lymph # (Auto) 0.87 L (1.2-3.4) K/uL [place] # (Auto) 0.77 H (0.11-0.59) K/uL Eos # (Auto) 0.02 (0-0.5) K/uL Baso # (Auto) 0.02 (0-0.2) K/uL PT 10.4 (9.0-12.0) Seconds INR 1.0 (0.9-1.1) APTT 27.1 (21.0-31.0) Seconds PTT Ratio 1.0 Sodium 134 L (136-145) mmol/L Potassium 4.4 (3.5-5.1) mmol/L Chloride 94 L (98-107) mmol/L Carbon Dioxide 39 H (21-32) mmol/L Anion Gap 1.0 L (3-11) BUN 17 (7-18) mg/dl Creatinine 0.60 (0.6-1.2) mg/dl Est Cr Clr Drug Dosing Not Reportable Est GFR ( Amer) 103.3 Est GFR (Non-Af Amer) 89.2 BUN/Creatinine Ratio 29.1 H (10-20) Glucose 163 H (70-99) mg/dl Calcium 8.9 (8.5-10.1) mg/dl Magnesium 2.1 (1.8-2.4) mg/dl Total Bilirubin 0.4 (0.2-1) mg/dl AST 11 L (15-37) U/L ALT 23 (12-78) U/L Alkaline Phosphatase 74 (45-117) U/L Troponin I 0.084 H* (0-0.045) ng/ml Total Protein 6.9 (6.4-8.2) gm/dl Albumin 3.6 (3.4-5.0) gm/dl Globulin 3.3 (2.5-4.0) gm/dl Albumin/Globulin Ratio 1.1 (0.9-2) Influenza Type A Ag (Neg) Influenza Type B Ag (Neg) 10/09/19 Range/Units 12:25 WBC (4.8-10.8) K/uL RBC (4.2-5.4) M/uL Hgb (12.0-16.0) g/dL Hct (37-47) % MCV (80-100) fL MCH (25-34) pg MCHC (32-36) g/dL RDW Std Deviation (36.4-46.3) fL RDW Coeff of Jamison (11.5-14.5) % Plt Count (130-400) K/uL MPV (7.4-10.4) fL Immature Gran % (Auto) % Neut % (Auto) % Lymph % (Auto) % [place] % (Auto) % Eos % (Auto) % Baso % (Auto) % Immature Gran # (Auto) (0.00-0.02) K/uL Neut # (Auto) (1.4-6.5) K/uL Lymph # (Auto) (1.2-3.4) K/uL [place] # (Auto) (0.11-0.59) K/uL Eos # (Auto) (0-0.5) K/uL Baso # (Auto) (0-0.2) K/uL PT (9.0-12.0) Seconds INR (0.9-1.1) APTT (21.0-31.0) Seconds PTT Ratio Sodium (136-145) mmol/L Potassium (3.5-5.1) mmol/L Chloride (98-107) mmol/L Carbon Dioxide (21-32) mmol/L Anion Gap (3-11) BUN (7-18) mg/dl Creatinine (0.6-1.2) mg/dl Est Cr Clr Drug Dosing Est GFR ( Amer) Est GFR (Non-Af Amer) BUN/Creatinine Ratio (10-20) Glucose (70-99) mg/dl Calcium (8.5-10.1) mg/dl Magnesium (1.8-2.4) mg/dl Total Bilirubin (0.2-1) mg/dl AST (15-37) U/L ALT (12-78) U/L Alkaline Phosphatase (45-117) U/L Troponin I (0-0.045) ng/ml Total Protein (6.4-8.2) gm/dl Albumin (3.4-5.0) gm/dl Globulin (2.5-4.0) gm/dl Albumin/Globulin Ratio (0.9-2) Influenza Type A Ag Neg for Influ A (Neg) Influenza Type B Ag Neg for Influ B (Neg) Imaging Data Radiologist's Impression: Radiology results as stated below per my review and the radiologist's interpretation: XR chest 1V portable CLINICAL HISTORY: Shortness of breath COMPARISON STUDY: 09/09/2019 FINDINGS: The patient is hyperinflated. There is a 19 mm right midlung zone nodule. There is no acute parenchymal consolidation. There is no failure. There are no pleural effusions.[ IMPRESSION: 1. Pulmonary emphysema 2. 19 mm right midlung zone pulmonary nodule 3. No evidence of acute parenchymal consolidation ACT 112: Negative or not required by law. Electronically signed by: Aden Sherman M.D. 10/09/2019 12:50 PM ECG Data Attestation: I personally reviewed and interpreted this ECG as follows: Indication: + SOB/dyspnea Rate (beats per minute): 82 Rhythm: + normal sinus ECG Intervals/blocks: + Normal QT-c (QT-c is 434) ECG ST segments: no ST elevation ECG Findings: no PVCs Blood Pressure Blood Pressure Findings: Elevated blood pressure Blood Pressure Disposition: further management by hospitalist [facility] Narrative There is no leukocytosis. No concerning anemia. Platelet count was normal. No coagulopathy. No significant electrolyte abnormality or kidney failure. No concerning liver enzyme elevation. Influenza testing was negative. Chest film did not show any obvious pneumonia, some chronic findings were seen. EKG shows a sinus rhythm, no acute ischemia. Cardiac enzyme testing x1 does show a troponin elevation, this could be consistent with a cardiac injury or possibly mismatch. On exam, the patient had diminished breath sounds with wheezing. The patient was maintained on a higher level of O2 supplementation. She received a DuoNeb, a second DuoNeb was given. She was given IV Solu-Medrol. The patient does feel somewhat improved since the above treatment. She would benefit from a hospital stay. She is having a flare of COPD. She has been short of breath, she was hypoxic. She now has an elevated troponin. Further care and work-up is warranted. I spoke to the patient and nurse outreach case manager. The on-call hospitalist was consulted. Impression & Plan Hypoxia, COPD exacerbation, SOB (shortness of breath), Elevated troponin level Discharge Plan Visit Data *Final* Discharge Date/Time: 10/09/19 15:43 Chief Complaint: Respiratory Problems Stated Complaint: TROUBLE BREATHING ED Provider: Evangelist Selby Discharge Problem: Hypoxia, COPD exacerbation, SOB (shortness of breath), Elevated troponin level Patient Disposition: Admitted As Inpatient Discharge Instructions Interventions: ED Discharge Assessment Last Done: 10/09/19 15:43 The scribe's documentation has been prepared under my direction and personally reviewed by me in its entirety. I confirm that the note above accurately reflects all work, treatment, procedures, and medical decision making performed by me.
[2019-10-09] MEDS ORDERED: ALBUT/IPRATROP 3MG/0.5MG NEB 3 ML VIAL NEB STA (14:06)
[2019-10-09] MEDS ORDERED: HYDROCORTISONE 2.5% CR 30 GM TUBE EXT PRN (16:00)
[2019-10-09] MEDS ORDERED: POLYETHYLENE (MIRALAX) 17 GM PACK PO PRN (16:00)
[2019-10-09] MEDS ORDERED: MAGNESIUM HYDROXIDE SUSP 30 ML UDC PO PRN (16:00)
[2019-10-09] MEDS ORDERED: FLUTICASONE PROPIONATE NA SPR 16 GM BTL PRN (16:00)
--- NOTE | 2019-10-09 16:14 | Electrocardiogram Report ---
Test Reason : Blood Pressure : / mmHG Vent. Rate : 082 BPM Atrial Rate : 082 BPM P-R Int : 142 ms QRS Dur : 094 ms QT Int : 372 ms P-R-T Axes : 079 005 064 degrees QTc Int : 434 ms Normal sinus rhythm Biatrial enlargement Abnormal ECG When compared with ECG of 09-SEP-2019 12:48, Premature supraventricular complexes are no longer Present Criteria for Septal infarct no longer present Confirmed by Jevon Urbano ([id number]) on 10/09/2019 4:14:22 PM Referred By: REFERRED SELF Confirmed By:Jevon Urbano
[2019-10-09] MEDS: ALBUT/IPRATROP 3MG/0.5MG NEB 3 ML VIAL NEB SCH ×2 (17:08→19:49)
--- NOTE | 2019-10-09 17:24 | History & Physical Report ---
Date of Service October 09, 2019 Assessment & Plan (1) COPD exacerbation: Continue Solumedrol 40mg IV BID however suspect this can be weaned to prednisone tomorrow. Duonebs QID + PRN Continue her maintenance inhalers: Symbicort + Spiriva No PFTs available on [employer]. (2) Acute on chronic respiratory failure with hypoxia and hypercapnia: Aim O2 sats > 90%. 2L O2 at baseline. Unclear cause of sudden decrease down to 54% if accurate value but possible mucus plugging. She appears to have rebounded very quickly. (3) Elevated troponin level: No chest pain to suggest ACS. No new concerning ischemic changes on EKG. Will repeat level with AM labs to make sure not up trending but suspected due to demand-ischemia. (4) Type II diabetes mellitus: HbA1C 6.0 Hold metformin. BSG ACHS. Insulin for correction factor. Expect some steroid induced hyperglycemia. (5) DVT prophylaxis: Suspect stay overnight therefore will just order SCDs. If staying beyond tomorrow would consider chemical prophylaxis History of Present Illness Chief Complaint: Shortness of breath, hypoxia Primary Care Provider: DO Ken Judd Kim is a 74 year old female with COPD who presented to the ER with acute hypoxia and shortness of breath. She has been getting progressively more short of breath over the last 2-3 days. No cough, fever or chills. No change in her environment or medication. She is unsure what started off this current episode but she notes usually has good and bad days. however was noted to be much more short of breath this morning and O2 sats 54% on her usual 2L. In the ER she was given 60mg Solu-medrol, and duoneb and she reports a big improvement with these interventions however she remains wheezy and is currently requiring 4L O2 from her baseline of 2L. CXR did not show any pneumonia. Allergies Allergy/AdvReac Type Severity Reaction Status Date / Time house dust mite Allergy Severe Verified 10/09/19 13:41 tree and shrub pollen Allergy Severe Verified 10/09/19 13:41 Sulfa (Sulfonamide Allergy Intermediate hives Verified 10/09/19 13:41 Antibiotics) Home Medications Home Medications Medication Instructions Recorded Confirmed Type Spiriva Respimat 2 puff INHALATION QAM 06/29/18 10/09/19 History Symbicort 2 puff INHALATION BID 06/29/18 10/09/19 History aspirin [Aspir-81] 81 mg PO QPM 06/29/18 10/09/19 History cranberry 8,400 mg PO QAM 06/29/18 10/09/19 History zinc 50 mg PO QAM 06/29/18 10/09/19 History Oxygen Home #1 ea 05/01/19 09/29/19 History hydrocortisone 2.5 % topical cream 1 appln TOPICAL BID PRN #1 gm 05/01/19 10/09/19 History levalbuterol HCl 0.63 mg/3 mL 0.63 mg INHALATION Q4H #15 ml 05/01/19 10/09/19 History solution for nebulization prednisone 5 mg tablet 5 mg PO QAM #30 tab 05/10/19 10/09/19 Rx citalopram 20 mg tablet 20 mg PO QAM #30 tab 05/19/19 10/09/19 Rx cyanocobalamin (vitamin B-12) 1,000 mcg PO DAILY #30 cap 09/12/19 10/09/19 Rx ferrous sulfate 325 mg PO DAILY #30 tab 09/12/19 10/09/19 Rx fluticasone propionate 50 1 sprays INTNAS DAILY PRN #9.9 ml 09/15/19 10/09/19 Rx mcg/actuation nasal spray,suspension albuterol sulfate 90 mcg/actuation 2 puff INHALATION Q4H PRN #18 gm 09/28/19 10/09/19 Rx aerosol inhaler metformin 500 mg tablet 500 mg PO DAILY tab 09/29/19 10/09/19 History alendronate 70 mg PO VALLE 10/09/19 10/09/19 History Past Med/Surg History Medical History Acute exacerbation of chronic obstructive pulmonary disease (COPD) (Resolved) Acute non-ST segment elevation myocardial infarction (NSTEMI) following previous myocardial infarction (Inactive) Age related osteoporosis (Inactive) Anxiety Bursitis of ankle Classic migraine with aura (Inactive) Coronary artery disease (Inactive) Current use of steroid medication F/U DR WALLACE Diverticulosis (Inactive) Hearing loss, sensorineural (Inactive) History of colon polyps Iron deficiency anemia Normocytic anemia On home oxygen therapy 3/L/MIN NC Osteoarthritis Right middle lobe pulmonary nodule (Chronic) SOB (shortness of breath) Type II diabetes mellitus Vitamin B12 deficiency (dietary) anemia Weight loss, non-intentional Surgical History History of bunionectomy of right great toe History of cardiac cath 2014-NO STENTS NEEDED [facility] History of carpal tunnel release RIGHT History of cataract surgery Bilateral History of colonoscopy History of hysterectomy OVARIES REMAIN History of tonsillectomy Family History Mother , in her 70s Emphysema lung Father , 68yo Myocardial infarction Brother No family history of cancer Brother No family history of cancer Brother No family history of cancer Brother No family history of cancer Sister Alzheimer disease Sister No family history of cancer Daughter No problems noted. Daughter No problems noted. 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 Feels Safe at Home: Yes Safety Concerns: Feels Safe At This Time Smoking Status: Former smoker Tobacco Type: cigarettes ; Cigarettes Per Day: 3 ; Do You Dip or Chew Tobacco: No ; Second Hand Exposure: No ; Tobacco Cessation Education Requested by Patient: No Hx Alcohol Use: No Hx Substance Use: No Childhood Exposure to Second-Hand Smoke: Yes Other Diet Comment: regular caffeine: No during the past year weight has: decreased > 10 lbs Dental Care, Regularly: No Physical Activity Frequency: Does not Exercise Seatbelt Use: always Sunscreen Use: No Review of Systems Review of Systems: All systems reviewed & are unremarkable except as noted in HPI & below Physical Exam Constitutional: + thin; + not well nourished and no acute distress Eyes: PERRL, conjunctivae normal, anicteric sclerae ENMT: external ear and nose normal, oropharynx normal Neck: trachea midline, no thyromegaly Respiratory: + labored breathing, + retractions, + uses accessory muscles and able to speak in complete sentences Auscultation: + diminished lung sounds (bibasal) and + wheezes (end expiratory throughout); no crackles, no rales and no rhonchi Cardiovascular: RRR, no murmur, no edema Gastrointestinal (Abdomen): normal bowel sounds, soft, nontender, no hepatosplenomegaly Musculoskeletal: no cyanosis or clubbing, extremities motor strength 5/5 Skin: no rashes, warm and dry Neurologic: moves all extremities and awake; no focal motor deficits and not confused Speech / Cognition: normal speech Motor/Sensory: no tremor Psychiatric: A+Ox3, euthymic affect Lymphatic: no cervical or axillary lymphadenopathy Results & Data Vital Signs (Past 12 Hours) Vital Signs Temp Pulse Pulse Resp BP BP Pulse Ox 10/09/19 14:36 75 18 98 10/09/19 13:40 67 18 125/72 100 10/09/19 12:43 76 22 92 10/09/19 12:24 96 10/09/19 12:11 95 10/09/19 12:07 98 10/09/19 11:41 36.8 C 80 28 H 170/90 H 91 Code Status & VTE Plan Code Status Cardiac arrest - she wishes nothing done Respiratory arrest/distress - ok to be intubated VTE Prophylaxis Plan VTE Prophylaxis will be ordered: No Reason for no VTE drug order: Treatment not indicated Reason for no VTE mechanical prophylaxis: Treatment not indicated PG Care Time/CCT Total # of Minutes Spent Total Time Spent with Patient: Total time spent is greater than 50% in coordination of care (as documented) at patient's floor/unit and/or counseling patient: (1) Type II diabetes mellitus Diabetes mellitus shelter insulin use: without shelter use Diabetes mellitus complication status: with circulatory complication Diabetes mellitus complication detail: with other circulatory complications Qualified Code(s): E11.59 - Type 2 diabetes mellitus with other circulatory complications
[2019-10-09] MEDS: ASPIRIN 81 MG ECTAB PO SCH (21:30)
[2019-10-09] MEDS: methylPREDNISolone 40 MG in SYRINGE 0 ML IV SCH (21:30)
[2019-10-09] MEDS: BUDESONIDE/FORMOTEROL FUMARATE 160/4.5 60 PUFFS/INHALER INH SCH (21:31)
[2019-10-10] MEDS ORDERED: CARBOHYDRATES FOR HYPOGLYCEMIA PO PRN (00:27)
[2019-10-10] MEDS ORDERED: DEXTROSE 50% 50 ML SYRINGE IV PRN (00:27)
[2019-10-10] MEDS ORDERED: GLUCAGON FOR INJ 1 MG VIAL SQ PRN (00:27)
[2019-10-10] MEDS ORDERED: GLUCOSE 40% GEL 15 GM TUBE PO PRN (00:27)
[2019-10-10] MEDS ORDERED: GLUCOSE 10 TABS/TUBE PO PRN (00:27)
[2019-10-10] MEDS: ALBUT/IPRATROP 3MG/0.5MG NEB 3 ML VIAL NEB SCH ×4 (05:42→19:22)
[2019-10-10 06:17] LABS: Hematocrit (blood only) 35.7 % (37-47); Hemoglobin 11.4 g/dL (12.0-16.0); Mean Corpuscular Hemoglobin 29.8 pg (25-34); Mean Corpuscular Hgb Conc 31.9 g/dL (32-36); Mean Corpuscular Volume 93.5 fL (80-100); Mean Platelet Volume 10.7 fL (7.4-10.4); Platelet Count 223 K/uL (130-400); RDW Coefficient of Variation 14.3 % (11.5-14.5); RDW Standard Deviation 49.1 fL (36.4-46.3); Red Blood Count 3.82 M/uL (4.2-5.4); White Blood Count 4.63 K/uL (4.8-10.8)
[2019-10-10 06:47] LABS: BUN Creatinine Ratio 25.4 (10-20); Calcium 8.9 mg/dl (8.5-10.1); Est GFR (African American) 103.9; Est GFR (Non-African American) 89.7; Potassium 4.4 mmol/L (3.5-5.1)
[2019-10-10 06:52] LABS: Troponin I 0.018 ng/ml (0-0.045)
[2019-10-10] MEDS: BUDESONIDE/FORMOTEROL FUMARATE 160/4.5 60 PUFFS/INHALER INH SCH ×2 (08:13→20:47)
[2019-10-10] MEDS: FERROUS SULFATE 325 MG TAB PO SCH (08:13)
[2019-10-10] MEDS: CITALOPRAM 20 MG TAB PO SCH (08:13)
[2019-10-10] MEDS: methylPREDNISolone 40 MG in SYRINGE 0 ML IV SCH (08:13)
[2019-10-10] MEDS: TIOTROPIUM BROMIDE 5 PUFF/90 MCG INH INH SCH (08:13)
[2019-10-10] MEDS: ZINC SULFATE 220 MG CAPSULE PO SCH (08:14)
[2019-10-10] MEDS: CYANOCOBALAMIN 500 MCG TABLET (VITAMIN B-12) PO SCH (08:14)
[2019-10-10] MEDS: SODIUM CHLORIDE 0.9% 1000ML 1,000 ML IV SCH (09:14)
[2019-10-10] MEDS: INSULIN ASPART 100 UNITS/ML 3 ML PEN SC SCH ×4 (09:20→20:48)
--- NOTE | 2019-10-10 15:35 | Hospitalist Progress Note ---
Date of Service October 10, 2019 Assessment & Plan (1) COPD exacerbation: * Last PFT 11/2017 with FEV 0.86L post bronchodilator (which was 37% predicted). On 5mg daily chronically * Transition to PO Prednisone this evening -- previously receiving solumedrol 40mg IV BID * Continue home symbicort, spiriva * Duonebs QID scheduled * Trilogy ordered for tonight, although patient states she would prefer not use it during admission -- will order and see if patient agree * COPD/Pneumonia clinic follow-up at discharge (2) Acute on chronic respiratory failure with hypoxia and hypercapnia: * Aim O2 sats > 90%. 2L O2 at baseline. As patient 99% on 2L this aft royal, placed order to titrate O2 to maintain sats 88-92% to prevent respiratory suppresion * Unclear cause of sudden decrease down to 54% if accurate value but possible mucus plugging. Appears to have rebounded very quickly. 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 No chest pain to suggest ACS. No new concerning ischemic changes on EKG. Repeat trop trending down, 0.018-- likely demand ischemia (5) Type II diabetes mellitus: * HbA1C 6.0 Hold metformin 500mg. * BSG ACHS. Insulin for correction factor. * BSGs acceptable -- elevated this afternoon at 242-- likely steroid induced * Continue to monitor (6) CAD (coronary atherosclerotic disease): * Per patient, hx [place] 2016 - cardiac catheterization, which was normal * Continue ASA 81mg * Patient not on stain (7) Anemia: * Hx Iron def anemia * Continue home iron supplementation * H/h stable - 11.4/35.7 (8) DVT prophylaxis: * Heparin SQ * SCDs Dispo: discharge home in AM Supervising Physician Co-Signing Physician Notes ELIZABETH Supervision Note: I did not personally see or examine the patient today, but I verified all gutierrez points of ELIZABETH García's assessment and plan with the following exceptions/additions: None Subjective Patient evaluated this morning. States her breathing is "80% of 60%" with 60% being her baseline feeling well at home. She states her oxygen saturation began to drop and she was becoming increasingly short of breath and called the ambulance. She states she was unaware that her saturation dropped to as low as 54% and that she required 4L in the emergency room. She had previously been admitted in August for similar issues and states she was started on Trilogy at home. She states she had not been using it secondary to not having a mask that is comfortable/fits, but states she has been using it over the past month on and off, but that she is typically only able to tolerate it for one hour at a time. She wears 2L O2 at baseline and has needed to increase to 2.5L on occasion. States she has occasional cough, occurs approximately every three days and is sometimes productive of stevens/white/clear sputum. Tremor noted-- patient states this has been there for several months. States she does have some anxiety regarding upcoming radiation, but also admits she has been taking daily prednisone since her last admission, 5mg PO daily. She states she takes her Spiriva and Symbicort as directed, and has been using her levalbuterol nebulizer 1-2x/day Q6. She states when she gets bad she should be more faithful about using these, and agrees she will utilize them on discharge. She states she is awaiting a call from the cancer center to begin stereotactic body radiation therapy for possible lung ca found in August, as patient not an ideal candidate for biopsy/complications of biopsy. She has had a 35lb weight loss over the past 6 months and has been drinking Ensure twice daily to help with her nutritional needs. Review of Systems Review of Systems: All systems reviewed & are unremarkable except as noted in HPI & below Constitutional: + weight loss (35 lb in 6 months); no fever, no chills and no anorexia Ear, Nose, Mouth, Throat: no sore throat and no dysphagia Respiratory: + cough and + dyspnea on exertion; no chest congestion and no hemoptysis Cardiovascular: no chest pain, no palpitations and no edema Gastrointestinal: no abdominal pain, no nausea, no vomiting, no constipation and no diarrhea/loose stools Genitourinary: no dysuria and no urinary frequency Integumentary: no rash and no lesions Psychiatric: + anxiety Physical Exam Constitutional: + thin, + cachectic and cooperative; no acute distress Eyes: + anicteric sclerae and PERRL Neck: trachea midline, no thyromegaly Respiratory: + retractions and able to speak in complete sentences; no respiratory distress and no cough Auscultation: + diminished lung sounds (diffusely) and + wheezes (end expiratory wheezes bilaterally) Cardiovascular: RRR, no murmur, no edema Gastrointestinal (Abdomen): normal bowel sounds, soft, nontender, no hepatosplenomegaly Musculoskeletal: Head/Neck/Chest: normocephalic and head atraumatic Skin: no rashes, warm and dry Neurologic: patellar DTR's 2+ bilat, sensation intact Psychiatric: Orientation: alert and oriented x 3 Affect: + anxious affect tremor of right hand noted Results & Data Vital Signs (Past 12 Hours) Vital Signs Temp Pulse Resp BP Pulse Ox 10/10/19 15:23 36.9 C 77 18 121/59 L 96 10/10/19 14:59 80 18 97 10/10/19 11:19 75 18 96 10/10/19 07:20 36.7 C 64 18 145/74 H 99 10/10/19 05:42 71 16 98 10/10/19 04:12 36.3 C L 61 18 136/75 100 Laboratory Results 10/10/19 10/10/19 10/10/19 Range/Units 11:27 07:45 05:56 WBC (4.8-10.8) K/uL RBC (4.2-5.4) M/uL Hgb (12.0-16.0) g/dL Hct (37-47) % MCV (80-100) fL MCH (25-34) pg MCHC (32-36) g/dL RDW Std Deviation (36.4-46.3) fL RDW Coeff of Jamison (11.5-14.5) % Plt Count (130-400) K/uL MPV (7.4-10.4) fL Sodium 132 L (136-145) mmol/L Potassium 4.4 (3.5-5.1) mmol/L Chloride 94 L (98-107) mmol/L Carbon Dioxide 36 H (21-32) mmol/L Anion Gap 2.0 L (3-11) BUN 15 (7-18) mg/dl Creatinine 0.59 L (0.6-1.2) mg/dl Est Cr Clr Drug Dosing 54.0 ml/min Est GFR ( Amer) 103.9 Est GFR (Non-Af Amer) 89.7 BUN/Creatinine Ratio 25.4 H (10-20) Glucose 139 H (70-99) mg/dl POC Glucose 242 H 122 H (70-99) mg/dl Calcium 8.9 (8.5-10.1) mg/dl Troponin I 0.018 (0-0.045) ng/ml 10/10/19 Range/Units 05:56 WBC 4.63 L (4.8-10.8) K/uL RBC 3.82 L (4.2-5.4) M/uL Hgb 11.4 L (12.0-16.0) g/dL Hct 35.7 L (37-47) % MCV 93.5 (80-100) fL MCH 29.8 (25-34) pg MCHC 31.9 L (32-36) g/dL RDW Std Deviation 49.1 H (36.4-46.3) fL RDW Coeff of Jamison 14.3 (11.5-14.5) % Plt Count 223 (130-400) K/uL MPV 10.7 H (7.4-10.4) fL Sodium (136-145) mmol/L Potassium (3.5-5.1) mmol/L Chloride (98-107) mmol/L Carbon Dioxide (21-32) mmol/L Anion Gap (3-11) BUN (7-18) mg/dl Creatinine (0.6-1.2) mg/dl Est Cr Clr Drug Dosing ml/min Est GFR ( Amer) Est GFR (Non-Af Amer) BUN/Creatinine Ratio (10-20) Glucose (70-99) mg/dl POC Glucose (70-99) mg/dl Calcium (8.5-10.1) mg/dl Troponin I (0-0.045) ng/ml PG Care Time/CCT Total # of Minutes Spent Total Time Spent with Patient: Total time spent is greater than 50% in coordination of care (as documented) at patient's floor/unit and/or counseling patient: (1) Type II diabetes mellitus Diabetes mellitus complication detail: with other circulatory complications Diabetes mellitus complication status: with circulatory complication Diabetes mellitus correction insulin use: without correction use Qualified Code(s): E11.59 - Type 2 diabetes mellitus with other circulatory complications
[2019-10-10] MEDS ORDERED: LORazepam 0.5 MG TAB PO PRN (15:59)
[2019-10-10] MEDS ORDERED: ENOXAPARIN INJ 30 MG/0.3 ML SYR SQ SCH (16:00)
[2019-10-10] MEDS ORDERED: LANTUS PER UNIT CHARGE SQ STA (17:01)
[2019-10-10] MEDS ORDERED: predniSONE 10 MG TABLET PO ONE (19:00)
[2019-10-10] MEDS: ASPIRIN 81 MG ECTAB PO SCH (20:47)
[2019-10-11] MEDS: SODIUM CHLORIDE 0.9% 1000ML 1,000 ML IV SCH (00:43)
[2019-10-11] MEDS: ALBUT/IPRATROP 3MG/0.5MG NEB 3 ML VIAL NEB SCH ×2 (06:55→11:06)
[2019-10-11 07:50] LABS: BUN Creatinine Ratio 25.9 (10-20); Calcium 8.6 mg/dl (8.5-10.1); Creatinine Clr Calc Pharmacy 59.2 ml/min; Est GFR (African American) 105.7; Est GFR (Non-African American) 91.2; Potassium 4.4 mmol/L (3.5-5.1)
[2019-10-11] MEDS: CITALOPRAM 20 MG TAB PO SCH (08:19)
[2019-10-11] MEDS: BUDESONIDE/FORMOTEROL FUMARATE 160/4.5 60 PUFFS/INHALER INH SCH (08:19)
[2019-10-11] MEDS: TIOTROPIUM BROMIDE 5 PUFF/90 MCG INH INH SCH (08:19)
[2019-10-11] MEDS: FERROUS SULFATE 325 MG TAB PO SCH (08:19)
[2019-10-11] MEDS: ZINC SULFATE 220 MG CAPSULE PO SCH (08:20)
[2019-10-11] MEDS: CYANOCOBALAMIN 500 MCG TABLET (VITAMIN B-12) PO SCH (08:20)
[2019-10-11] MEDS ORDERED: predniSONE 50 MG TAB PO SCH (09:00)
[2019-10-11] MEDS: INSULIN ASPART 100 UNITS/ML 3 ML PEN SC SCH ×2 (09:04→12:46)
[2019-10-11 11:30] VITALS: PULSE 98; TEMP 98.2; O2SAT 95
[2019-10-11 11:51] VITALS: BP 143/73
--- NOTE | 2019-10-11 13:24 | Discharge Summary ---
Date of Service October 11, 2019 Admission HPI Per Admitting Provider Ken Alvarez is a 74 year old female with COPD who presented to the ER with acute hypoxia and shortness of breath. She has been getting progressively more short of breath over the last 2-3 days. No cough, fever or chills. No change in her environment or medication. She is unsure what started off this current episode but she notes usually has good and bad days. however was noted to be much more short of breath this morning and O2 sats 54% on her usual 2L. In the ER she was given 60mg Solu-medrol, and duoneb and she reports a big improvement with these interventions however she remains wheezy and is currently requiring 4L O2 from her baseline of 2L. CXR did not show any pneumonia. Admission Exam Per Admitting Provider Constitutional: + thin; + not well nourished and no acute distress Eyes: PERRL, conjunctivae normal, anicteric sclerae ENMT: external ear and nose normal, oropharynx normal Neck: trachea midline, no thyromegaly Respiratory: + labored breathing, + retractions, + uses accessory muscles and able to speak in complete sentences Auscultation: + diminished lung sounds (bibasal) and + wheezes (end expiratory throughout); no crackles, no rales and no rhonchi Cardiovascular: RRR, no murmur, no edema Gastrointestinal (Abdomen): normal bowel sounds, soft, nontender, no hepatosplenomegaly Musculoskeletal: no cyanosis or clubbing, extremities motor strength 5/5 Skin: no rashes, warm and dry Neurologic: moves all extremities and awake; no focal motor deficits and not confused Speech / Cognition: normal speech Motor/Sensory: no tremor Psychiatric: A+Ox3, euthymic affect Lymphatic: no cervical or axillary lymphadenopathy Principal Diagnosis COPD Exacerbation Discharge Exam Constitutional + thin, + cachectic and cooperative; no acute distress Eyes + anicteric sclerae and PERRL Neck trachea midline, no thyromegaly Respiratory able to speak in complete sentences; no respiratory distress and no cough Auscultation: + diminished lung sounds (diffusely) Cardiovascular RRR, no murmur, no edema Gastrointestinal (Abdomen) normal bowel sounds, soft, nontender, no hepatosplenomegaly Musculoskeletal Head/Neck/Chest: normocephalic and head atraumatic Skin no rashes, warm and dry Neurologic patellar DTR's 2+ bilat, sensation intact Psychiatric Orientation: alert and oriented x 3 Discharge Data Allergies Allergy/AdvReac Type Severity Reaction Status Date / Time house dust mite Allergy Severe Verified 10/17/19 08:56 tree and shrub pollen Allergy Severe Verified 10/17/19 08:56 Sulfa (Sulfonamide Allergy Intermediate hives Verified 10/17/19 08:56 Antibiotics) Consultations 10/09/19 14:00 ED Decision to Admit Stat 10/09/19 16:00 Consult Case Management - Discharge Planning Routine 10/10/19 16:14 [facility] COPD/Pnx Program Referral Routine Ordered Studies CXR Hospital Course (1) COPD exacerbation: * Last PFT 11/2017 with FEV 0.86L post bronchodilator (which was 37% predicted). On 5mg daily chronically * improved with less dyspnea, less wheezing prior to discharge * Transitioned to PO Prednisone from solumedrol. Short taper, given patient to undergo radiation later this month and has to be off prednisone for XRT * Continued home symbicort, spiriva. Duonebs QID scheduled * Trilogy ordered although patient refused * COPD/Pneumonia clinic follow-up at discharge (2) Acute on chronic respiratory failure with hypoxia and hypercapnia: * Titrated O2 for O2 sats > 90%. Unclear cause of sudden decrease down to 54% if accurate value, but possible mucus plugging. Appears to have rebounded very quickly. 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 No chest pain to suggest ACS. No new concerning ischemic changes on EKG. Repeat trop trending down, 0.018-- likely demand ischemia (5) Type II diabetes mellitus: * HbA1C 6.0 Held metformin 500mg, to be resumed at discharge * BSG ACHS. Insulin for correction factor. Adjustments made to account for steroid induced hyperglcemia. (6) CAD (coronary atherosclerotic disease): * Per patient, hx [place] 2015 - cardiac catheterization, which was normal. Continue ASA 81mg. Not on statin. No chest pain/anginal symptoms. (7) Anemia: * Hx Iron def anemia. Continue home iron supplementation. H/h stable at discharge (8) DVT prophylaxis: * Heparin SQ and SCDs while inpatient Discharged home with son. Total Time Total Time Spent Total Time Spent (In Minutes): 60 Discharge Plan Discharge Items Patient Disposition: Home - Home Health Services Reason For Visit: COPD EXACERBATION Discharge Diagnosis: You have been hospitalized for an acute medical problem. During your stay at [facility], we have made an effort to correct the problem that brought you to the hospital while keeping you as comfortable as possible. Medications were used to bring your condition under control and your discharge instructions will include directions for any medications you should take after leaving the hospital. Please make sure you see your Primary Care Provider as part of your follow up plan. Condition on Discharge: Fair Activity: Resume your previous activity Non-emergency contact: Primary Care Provider and Dining Room Supervisor Call non-emergency contact if: you have any medication questions Follow-up/Referrals: Mary Hester DO [Primary Care Provider] - Jennifer Powers CRNP [Nurse Practitioner] - Diet: Heart Healthy Addtl Attending Provider Instructions: You have been hospitalized for a COPD flare. It was also found that your oxygen level was significant. For this reason, it is recommended that you utilize your Trilogy (breathing machine). This helps to maintain your oxygen saturation as well as blow off carbon dioxide. It is recommended that you keep your oxygen level between 88-92% and keep your oxygen at 2 liters. It is dangerous to increase oxygen rate and keep your saturations in the high 90s because it can further depress your breathing. Please continue using your Spiriva and Symbicort as ordered. Please utilize your levalbuterol nebulizer every four to six hours for the next week, and then utilize as needed. You may use your albuterol inhaler as needed. If you need any refills on these medications, please make sure to call and we will send a new prescription. You have been provided a course of prednisone during your stay. You are being discharged on a tapered course -- 40mg(2 tablets) on day 1 , 20mg (1 tablet) on days 2-4, 10mg (1/2 tablet) on days 5-7. You should then resume your daily 5mg dose when that is completed. It is recommended that you follow up with the COPD clinic within the week. The office number is . Please follow up with your primary care provider in the next 3-5 days. Keep all appointments as scheduled, and follow up with the cancer center regarding your radiation. Please return to the emergency department if you have any worsening shortness of breath, fever, or for any symptoms that are concerning for you. It has been a pleasure being a part of the care team providing for you during your hospital admission. Take care! Pending Studies at Discharge: No Stand-Alone Forms: My [facility] Medications and DC Order Prescriptions: New prednisone 20 mg tablet See Rx Instructions .ROUTE .COMPLEX Qty: 6 RF: 0 Continued metformin 500 mg tablet 500 mg PO DAILY RF: 0 citalopram 20 mg tablet 20 mg PO QAM Qty: 30 RF: 5 hydrocortisone 2.5 % cream 1 appln topical BID PRN (Reason: Itching) Qty: 1 RF: 0 levalbuterol HCl 0.63 mg/3 mL solution for nebulization 0.63 mg inhalation Q4H Qty: 15 RF: 0 (DME) Oxygen Home Liters Per Minute See Dose Instructions .ROUTE .MEDSUPPLY Qty: 1 RF: 0 fluticasone propionate [Flonase Allergy Relief] 50 mcg/actuation spray,suspension 1 sprays INTNAS DAILY PRN (Reason: sinus symptoms) Qty: 9.9 RF: 0 cyanocobalamin (vitamin B-12) 1,000 mcg capsule 1,000 mcg PO DAILY Qty: 30 RF: 0 ferrous sulfate 325 mg (65 mg iron) tablet 325 mg PO DAILY Qty: 30 RF: 0 alendronate 70 mg tablet 70 mg PO VALLE RF: 0 albuterol sulfate [Ventolin HFA] 90 mcg/actuation HFA aerosol inhaler 2 puff INHALATION Q4H PRN (Reason: shortness of breath or wheezing) Qty: 18 RF: 5 aspirin [Aspir-81] 81 mg Tablet,Delayed Release (Dr/Ec) 81 mg PO QPM RF: 0 zinc 50 mg Tablet 50 mg PO QAM RF: 0 cranberry 500 mg Capsule 8,400 mg PO QAM RF: 0 Symbicort 160-4.5 mcg/actuation Hfa Aerosol Inhaler 2 puff INHALATION BID RF: 0 Spiriva Respimat 2.5 mcg/actuation Mist 2 puff INHALATION QAM RF: 0 Discontinued prednisone 5 mg tablet 5 mg PO QAM Qty: 30 RF: 5 Discharge Orders: Discharge Order (Routine); Ordered 10/11/19 Ordered By: Tran Coates Admission Data Admit Date/Time: 10/09/19 15:55 Attending Provider: Tran Coates Admit Provider: Sukhwinder Wadsworth Primary Care Provider: Mary Hester Other Providers: Sukhwinder Wadsworth ; Jennifer Powers Other Interventions: Discharge Summary Assessment (RN) Last Done: 10/11/19 11:48 DC Date/Time DO NOT enter until pt leaves facility: 10/11/19 13:55 Supervising Physician Co-Signing Physician Notes PA Supervision Note: I personally saw and examined the patient. I verified all gutierrez points and agree with ELIZABETH García with the following exceptions and/or additions: Pt feelin gmuch better, back to baseline, oxygenating well. Continues to refuse ot use Trilogy vent. Understands the risks of hypercapnia and hypoxia. ANxious to get out of the hospital VSS Thin, NAD RRR no mgr Lungs with diminished sounds throughout, mild exp wheezes, no resp distress Abd soft NT ND Ext no edema Stable for dc to home
[2019-10-15] MEDS ORDERED: ALENDRONATE SODIUM 70 MG TAB PO SCH (06:30)
== END 2019-10-11 13:55 | disposition home health service (06) | DRG 190 ==
LOC: ED 11:40 → 4W 15:43 → INTOOBSV 15:55 → SUATTDRO 15:55

== ENCOUNTER 2020-01-06 09:36 | Observation (INO) ==
--- NOTE | 2020-01-06 09:55 | Emergency Department Note ---
Impression & Plan Closed fracture of left acetabulum, Bilateral sacral insufficiency fracture, Inferior pubic ramus fracture, Fracture of pubic ramus, Abrasion of leg, left, Abrasion of elbow, left, Fall, Bilateral fracture of pubic rami ED Provider Note Provider: Juan Chong MD DATE OF SERVICE: 01/06/2020 CHIEF COMPLAINT: Fall HISTORY OF PRESENT ILLNESS: Patient is a 74-year-old female history of diabetes, COPD on chronic oxygen, lung cancer status post radiation, CAD presenting today via ambulance after a fall. Patient states she tripped at home on her oxygen tubing overnight around 3 AM. Took quite some time for her to be able to manage to get to a phone to call for help. Patient states she fell on her left side and not strike her head. Complaint of left hip pain. States she sustained lisa tanner to the left elbow that did bleed some but that has now stopped. Per EMS was given 40 mcg of fentanyl and did encounter some nausea/hypoxia with this and was given Zofran prior to arrival. Transiently for EMS she was also on slightly increased oxygen, she is back to her normal 2 L of nasal cannula. Patient is awake and alert and complaining of left hip pain worse with movement. At a 3 out of 10 and constant otherwise. Patient denies any chest pain, shortness of breath, abdominal pain, neck pain, or headache. Patient denies any numbness or tingling in the lower extremities. She does have an endorse abrasion over the left knee without significant tenderness. She denies significant tenderness of the left elbow. Patient states she is not been able to ambulate since this occurred. REVIEW OF SYSTEMS: A total of 10 review of systems was obtained and negative except as stated above in the HPI. PAST MEDICAL HISTORY: As noted above MEDICATIONS: Reviewed her medication list from nursing including Spiriva, baby aspirin, home oxygen 2L SOCIAL HISTORY: Lives by herself at home on oxygen, is a smoker PHYSICAL EXAM: GENERAL: alert and oriented in no acute distress on stretcher Head: normocephalic and atraumatic EYES: No injection, discharge or icterus. PERRL NECK: Trachea midline. Supple. ENT: Mucous membranes pink and moist. LUNGS: Airway patent. No retractions. Breath sounds with faint scattered expiratory wheeze HEART: Regular rate and rhythm. No chest wall tenderness ABDOMEN: Soft and non-tender, without guarding or rebound. SKIN: Acyanotic, warm, dry, without rashes EXTREMITIES: Does have a abrasion overlying the left lateral elbow but no significant tenderness with palpation or ROM of the left upper extremity. Neurovascular intact of her extremity. The left lower extremities pain at the hip with ROM as well as a small abrasion in the proximal tibia. No bone exposed and nontender knee and lower leg. Neurovascular intact lower extremities. NEUROLOGICAL: No aphasia or slurred speech. Neurovascular intact in the extremities. EKG: Normal sinus rhythm 75 bpm. No PVCs. No acute ST segment elevation or depression. QTC of 437. In comparison to previous film from October 09 of this year, no significant changes. CONTINUOUS CARDIAC MONITORING: was ordered and showed a heart rate of 77 bpm in NSR Patient's hypertension was referred to the hospitalist PDMP was checked without noted issue. GCS 15. HOSPITAL COURSE: 0940 Patient was first seen and H&P performed. 1150 Patient reassessed and updated. Patient was not in any significant pain. Call to orthopedics was placed. 1208 discussed orthopedics. Updated patient's daughter. Patient was updated. She states she rolled over in bed and that this was painful. Patient declines additional narcotic pain medication at this time but states she is hungry. [address] [facility] [place]. Patient's laboratory studies and imaging reviewed. Differential includes Fracture, dislocation, contusion, intra-abdominal, pneumothorax, intrathoracic, intracranial, neurologic, compartment syndrome, rhabdomyolysis, as well as other pathologies. IMPRESSION/MEDICAL DECISION MAKING: Patient presents after mechanical fall without syncopal complaints. Traumatic evaluation was completed with imaging of the head and neck as well as imaging of the left femur and pelvis. Concern for possible left hip fracture. Neurovascular tach extremities. Abrasion over the left proximal lau as well as the left elbow without significant tenderness here I doubt fractures in these area. Transiently on increased oxygen while received narcotics prior to arrival but stable on home oxygen level here. Basic laboratory studies were completed given that she was on the floor for several hours including CK. Chest x-ray is obtained as well as EKG. EKG without acute changes and patient without compliant of CP or worsened SOB. The x-rays of the patient's pelvis and femur show no acute bony fracture or dislocation. Chest x-ray shows emphysematous lungs with right-sided lung nodule previously noted in the patient's history per my review of the film and also reviewing the radiology report. No signs of pneumothorax. Given the patient's fairly significant pain in her right hip and pelvic region with ROM of the left lower extremity CT of the abdomen pelvis and hip was obtained. Nonspecific leukocytosis of 13 noted. Similar anemia to previous is noted. Renal function is stable. Elevated carbon dioxide level secondary to her chronic respiratory issues. Does not seem altered and again seems chronic. No troponin elevation & no evidence of rhabdomyolysis. CT scan of the head, cervical spine without acute traumatic fracture although some likely chronic and/or degenerative changes in the cervical and upper thoracic image segments show mild superior endplate compression. Given the patient's continued pain I did complete again a CT of her pelvis and hip showing evidence of acute bilateral sacral insufficiency fracture with a mildly displaced inferior bilateral pubic rami fracture. Additional fracture through the right superior pubic ramus is noted. There is a subtle acute nondisplaced fracture of the anterior wall of the acetabulum. No evidence of a large hematoma but a small joint extrusion is noted. Discussed with orthopedics on-call who stated the patient to be nonweightbearing in the left lower extremity. Weightbearing on the right side as tolerated. Benign abdomen otherwise and hemodynamically stable. Discussed with patient and patient daughters via phone. Recommend admission at this time given her pain and difficulty with ambulating. Patient declined additional pain medicine at this time but is hungry. Updated on visitor policy. Patient declined Young placement while in the emergency department. DIAGNOSIS: Left anterior wall acetabular fracture, bilateral inferior pubic rami fracture, right superior pubic rami fracture, bilateral sacral insufficiency fractures, fall, abrasion left lau, abrasion left elbow DISPOSITION: Hospitalist will evaluate Patient was agreeable with this plan. Past Med/Surg History Medical History (Updated 01/06/20 @ 11:55 by Juan Chong M.D.) Acute exacerbation of chronic obstructive pulmonary disease (COPD) (Resolved) Acute non-ST segment elevation myocardial infarction (NSTEMI) following previous myocardial infarction (Inactive) Age related osteoporosis (Inactive) Anxiety Bursitis of ankle Classic migraine with aura (Inactive) Coronary artery disease (Inactive) Current use of steroid medication F/U DR WALLACE Diabetes mellitus, type 2 Diverticulosis (Inactive) Hearing loss, sensorineural (Inactive) History of colon polyps Iron deficiency anemia Normocytic anemia On home oxygen therapy 3/L/MIN NC Osteoarthritis Right middle lobe pulmonary nodule (Chronic) SOB (shortness of breath) Type II diabetes mellitus Vitamin B12 deficiency (dietary) anemia Weight loss, non-intentional Surgical History History of bunionectomy of right great toe History of cardiac cath 2014-NO STENTS NEEDED [facility] History of carpal tunnel release RIGHT History of cataract surgery Bilateral History of colonoscopy History of hysterectomy OVARIES REMAIN History of tonsillectomy Family History (Updated 11/07/19 @ 17:12 by Alexandria Britt) Mother , in her 70s Emphysema lung Father , 68yo Myocardial infarction Brother No family history of cancer Brother No family history of cancer Brother No family history of cancer Brother No family history of cancer Sister Alzheimer disease Sister No family history of cancer Daughter No problems noted. Daughter No problems noted. 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 Feels Safe at Home: Yes Safety Concerns: Feels Safe At This Time Smoking Status: Former smoker Tobacco Type: cigarettes ; Cigarettes Per Day: 3 ; Second Hand Exposure: No ; Hx Alcohol Use: No Hx Substance Use: No Childhood Exposure to Second-Hand Smoke: Yes Diet Comment: regular caffeine: No during the past year weight has: decreased > 10 lbs Dental Care, Regularly: No Physical Activity Frequency: Does not Exercise Seatbelt Use: always Sunscreen Use: No Allergies Allergies Allergy/AdvReac Type Severity Reaction Status Date / Time house dust mite Allergy Severe Verified 01/06/20 11:05 tree and shrub pollen Allergy Severe Verified 01/06/20 11:05 Sulfa (Sulfonamide Allergy Intermediate hives Verified 01/06/20 11:05 Antibiotics) Home Meds Home Medications Medication Instructions Recorded Confirmed Spiriva Respimat 2 puff INHALATION QAM 06/29/18 01/06/20 aspirin [Aspir-81] 81 mg PO HS 06/29/18 01/06/20 zinc 50 mg PO QAM 06/29/18 01/06/20 Oxygen Home #1 ea 05/01/19 11/07/19 levalbuterol HCl 0.63 mg/3 mL 0.63 mg INHALATION Q4H PRN #15 ml 05/01/19 01/06/20 solution for nebulization alendronate 70 mg PO VALLE 10/09/19 01/06/20 Cranberry 4200mg 4,200 mg PO QAM 01/06/20 01/06/20 cyanocobalamin (vitamin B-12) 1,000 mcg PO QAM 01/06/20 01/06/20 ibuprofen 200 mg PO Q6H PRN 01/06/20 01/06/20 prednisone 5 mg PO QAM 01/06/20 01/06/20 Previous Rx's Medication Instructions Recorded miscellaneous medical supply #1 ea 10/17/19 miscellaneous medical supply #1 ea 10/29/19 Wheelchair (Manual or Powered) #1 ea 11/10/19 miscellaneous medical supply See Rx Instructions MS .COMPLEX #1 11/10/19 ea fluticasone propionate 50 1 sprays INTNAS DAILY PRN #9.9 ml 11/23/19 mcg/actuation nasal spray,suspension metformin 500 mg tablet 500 mg PO BID #180 tab 12/12/19 albuterol sulfate 90 mcg/actuation 2 puff INHALATION Q4H PRN #18 gm 12/14/19 aerosol inhaler citalopram 20 mg tablet 20 mg PO QAM #90 tab 12/25/19 blood sugar diagnostic #100 ea 01/01/20 blood-glucose meter #1 ea 01/01/20 budesonide-formoterol HFA 160 2 puff INHALATION BID #10.2 gm 01/02/20 mcg-4.5 mcg/actuation aerosol inhaler Results & Data (ED) Vital Signs Vital Signs - 24 hr 01/06/20 09:46 01/06/20 11:25 01/06/20 13:00 Temperature 36.8 C Temperature Source Oral Pulse Rate 74 Pulse Rate [Apical] 77 83 Respiratory Rate 18 18 20 Blood Pressure 157/73 H Blood Pressure [Left Arm] 135/63 136/70 Blood Pressure Mean 101 Blood Pressure Mean [Left Arm] 87 92 Pulse Oximetry 99 100 98 Oxygen Delivery Method Nasal Cannula Nasal Cannula Nasal Cannula Oxygen Flow Rate 2 2 2 Sepsis Recent Fever Within 48 Hours No Sepsis New/Unexplained Change in Mental Status No Sepsis Action Taken by Nursing No Action Required Laboratory Data Result diagrams: 01/06/20 10:10 01/06/20 10:10 Lab Results 01/06/20 01/06/20 01/06/20 Range/Units 10:10 10:10 10:10 WBC 13.17 H (4.8-10.8) K/uL RBC 3.47 L (4.2-5.4) M/uL Hgb 10.6 L (12.0-16.0) g/dL Hct 34.1 L (37-47) % MCV 98.3 (80-100) fL MCH 30.5 (25-34) pg MCHC 31.1 L (32-36) g/dL RDW Std Deviation 46.5 H (36.4-46.3) fL RDW Coeff of Jamison 13.0 (11.5-14.5) % Plt Count 195 (130-400) K/uL MPV 10.5 H (7.4-10.4) fL Immature Gran % (Auto) 0.3 % Neut % (Auto) 86.1 % Lymph % (Auto) 6.8 % Dawes % (Auto) 6.2 % Eos % (Auto) 0.5 % Baso % (Auto) 0.1 % Immature Gran # (Auto) 0.04 H (0.00-0.02) K/uL Neut # (Auto) 11.34 H (1.4-6.5) K/uL Lymph # (Auto) 0.90 L (1.2-3.4) K/uL Dawes # (Auto) 0.82 H (0.11-0.59) K/uL Eos # (Auto) 0.06 (0-0.5) K/uL Baso # (Auto) 0.01 (0-0.2) K/uL PT 11.1 (9.0-12.0) Seconds INR 1.1 (0.9-1.1) Sodium 134 L (136-145) mmol/L Potassium 4.0 (3.5-5.1) mmol/L Chloride 93 L (98-107) mmol/L Carbon Dioxide 41 H* (21-32) mmol/L Anion Gap 1.0 L (3-11) BUN 18 (7-18) mg/dl Creatinine 0.40 L (0.6-1.2) mg/dl Est Cr Clr Drug Dosing 112.6 ml/min Est GFR ( Amer) 118.1 Est GFR (Non-Af Amer) 101.9 BUN/Creatinine Ratio 45.0 H (10-20) Glucose 196 H (70-99) mg/dl Calcium 8.9 (8.5-10.1) mg/dl Total Creatine Kinase 51 (26-192) U/L Troponin I < 0.015 (0-0.045) ng/ml Administered Medications Discontinued Medications Acetaminophen (Ofirmev) 1,000 mg in 100 mls @ 400 mls/hr IV NOW STA Stop: 01/06/20 13:02 Last Infusion: 01/06/20 13:21 Dose: 0 mls/hr Documented by: [id number] Admin: 01/06/20 13:06 Dose: 400 mls/hr Documented by: [id number] Discharge Plan Visit Data Chief Complaint: Fall ED Provider: Juan Chong Discharge Problem: Closed fracture of left acetabulum, Bilateral sacral insufficiency fracture, Inferior pubic ramus fracture, Fracture of pubic ramus, Abrasion of leg, left, Abrasion of elbow, left, Fall, Bilateral fracture of pubic rami Patient Disposition: Being Evaluated by Hospitalist Discharge Instructions Interventions: ED Discharge Assessment Last Done: 01/06/20 13:59 Discharge Problem: Closed fracture of left acetabulum Qualifiers: Encounter type: initial encounter Sublocation of acetabulum: anterior wall Fracture alignment: nondisplaced Qualified Code(s): S32.415A - Nondisplaced fracture of anterior wall of left acetabulum, initial encounter for closed fracture Bilateral sacral insufficiency fracture Qualifiers: Encounter type: initial encounter Qualified Code(s): M84.48XA - Pathological fracture, other site, initial encounter for fracture Inferior pubic ramus fracture Qualifiers: Encounter type: initial encounter Fracture type: closed Laterality: unspecified laterality Qualified Code(s): S32.599A - Other specified fracture of unspecified pubis, initial encounter for closed fracture Fracture of pubic ramus Qualifiers: Encounter type: initial encounter Fracture type: closed Laterality: right Qualified Code(s): S32.591A - Other specified fracture of right pubis, initial encounter for closed fracture Abrasion of leg, left Qualifiers: Encounter type: initial encounter Qualified Code(s): S80.812A - Abrasion, left lower leg, initial encounter Abrasion of elbow, left Qualifiers: Encounter type: initial encounter Qualified Code(s): S50.312A - Abrasion of left elbow, initial encounter Fall Qualifiers: Encounter type: initial encounter Qualified Code(s): W19.XXXA - Unspecified fall, initial encounter Bilateral fracture of pubic rami Qualifiers: Encounter type: initial encounter Fracture type: closed Qualified Code(s): S32.591A - Other specified fracture of right pubis, initial encounter for closed fracture
--- NOTE | 2020-01-06 10:12 | XRay Report ---
XR pelvis 1-2V routine, XR femur LT 2V routine HISTORY: 74 years-old Female fall, L pain acute pelvic and left femur pain status post fall COMPARISON: PET CT 09/18/2019 TECHNIQUE: AP view the pelvis with 2 views of the left femur FINDINGS: PELVIS: Demineralized appearance of the bones. Mild osteoarthritis of the femoral acetabular joints. No acute fracture, dislocation or avascular necrosis. Soft tissues are unremarkable. FEMUR: No acute fracture, dislocation or avascular necrosis. Arterial calcifications are noted. Mild soft ti ssue swelling surrounds the knee. Soft tissues are unremarkable. IMPRESSION: No acute fracture or dislocation. ACT 112: Negative or not required by law. The above report was generated using voice recognition software. It may contain grammatical, syntax o r spelling errors. Electronically signed by: Miguel Palmer M.D. 01/06/2020 10:11 AM
--- NOTE | 2020-01-06 10:17 | XRay Report ---
XR chest 1V portable HISTORY: 74 years-old Female fall, copd acute fall. COPD COMPARISON: Chest radiograph 10/09/2019, PET CT 09/18/2019 TECHNIQUE: Portable AP view of the chest FINDINGS: Cardiomediastinal and hilar silhouettes are unchanged. Calcified plaque of the thoracic aortic arch. Severe emphysema with chronic fibrotic changes. The previously noted 1.6 cm solid nodule of the right middle lobe is better seen on comparison PET/CT. Skin folds project over the left greater than right hemithoraces. Mild convex right curvature of the midthoracic spine. Carotid calcifications are noted . I lateral shoulder rotator cuff calcific tendinosis. Degenerative changes of the shoulders and spin e. IMPRESSION: No acute process. ACT 112: Negative or not required by law. The above report was generated using voice recognition software. It may contain grammatical, syntax o r spelling errors. Electronically signed by: Miguel Palmer M.D. 01/06/2020 10:15 AM
[2020-01-06 10:23] LABS: Basophils # (auto) 0.01 K/uL (0-0.2); Basophils % (auto) 0.1 %; Eosinophils # (auto) 0.06 K/uL (0-0.5); Eosinophils % (auto) 0.5 %; Hematocrit (blood only) 34.1 % (37-47); Hemoglobin 10.6 g/dL (12.0-16.0); Immature Granulocytes # (auto) 0.04 K/uL (0.00-0.02); Immature Granulocytes % (auto) 0.3 %; Lymphocytes % (auto) 6.8 %; Mean Corpuscular Hemoglobin 30.5 pg (25-34); Mean Corpuscular Hgb Conc 31.1 g/dL (32-36); Mean Corpuscular Volume 98.3 fL (80-100); Mean Platelet Volume 10.5 fL (7.4-10.4); Monocytes # (auto) 0.82 K/uL (0.11-0.59); Monocytes % (auto) 6.2 %; Neutrophils # (auto) 11.34 K/uL (1.4-6.5); Neutrophils % (auto) 86.1 %; Platelet Count 195 K/uL (130-400); RDW Standard Deviation 46.5 fL (36.4-46.3); Red Blood Count 3.47 M/uL (4.2-5.4); White Blood Count 13.17 K/uL (4.8-10.8)
[2020-01-06 10:30] LABS: INR 1.1 (0.9-1.1); Prothrombin Time 11.1 Seconds (9.0-12.0)
--- NOTE | 2020-01-06 10:48 | CT Scan Report ---
CT head/brain wo con CLINICAL HISTORY: 74 years-old Female with fall. Acute head injury status post fall TECHNIQUE: Multiple axial CT images of the head were obtained without contrast. A dose lowering tech nique was utilized adhering to the principles of ALARA. COMPARISON: CT cervical spine of same day, head CT 09/09/2019 FINDINGS: No acute intracranial hemorrhage, midline shift, intracranial mass, hydrocephalus, territorial ischem ia or abnormal extra-axial collection. Minimal patchy white matter hypodensities suggest chronic micr ovascular ischemic disease. The calvarium is intact. Prior bilateral lens replacement. Right dulce maria bullosa. Leftward bowing and spurring of the nasal septum. The paranasal sinuses, mastoid air cells, and middle ear cavities are c lear. IMPRESSION: No acute intracranial abnormality or calvarial fracture. ACT 112: Negative or not required by law. The above report was generated using voice recognition software. It may contain grammatical, syntax o r spelling errors. Electronically signed by: Miguel Palmer M.D. 01/06/2020 10:47 AM
--- NOTE | 2020-01-06 10:54 | CT Scan Report ---
CT cervical spine wo con CT DOSE: 1212.85 mGy.cm CLINICAL HISTORY: 74 years-old Female with fall. Acute head and neck injury status post fall COMPARISON: Head CT of same day TECHNIQUE: Multiple axial CT images of the cervical spine were obtained without contrast. A dose low ering technique was utilized adhering to the principles of ALARA. FINDINGS: Demineralized appearance of the bones. Severe degenerative changes at the C1-C2 articulation. There i s mild superior endplate compression of less than 20% noted at C3-T2 is likely chronic and/or degener ative. There is severe multilevel facet arthrosis. No definitive acute fracture or subluxation. Evalu ation of the central canal and neuroforamina is better evaluated by MRI. Multilevel foraminal narrowi ng is noted without definite high-grade central canal stenosis. Mild convex left curvature. Extensive calcification of the bilateral carotid bulbs. Advanced emphysema with chronic fibrotic changes of th e lung apices. Secretions are noted within the airway. IMPRESSION: 1. No definite acute fracture or subluxation. 2. Mild superior endplate compression of less than 20% is noted throughout the cervical and imaged th oracic segments, likely chronic and/or degenerative in nature. 3. Degenerative changes as above. ACT 112: Negative or not required by law. The above report was generated using voice recognition software. It may contain grammatical, syntax o r spelling errors. Electronically signed by: Miguel Palmer M.D. 01/06/2020 10:52 AM
[2020-01-06 11:04] LABS: Blood Urea Nitrogen 18 mg/dl (7-18); Calcium 8.9 mg/dl (8.5-10.1); Carbon Dioxide 41 mmol/L (21-32); Chloride 93 mmol/L (98-107); Creatine Kinase 51 U/L (26-192); Creatinine Clr Calc Pharmacy 112.6 ml/min; Est GFR (African American) 118.1; Est GFR (Non-African American) 101.9; Glucose 196 mg/dl (70-99); Sodium 134 mmol/L (136-145); Troponin I < 0.015 ng/ml (0-0.045)
--- NOTE | 2020-01-06 11:05 | CT Scan Report ---
CT hip LT wo con HISTORY: 74 years-old Female fall, pain acute left hip pain status post fall COMPARISON: CT abdomen and pelvis, radiographs of the pelvis and left femur of same day. TECHNIQUE: Multiple axial CT images of the left hip were obtained without use of IV contrast. A dose lowering technique was used consistent with the principals of ELI. FINDINGS: Demineralized appearance of the bones. There is a partially imaged acute left-sided sacral insufficie ncy fracture. Subtle acute nondisplaced fracture involves the anterior wall of the acetabulum, image 155 series 8, image 19 series 800 and image 21 series 8 L1. Acute mildly displaced fracture of the le ft inferior pubic ramus, image 224 series 8. Moderate left hip osteoarthritis. No acute fracture of t he left femur. No dislocation or avascular necrosis. Colonic diverticulosis. Please refer to CT abdomen and pelvis study for further details of the intrap elvic findings. No large intramuscular hematoma of the left thigh. Small left hip joint effusion. Art erial calcifications. IMPRESSION: 1. Acute left-sided sacral insufficiency fracture. 2. Subtle acute nondisplaced fracture involves the anterior wall of the left acetabulum. 3. Moderate left hip osteoarthritis without dislocation or acute left femoral fracture identified. 4. Acute mildly displaced fracture of the left inferior pubic ramus. 5. Please refer to CT abdomen and pelvis study of same day for additional findings. ACT 112: Negative or not required by law. The above report was generated using voice recognition software. It may contain grammatical, syntax o r spelling errors. Electronically signed by: Miguel Palmer M.D. 01/06/2020 11:04 AM
--- NOTE | 2020-01-06 11:19 | CT Scan Report ---
ABDOMEN AND PELVIS CT WITHOUT CONTRAST HISTORY: Acute pelvic pain status post fall fall, L pelvic /hip pain TECHNIQUE: Multiaxial CT images of the abdomen and pelvis were performed without contrast. A dose lo wering technique was utilized adhering to the principles of ALARA. COMPARISON STUDY: CT left hip of same day, PET CT 09/18/2019. FINDINGS: Advanced emphysema. The previously noted suspicious nodule of the right middle lobe is not imaged. Mo derate bronchial wall thickening suggests bronchitis. Mild dependent bibasilar atelectasis. No pneuma tosis or pneumoperitoneum. Imaged inferior cardiac chambers are unremarkable. Coronary artery calcifi cations. Limited evaluation of the solid abdominal organs without the use of IV contrast. Within the limitations of the study the spleen, pancreas and right adrenal gland are unremarkable. Pancreatic du ct measures the upper limits of normal at 3 mm. Moderate gallbladder distention without cholelithiasi s identified. There is mild prominence of the extrahepatic biliary tree. Left adrenal gland thickenin g suggests hyperplasia. Unremarkable appearance of the liver. Ill-defined 4 mm hyperdense focus of the superior pole left kidney is unchanged and may reflect a com plex cyst. Unchanged cyst of the inferior pole right kidney. 5 mm nonobstructing calculus of the infe rior pole right kidney is also present. Mild nonspecific right perinephric stranding. No definite ure teral calculi. Unremarkable appearance of the urinary bladder with cystocele. Pelvic floor relaxation with hysterectomy. Extensive calcified plaque of the abdominal aorta with fusiform aneurysmal infrar enal dilation measuring up to 3.4 x 2.7 cm. No definite adenopathy. Nonspecific wall thickening of the distal esophagus. No bowel obstruction or bowel wall thickening. M oderate fecal retention. Colonic diverticulosis without acute diverticulitis. Nonvisualization of the appendix. Mild generalized body wall edema. Demineralized appearance of the bones. Acute mildly disp laced fracture of the left inferior pubic ramus. Mild cortical irregularity of the right inferior pub ic ramus equivocal for subtle acute nondisplaced fracture on image 396 of series 7. Acute mildly disp laced fracture of the right superior pubic ramus extending into the right pubic body on image 380 ser ies 7. No diastases of the pubic symphysis. Subtle acute nondisplaced fracture of the anterior wall o f the left acetabulum. Subtle acute bilateral sacral insufficiency fractures. The imaged bilateral fe latif appear intact. No acute displaced rib fracture identified. No acute compression deformity. IMPRESSION: 1. Limited exam without the use of IV contrast. No acute intra-abdominal or intrapelvic abnormality i dentified. 2. Multiple acute pelvic fractures include bilateral sacral insufficiency fractures. Acute fractures of the bilateral inferior pubic rami, acute mildly displaced fracture of the right superior pubic giuliano us extending into the right pubic body and acute nondisplaced fracture of the left anterior wall acet abulum. 3. Fusiform dilation of the abdominal aorta, 3.4 x 2.7 cm. 4. Nonobstructing right nephrolithiasis. 5. Advanced emphysema. 6. Additional findings as above. ACT 112: Negative or not required by law. The above report was generated using voice recognition software. It may contain grammatical, syntax o r spelling errors. Electronically signed by: Miguel Palmer M.D. 01/06/2020 11:18 AM
[2020-01-06] MEDS ORDERED: ACETAMINOPHEN 1,000 MG/100 ML VIAL IV STA (12:48)
--- NOTE | 2020-01-06 13:32 | History & Physical Report ---
Date of Service January 06, 2020 Assessment & Plan (1) Fall: This pt is a 74 yo female with a h/o COPD on chronic O2 2LNC and BiPAP qhs, osteoporosis,DMII, CAD, AAA, nephrolithiasis, depression, lung CA s/p XRT, who presents after sustaining a mechanical fall with left hip pain. She reports she caught her toes on her O2 cord and tripped, landing on her left side. She reports crawling to her couch and then couldn't move further. SHe waited a few hours and then called her children when she knew they would be waking up for the day who then called an ambulance. She has abrasions on her left elbow and knee and pain in the left hip. Denies LOC or head trauma. No chest pain or SOB, no abd pain. She was given Fentanyl by EMS on the way in to the hospital which caused significant nausea. In the ER, she had multiple imaging studies and was found to have bilateral pelvic and sacral insufficiency fractures, and a left hip acetabular fracture. Her WBC count was mildly elevated at 13 on arrival and her HCO3 is chronically elevated, however she denies any recent cough, cold symptoms, no SOB over her usual, no fevers/chills/sweats.No diarrhea. SHe has been isolating herself for weeks due to COVID-19. No signs or symptoms otherwise of infection She will be admitted for Orthopedic evaluation and pain management with likely need for rehab placement. -Admit to med/surgical floor -consult Ortho, PT/OT for evaluations -pain control with tylenol, ibuprofen prn, pt refuses opioids as they make her nauseated -NWB left lower ext for now till seen by Ortho -diabetic/HH diet, will not need surgery likely -maria dolores po, no IVFs needed -will need rehab placement -follow CBC in case of blood loss, follow BMP/renal function -DVT prophylaxis with Lovenox (2) Closed fracture of left acetabulum: Left side, secondary to fall, as above (3) Bilateral sacral insufficiency fracture: as above (4) Inferior pubic ramus fracture: as above, bilateral (5) Fracture of pubic ramus: as above, right side superior ramus (6) Abrasion of leg, left: clean and dress (7) Abrasion of elbow, left: clean and dress (8) Diabetes mellitus, type 2: hold home metformin for now -SSI check A1C in AM (9) Anemia: chronic, stable at 10, normocyctic follow CBC (10) CAD (coronary atherosclerotic disease): with h/o ?MD in 2015 had cath with no intervention No chest pain here, no ECG changes -continue ASA (11) Chronic respiratory failure with hypoxia and hypercapnia: continue continuous home O2 at 2L-at baseline CXR unchanged, with lung nodule -continue BiPAP qhs-pt has Trilogy at home and says she uses it but has no idea what her settings are -give BiPAP here 12/5 qhs Follow HCO3 on BMP as is higher than usual at 43 (12) Tobacco use disorder: continues to smoke "every chance I get" -declines nicotine patch counseled on cessation (13) Right middle lobe pulmonary nodule: Presumed CA-recently completed XRT no further treatment at this time (14) COPD (chronic obstructive pulmonary disease): severe continue home inhalers no acute exacerbation continue O2 from home (15) Depression: stable, continue Celexa (16) Osteoporosis: WIth osteoporotic fractures after fall from standing height -continue Fosamax -consider Forteo or Prolia as outpt add on calcium and Vit D (17) DVT prophylaxis: Lovenox SQ, SCDs, TEDs Dispo-admit to med/surgical floor Will likely need rehab placement Admission and Anticipated Discharge Date Admission Date: 01/06/20 History of Present Illness Chief Complaint: Fall,hip pain Primary Care Provider: Mary Hester, This pt is a 74 yo female with a h/o COPD on chronic O2 2LNC and BiPAP qhs, osteoporosis,DMII, CAD, AAA, nephrolithiasis, depression, lung CA s/p XRT, who presents after sustaining a mechanical fall with left hip pain. She reports she caught her toes on her O2 cord and tripped, landing on her left side. She reports crawling to her couch and then couldn't move further. SHe waited a few hours and then called her children when she knew they would be waking up for the day who then called an ambulance. She has abrasions on her left elbow and knee and pain in the left hip. Denies LOC or head trauma. No chest pain or SOB, no abd pain. She was given Fentanyl by EMS on the way in to the hospital which caused significant nausea. In the ER, she had multiple imaging studies and was found to have bilateral pelvic and sacral insufficiency fractures, and a left hip acetabular fracture. Her WBC count was mildly elevated at 13 on arrival and her HCO3 is chronically elevated, however she denies any recent cough, cold symptoms, no SOB over her usual, no fevers/chills/sweats.No diarrhea. SHe has been isolating herself for weeks due to COVID-19. She will be admitted for Orthopedic evaluation and pain management with likely need for rehab placement. Allergies Allergy/AdvReac Type Severity Reaction Status Date / Time house dust mite Allergy Severe Verified 01/06/20 11:05 tree and shrub pollen Allergy Severe Verified 01/06/20 11:05 Sulfa (Sulfonamide Allergy Intermediate hives Verified 01/06/20 11:05 Antibiotics) Home Medications Home Medications Medication Instructions Recorded Confirmed Type Spiriva Respimat 2 puff INHALATION QAM 06/29/18 01/06/20 History aspirin [Aspir-81] 81 mg PO HS 06/29/18 01/06/20 History zinc 50 mg PO QAM 06/29/18 01/06/20 History Oxygen Home #1 ea 05/01/19 11/07/19 History levalbuterol HCl 0.63 mg/3 mL 0.63 mg INHALATION Q4H PRN #15 ml 05/01/19 0 History solution for nebulization alendronate 70 mg PO VALLE 10/09/19 01/06/20 History miscellaneous medical supply #1 ea 10/17/19 11/07/19 Rx miscellaneous medical supply #1 ea 10/29/19 11/07/19 Rx Wheelchair (Manual or Powered) #1 ea 11/10/19 Rx miscellaneous medical supply See Rx Instructions MS DAVIS #1 11/10/19 Rx ea fluticasone propionate 50 1 sprays INTNAS DAILY PRN #9.9 ml 11/23/19 01/06/20 Rx mcg/actuation nasal spray,suspension metformin 500 mg tablet 500 mg PO BID #180 tab 12/12/19 01/06/20 Rx albuterol sulfate 90 mcg/actuation 2 puff INHALATION Q4H PRN #18 gm 12/14/19 01/06/20 Rx aerosol inhaler citalopram 20 mg tablet 20 mg PO QAM #90 tab 12/25/19 01/06/20 Rx blood sugar diagnostic #100 ea 01/01/20 Rx blood-glucose meter #1 ea 01/01/20 Rx budesonide-formoterol HFA 160 2 puff INHALATION BID #10.2 gm 01/02/20 01/06/20 Rx mcg-4.5 mcg/actuation aerosol inhaler Cranberry 4200mg 4,200 mg PO QAM 01/06/20 01/06/20 History cyanocobalamin (vitamin B-12) 1,000 mcg PO QAM 01/06/20 01/06/20 History ibuprofen 200 mg PO Q6H PRN 01/06/20 01/06/20 History prednisone 5 mg PO QAM 01/06/20 01/06/20 History Past Med/Surg History Medical History Acute exacerbation of chronic obstructive pulmonary disease (COPD) (Resolved) Acute non-ST segment elevation myocardial infarction (NSTEMI) following previous myocardial infarction (Inactive) Age related osteoporosis (Inactive) Anxiety Bursitis of ankle Classic migraine with aura (Inactive) Coronary artery disease (Inactive) Current use of steroid medication F/U DR WALLACE Depression Diabetes mellitus, type 2 Diverticulosis (Inactive) Hearing loss, sensorineural (Inactive) History of colon polyps Iron deficiency anemia Normocytic anemia On home oxygen therapy 3/L/MIN NC Osteoarthritis Right middle lobe pulmonary nodule (Chronic) SOB (shortness of breath) Type II diabetes mellitus Vitamin B12 deficiency (dietary) anemia Weight loss, non-intentional Surgical History History of bunionectomy of right great toe History of cardiac cath 2014-NO STENTS NEEDED [facility] History of carpal tunnel release RIGHT History of cataract surgery Bilateral History of colonoscopy History of hysterectomy OVARIES REMAIN History of tonsillectomy Family History Mother , in her 70s Emphysema lung Father , 68yo Myocardial infarction Brother No family history of cancer Brother No family history of cancer Brother No family history of cancer Brother No family history of cancer Sister Alzheimer disease Sister No family history of cancer Daughter No problems noted. Daughter No problems noted. 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 Feels Safe at Home: Yes Safety Concerns: Feels Safe At This Time Smoking Status: Current every day smoker Tobacco Type: cigarettes ; Second Hand Exposure: No ; Hx Alcohol Use: No Hx Substance Use: No Childhood Exposure to Second-Hand Smoke: Yes Diet Comment: regular caffeine: No during the past year weight has: decreased > 10 lbs Dental Care, Regularly: No Physical Activity Frequency: Does not Exercise Seatbelt Use: always Sunscreen Use: No Review of Systems Review of Systems: All systems reviewed & are unremarkable except as noted in HPI & below Physical Exam Constitutional: + frail appearing; no acute distress and not lethargic Eyes: PERRL, conjunctivae normal, anicteric sclerae ENMT: external ear and nose normal, oropharynx normal Neck: trachea midline, no thyromegaly Respiratory: normal respiratory effort, lungs clear to auscultation Auscultation: + diminished lung sounds (throughout) Cardiovascular: RRR, no murmur, no edema Chest (Breasts): Chest: normal inspection of chest Gastrointestinal (Abdomen): normal bowel sounds, soft, nontender, no hepatosplenomegaly Musculoskeletal: Extremities: extremities normal to inspection and strength 5/5 throughout; no cyanosis and no clubbing Hip: hip normal to inspection (with pain with motion of legs) and no deformity Skin: no rashes, warm and dry Neurologic: moves all extremities and awake; no focal motor deficits Psychiatric: A+Ox3, euthymic affect Lymphatic: no lymphedema Results & Data Results & Data ([facility]) Vital Signs (Past 12 Hours) Vital Signs Temp Pulse Pulse Resp BP BP Pulse Ox 01/06/20 13:00 83 20 136/70 98 01/06/20 11:25 77 18 135/63 100 01/06/20 09:46 36.8 C 74 18 157/73 H 99 Laboratory Results Labs reviewed Diagnostic Findings XR chest 1V portable HISTORY: 74 years-old Female fall, copd acute fall. COPD COMPARISON: Chest radiograph 10/09/2019, PET CT 09/18/2019 TECHNIQUE: Portable AP view of the chest FINDINGS: Cardiomediastinal and hilar silhouettes are unchanged. Calcified plaque of the thoracic aortic arch. Severe emphysema with chronic fibrotic changes. The previously noted 1.6 cm solid nodule of the right middle lobe is better seen on comparison PET/CT. Skin folds project over the left greater than right hemithoraces. Mild convex right curvature of the midthoracic spine. Carotid calcifications are noted. I lateral shoulder rotator cuff calcific tendinosis. Degenerative changes of the shoulders and spine. IMPRESSION: No acute process. CT cervical spine wo con CT DOSE: 1212.85 mGy.cm CLINICAL HISTORY: 74 years-old Female with fall. Acute head and neck injury status post fall COMPARISON: Head CT of same day TECHNIQUE: Multiple axial CT images of the cervical spine were obtained without contrast. A dose lowering technique was utilized adhering to the principles of ALARA. FINDINGS: Demineralized appearance of the bones. Severe degenerative changes at the C1-C2 articulation. There is mild superior endplate compression of less than 20% noted at C3-T2 is likely chronic and/or degenerative. There is severe multilevel facet arthrosis. No definitive acute fracture or subluxation. Evaluation of the central canal and neuroforamina is better evaluated by MRI. Multilevel foraminal narrowing is noted without definite high-grade central canal stenosis. Mild convex left curvature. Extensive calcification of the bilateral carotid bulbs. Advanced emphysema with chronic fibrotic changes of the lung apices. Secretions are noted within the airway. IMPRESSION: 1. No definite acute fracture or subluxation. 2. Mild superior endplate compression of less than 20% is noted throughout the cervical and imaged thoracic segments, likely chronic and/or degenerative in nature. 3. Degenerative changes as above. Head CT Noncon: IMPRESSION: No acute intracranial abnormality or calvarial fracture. With chronic microvascular ischemic changes [facility], [place] [phone] CT Scan Report Patient: LISE GARCIA AAdmit Date: 01/06/20 MR#: [id number]: [id number] Acct ID:[id number]: Date: [address] [place] [address] Zip: [place] [id number] Age: 74Location: ED Sex: F Room/Bed: Att Phy:Diagnosis: FELL AND TRIPPED Bev Phy: DiegoMary burns, DOService Date: 01/06/20 [facility] Phy:Interpreting Phy: Blu Palmer Admit Phy: Ordering Phy: Juan Chong M.D. cc: ~ ABDOMEN AND PELVIS CT WITHOUT CONTRAST HISTORY: Acute pelvic pain status post fall fall, L pelvic /hip pain TECHNIQUE: Multiaxial CT images of the abdomen and pelvis were performed without contrast. A dose lowering technique was utilized adhering to the principles of ALARA. COMPARISON STUDY: CT left hip of same day, PET CT 09/18/2019. FINDINGS: Advanced emphysema. The previously noted suspicious nodule of the right middle lobe is not imaged. Moderate bronchial wall thickening suggests bronchitis. Mild dependent bibasilar atelectasis. No pneumatosis or pneumoperitoneum. Imaged inferior cardiac chambers are unremarkable. Coronary artery calcifications. Limited evaluation of the solid abdominal organs without the use of IV contrast. Within the limitations of the study the spleen, pancreas and right adrenal gland are unremarkable. Pancreatic duct measures the upper limits of normal at 3 mm. Moderate gallbladder distention without cholelithiasis identified. There is mild prominence of the extrahepatic biliary tree. Left adrenal gland thickening suggests hyperplasia. Unremarkable appearance of the liver. Ill-defined 4 mm hyperdense focus of the superior pole left kidney is unchanged and may reflect a complex cyst. Unchanged cyst of the inferior pole right kidney. 5 mm nonobstructing calculus of the inferior pole right kidney is also present. Mild nonspecific right perinephric stranding. No definite ureteral calculi. Unremarkable appearance of the urinary bladder with cystocele. Pelvic floor relaxation with hysterectomy. Extensive calcified plaque of the abdominal aorta with fusiform aneurysmal infrarenal dilation measuring up to 3.4 x 2.7 cm. No definite adenopathy. Nonspecific wall thickening of the distal esophagus. No bowel obstruction or bowel wall thickening. Moderate fecal retention. Colonic diverticulosis without acute diverticulitis. Nonvisualization of the appendix. Mild generalized body wall edema. Demineralized appearance of the bones. Acute mildly displaced fracture of the left inferior pubic ramus. Mild cortical irregularity of the right inferior pubic ramus equivocal for subtle acute nondisplaced fracture on image 396 of series 7. Acute mildly displaced fracture of the right superior pubic ramus extending into the right pubic body on image 380 series 7. No diastases of the pubic symphysis. Subtle acute nondisplaced fracture of the anterior wall of the left acetabulum. Subtle acute bilateral sacral insufficiency fractures. The imaged bilateral femora appear intact. No acute displaced rib fracture identified. No acute compression deformity. IMPRESSION: 1. Limited exam without the use of IV contrast. No acute intra-abdominal or intrapelvic abnormality identified. 2. Multiple acute pelvic fractures include bilateral sacral insufficiency fractures. Acute fractures of the bilateral inferior pubic rami, acute mildly displaced fracture of the right superior pubic ramus extending into the right pubic body and acute nondisplaced fracture of the left anterior wall acetabulum. 3. Fusiform dilation of the abdominal aorta, 3.4 x 2.7 cm. 4. Nonobstructing right nephrolithiasis. 5. Advanced emphysema. 6. Additional findings as above. CT hip LT wo con HISTORY: 74 years-old Female fall, pain acute left hip pain status post fall COMPARISON: CT abdomen and pelvis, radiographs of the pelvis and left femur of same day. TECHNIQUE: Multiple axial CT images of the left hip were obtained without use of IV contrast. A dose lowering technique was used consistent with the principals of ALARA. FINDINGS: Demineralized appearance of the bones. There is a partially imaged acute left- sided sacral insufficiency fracture. Subtle acute nondisplaced fracture involves the anterior wall of the acetabulum, image 155 series 8, image 19 series 800 and image 21 series 8 L1. Acute mildly displaced fracture of the left inferior pubic ramus, image 224 series 8. Moderate left hip osteoarthritis. No acute fracture of the left femur. No dislocation or avascular necrosis. Colonic diverticulosis. Please refer to CT abdomen and pelvis study for further details of the intrapelvic findings. No large intramuscular hematoma of the left thigh. Small left hip joint effusion. Arterial calcifications. IMPRESSION: 1. Acute left-sided sacral insufficiency fracture. 2. Subtle acute nondisplaced fracture involves the anterior wall of the left acetabulum. 3. Moderate left hip osteoarthritis without dislocation or acute left femoral fracture identified. 4. Acute mildly displaced fracture of the left inferior pubic ramus. 5. Please refer to CT abdomen and pelvis study of same day for additional findings. ECG Additional Comments: NSR, peaked T waves, unchanged from previous Code Status & VTE Plan VTE Prophylaxis Plan VTE Prophylaxis will be ordered: Yes PG Care Time/CCT Total # of Minutes Spent Total Time Spent with Patient: Total time spent is greater than 50% in coordination of care (as documented) at patient's floor/unit and/or counseling patient: Coding Level of Care Code 27286 Initial Inpt Care Lvl 3 Diagnoses Fall W19.XXXA Encounter type: initial encounter Closed fracture of left acetabulum S32.415A Encounter type: initial encounter Fracture alignment: nondisplaced Sublocation of acetabulum: anterior wall Bilateral sacral insufficiency fracture M84.48XA Encounter type: initial encounter Inferior pubic ramus fracture S32.599A Encounter type: initial encounter Fracture type: closed Laterality: unspecified laterality Fracture of pubic ramus S32.591A Encounter type: initial encounter Fracture type: closed Laterality: right Abrasion of leg, left S80.812A Encounter type: initial encounter Abrasion of elbow, left S50.312A Encounter type: initial encounter Diabetes mellitus, type 2 E11.9 Anemia D64.9 CAD (coronary atherosclerotic disease) I25.10 Chronic respiratory failure with hypoxia and hypercapnia J96.11; J96.12 Tobacco use disorder F17.200 Right middle lobe pulmonary nodule R91.1 COPD (chronic obstructive pulmonary disease) J44.9 Depression F32.9 Osteoporosis M81.0 DVT prophylaxis Z29.9 (1) Closed fracture of left acetabulum Encounter type: initial encounter Fracture alignment: nondisplaced Sublocation of acetabulum: anterior wall Qualified Code(s): S32.415A - Nondisplaced fracture of anterior wall of left acetabulum, initial encounter for closed fracture (2) Fracture of pubic ramus Encounter type: initial encounter Fracture type: closed Laterality: right Qualified Code(s): S32.591A - Other specified fracture of right pubis, initial encounter for closed fracture (3) Inferior pubic ramus fracture Encounter type: initial encounter Fracture type: closed Laterality: unspecified laterality Qualified Code(s): S32.599A - Other specified fracture of unspecified pubis, initial encounter for closed fracture (4) Bilateral sacral insufficiency fracture Encounter type: initial encounter Qualified Code(s): M84.48XA - Pathological fracture, other site, initial encounter for fracture (5) Fall Encounter type: initial encounter Qualified Code(s): W19.XXXA - Unspecified fall, initial encounter (6) Abrasion of elbow, left Encounter type: initial encounter Qualified Code(s): S50.312A - Abrasion of left elbow, initial encounter (7) Abrasion of leg, left Encounter type: initial encounter Qualified Code(s): S80.812A - Abrasion, left lower leg, initial encounter
--- NOTE | 2020-01-06 13:45 | Electrocardiogram Report ---
Test Reason : Blood Pressure : / mmHG Vent. Rate : 075 BPM Atrial Rate : 075 BPM P-R Int : 150 ms QRS Dur : 096 ms QT Int : 392 ms P-R-T Axes : 080 019 064 degrees QTc Int : 437 ms Normal sinus rhythm Peaked T waves(consider ischemia,hyperkalemia,etc.) Abnormal ECG When compared with ECG of 09-OCT-2019 11:51, No significant change was found Confirmed by Jevon Urbano ([id number]) on 01/06/2020 1:45:24 PM Referred By: Confirmed By:Jevon Urbano
[2020-01-06] MEDS ORDERED: ONDANSETRON INJ 2 MG/ML 2 ML VIAL IV PRN (14:16)
[2020-01-06] MEDS ORDERED: DEXTROSE 50% 50 ML SYRINGE IV PRN (14:16)
[2020-01-06] MEDS ORDERED: ALUMINUM/MAGNESIUM SUSP 30 ML UDC PO PRN (14:16)
[2020-01-06] MEDS ORDERED: POLYETHYLENE (MIRALAX) 17 GM PACK PO PRN (14:16)
[2020-01-06] MEDS ORDERED: MAGNESIUM HYDROXIDE SUSP 30 ML UDC PO PRN (14:16)
[2020-01-06] MEDS ORDERED: CARBOHYDRATES FOR HYPOGLYCEMIA PO PRN (14:16)
[2020-01-06] MEDS ORDERED: FLUTICASONE PROPIONATE NA SPR 16 GM BTL NAE PRN (14:16)
[2020-01-06] MEDS ORDERED: GLUCOSE 40% GEL 15 GM TUBE PO PRN (14:16)
[2020-01-06] MEDS ORDERED: GLUCOSE 10 TABS/TUBE PO PRN (14:16)
[2020-01-06] MEDS ORDERED: GLUCAGON FOR INJ 1 MG VIAL SQ PRN (14:16)
[2020-01-06 14:47] LABS: Basophils # (auto) 0.02 K/uL (0-0.2); Basophils % (auto) 0.2 %; Eosinophils # (auto) 0.02 K/uL (0-0.5); Eosinophils % (auto) 0.2 %; Hematocrit (blood only) 34.9 % (37-47); Hemoglobin 10.6 g/dL (12.0-16.0); Immature Granulocytes # (auto) 0.02 K/uL (0.00-0.02); Immature Granulocytes % (auto) 0.2 %; Lymphocytes # (auto) 0.86 K/uL (1.2-3.4); Lymphocytes % (auto) 7.3 %; Mean Corpuscular Hemoglobin 30.1 pg (25-34); Mean Corpuscular Hgb Conc 30.4 g/dL (32-36); Mean Corpuscular Volume 99.1 fL (80-100); Mean Platelet Volume 10.3 fL (7.4-10.4); Monocytes # (auto) 0.86 K/uL (0.11-0.59); Monocytes % (auto) 7.3 %; Neutrophils # (auto) 10.02 K/uL (1.4-6.5); Neutrophils % (auto) 84.8 %; Platelet Count 187 K/uL (130-400); RDW Coefficient of Variation 12.9 % (11.5-14.5); RDW Standard Deviation 46.5 fL (36.4-46.3); Red Blood Count 3.52 M/uL (4.2-5.4)
[2020-01-06 15:23] LABS: Calcium 8.6 mg/dl (8.5-10.1); Creatinine Clr Calc Pharmacy 107.2 ml/min; Est GFR (African American) 116.2; Est GFR (Non-African American) 100.3; Potassium 4.6 mmol/L (3.5-5.1)
[2020-01-06] MEDS: ENOXAPARIN INJ 40 MG/0.4 ML SYR SQ SCH (15:54)
[2020-01-06] MEDS: predniSONE 5 MG TAB PO SCH (15:57)
[2020-01-06] MEDS: INSULIN ASPART 100 UNITS/ML 3 ML PEN SC SCH ×2 (18:14→21:53)
[2020-01-06] MEDS: ASPIRIN 81 MG ECTAB PO SCH (21:07)
[2020-01-06] MEDS: LEVALBUTEROL HCL 0.63 MG/3 ML NEB INH PRN (21:17)
[2020-01-07 05:56] LABS: Basophils # (auto) 0.02 K/uL (0-0.2); Basophils % (auto) 0.2 %; Eosinophils # (auto) 0.03 K/uL (0-0.5); Eosinophils % (auto) 0.3 %; Hematocrit (blood only) 33.9 % (37-47); Hemoglobin 10.4 g/dL (12.0-16.0); Immature Granulocytes # (auto) 0.01 K/uL (0.00-0.02); Immature Granulocytes % (auto) 0.1 %; Lymphocytes % (auto) 6.8 %; Mean Corpuscular Hemoglobin 30.4 pg (25-34); Mean Corpuscular Hgb Conc 30.7 g/dL (32-36); Mean Corpuscular Volume 99.1 fL (80-100); Mean Platelet Volume 10.6 fL (7.4-10.4); Monocytes # (auto) 1.08 K/uL (0.11-0.59); Monocytes % (auto) 9.2 %; Neutrophils # (auto) 9.77 K/uL (1.4-6.5); Neutrophils % (auto) 83.4 %; Platelet Count 190 K/uL (130-400); RDW Coefficient of Variation 12.7 % (11.5-14.5); Red Blood Count 3.42 M/uL (4.2-5.4); White Blood Count 11.71 K/uL (4.8-10.8)
[2020-01-07 06:14] LABS: BUN Creatinine Ratio 50.7 (10-20); Calcium 8.8 mg/dl (8.5-10.1); Creatinine Clr Calc Pharmacy 128.7 ml/min; Est GFR (African American) 123.4; Est GFR (Non-African American) 106.5; Potassium 4.5 mmol/L (3.5-5.1)
[2020-01-07] MEDS: UMECLIDINIUM BROMIDE 62.5MCG/BLISTER 7 PUFFS/INHALER INH SCH (07:59)
[2020-01-07] MEDS: CYANOCOBALAMIN 500 MCG TABLET (VITAMIN B-12) PO SCH (08:01)
[2020-01-07] MEDS: predniSONE 5 MG TAB PO SCH (08:01)
[2020-01-07] MEDS: CITALOPRAM 20 MG TAB PO SCH (08:01)
[2020-01-07] MEDS: ZINC SULFATE 220 MG CAPSULE PO SCH (08:02)
[2020-01-07] MEDS: LEVALBUTEROL HCL 0.63 MG/3 ML NEB INH PRN ×4 (08:09→23:15)
[2020-01-07] MEDS ORDERED: FLUTICASONE/VILANTEROL 100/25MCG 14 PUFFS/INHALER INH SCH (09:00)
[2020-01-07] MEDS ORDERED: ALENDRONATE SODIUM 70 MG TAB PO SCH (09:00)
[2020-01-07] MEDS: INSULIN ASPART 100 UNITS/ML 3 ML PEN SC SCH ×4 (09:08→21:22)
[2020-01-07] MEDS: CALCIUM 600MG + VIT D 400 IU TAB PO SCH ×2 (10:13→21:23)
[2020-01-07] MEDS: IBUPROFEN 200 MG TAB PO PRN ×2 (10:17→17:00)
--- NOTE | 2020-01-07 11:34 | Consultation Report ---
DATE OF CONSULTATION: 01/07/2020 ORTHOPEDIC SURGERY INPATIENT CONSULTATION Special attention to multiple pelvic fractures. HISTORY OF PRESENT ILLNESS: This is a 74-year-old female with history of COPD who presents after a fall. She presents with complaints of left hip pain. She tripped over her oxygen cord and fell. She was down for a few hours. PAST MEDICAL HISTORY: 1. Type 2 diabetes. 2. History of anemia. 3. History of coronary artery disease. 4. History of chronic respiratory failure, on O2, 2 liters at baseline at home. 5. Tobacco abuse. 6. Right middle lobe pulmonary nodule. 7. Depression. 8. Osteoporosis, on Fosamax. PHYSICAL EXAMINATION: Left leg examination does show pain with log roll. She has no open injuries. She has mild tenderness globally about the pelvic region. Left lower extremity is grossly neurovascularly intact. She can flex and extend her toes and ankle. Her toes are warm and well perfused. Right lower extremity examination shows minimal pain with log roll. Right lower extremity is neurovascularly intact. She can flex and extend her toes and ankle. Calves are soft bilaterally. Review of AP pelvis x-ray does show good gross alignment of the pelvis; it does not show obvious fracture. Review of CAT scan of both the hip and the abdomen and pelvis does show bilateral sacral insufficiency fractures, does show a nondisplaced fracture involving the anterior wall of the acetabulum. Hip arthritis is seen on the left. CAT scan of the pelvis shows acute fractures of bilateral inferior pubic rami as well as mildly displaced right superior pubic ramus fracture. ASSESSMENT: A 74-year-old female with: 1. Bilateral sacral insufficiency fractures. 2. Acute fracture, bilateral inferior pubic rami. 3. Right superior pubic ramus fracture. 4. Acute nondisplaced fracture of left anterior wall of the acetabulum. PLAN: I discussed findings and treatment with her. I do feel that this fracture should be appropriately treated nonoperatively. Recommendation is partial weightbearing on the left lower extremity. She may be ambulatory with a walker and will begin physical therapy today. Upon discharge, she may follow up with [facility] to ensure fractures do heal. Fractures do represent osteoporotic fractures and she would benefit from further treatment and evaluation for osteoporosis. Orthopedics will sign off, please call with questions. Upon discharge, follow up 10-[address] [facility] [place]- Dr. Metcalf or Dr Gonzales. [facility]
--- NOTE | 2020-01-07 12:25 | Hospitalist Progress Note ---
Date of Service January 07, 2020 Assessment & Plan (1) Fall: This pt is a 74 yo female with a h/o COPD on chronic O2 2LNC and BiPAP qhs, osteoporosis,DMII, CAD, AAA, nephrolithiasis, depression, lung CA s/p XRT, who presents after sustaining a mechanical fall with left hip pain. She reports she caught her toes on her O2 cord and tripped, landing on her left side. She reports crawling to her couch and then couldn't move further. SHe waited a few hours and then called her children when she knew they would be waking up for the day who then called an ambulance. She has abrasions on her left elbow and knee and pain in the left hip. Denies LOC or head trauma. No chest pain or SOB, no abd pain. She was given Fentanyl by EMS on the way in to the hospital which caused significant nausea. In the ER, she had multiple imaging studies and was found to have bilateral pelvic and sacral insufficiency fractures, and a left hip acetabular fracture. Her WBC count was mildly elevated at 13 on arrival and her HCO3 is chronically elevated, however she denies any recent cough, cold symptoms, no SOB over her usual, no fevers/chills/sweats.No diarrhea. SHe has been isolating herself for weeks due to COVID-19. No signs or symptoms otherwise of infection She was admitted for Orthopedic evaluation and pain management with likely need for rehab placement. -consult Ortho appreciated-recommends nonsurgical conservative management, treatment for osteoporosis, and can wait there partially on the left lower extremity and begin physical [id number] with orthopedics in the office in 10 to [address] Gonzales or Dr. Brambila -PT/OT for evaluations-patient will need rehab -pain control with tylenol, ibuprofen prn, pt refuses opioids as they make her nauseated -Labs are stable-no evidence of blood loss from pelvic fractures on CBC -Continue DVT prophylaxis with Lovenox until more ambulatory-perhaps 1 to 2 weeks (2) Closed fracture of left acetabulum: Left side, secondary to fall, as above (3) Bilateral sacral insufficiency fracture: as above (4) Inferior pubic ramus fracture: as above, bilateral Pelvis is stable on examination and orthopedics does not recommend any surgical intervention (5) Fracture of pubic ramus: as above, right side superior ramus (6) Abrasion of leg, left: clean and dress (7) Abrasion of elbow, left: clean and dress (8) Diabetes mellitus, type 2: Glucose here is fairly well controlled Most recent hemoglobin A1c was 6.0% in 08/2018-very well controlled Okay to restart home metformin 500 mg p.o. twice daily this evening -Continue SSI Hemoglobin A1c here is pending but I do not expect it to be significantly elevated (9) Anemia: chronic, stable at 10.4, normocyctic to borderline macrocytic Vitamin B12 level was borderline low at 241 in 08/2019 and folate was normal at 10 at that time -Continue vitamin B12 1000 mcg p.o. once daily Follow as an outpatient (10) CAD (coronary atherosclerotic disease): with h/o ?CA in 2014 had cath with no intervention No chest pain here, no ECG changes -continue ASA (11) Chronic respiratory failure with hypoxia and hypercapnia: continue continuous home O2 at 2L-at baseline CXR unchanged, with lung nodule -continue BiPAP qhs-pt has Trilogy at home and says she uses it but has no idea what her settings are -give BiPAP here 12/5 qhs HCO3 on BMP higher than usual at 43 on admission and is now improved down to 40 after using BiPAP overnight (12) Tobacco use disorder: continues to smoke "every chance I get" -declines nicotine patch counseled on cessation (13) Right middle lobe pulmonary nodule: Presumed CA-recently completed XRT no further treatment at this time (14) COPD (chronic obstructive pulmonary disease): severe, with some increased shortness of breath today continue formulary substitution for inhalers but increase Brio Ellipta to 200/25 1 puff once daily, Umeclidinium 1 puff once daily (home inhalers include Symbicort and Spiriva) Continue prednisone 5 mg daily-no stress dose steroids needed at this time as blood pressures are elevated continue O2 from home (15) Depression: stable, continue Celexa (16) Osteoporosis: WIth osteoporotic fractures after fall from standing height -continue Fosamax -consider Forteo or Prolia as outpt added on calcium and Vit D (17) DVT prophylaxis: Lovenox SQ, SCDs, TEDs-recommend continuing Lovenox after discharge to rehab for 2 weeks Dispo-continued stay on med/surgical floor Plan for rehab placement at either [facility] bed (where her daughter works) or else [facility] on Wednesday as neither is open or accepting patients today on a Wednesday Admission and Anticipated Discharge Date Admission Date: January 06, 2020 Anticipated date of discharge: 01/08/20 Subjective Patient feeling very short of breath today and is requesting to go up on the dose of her inhaler and for a nebulizer treatment. She reports the pain in her left hip is improved and she was able to get up with physical therapy and use the bedside commode. She is tolerating p.o., denies nausea or vomiting Review of Systems Review of Systems: All systems reviewed & are unremarkable except as noted in HPI & below Physical Exam Constitutional: + frail appearing; no acute distress and not lethargic Eyes: + anicteric sclerae Neck: trachea midline, no thyromegaly Respiratory: normal respiratory effort, lungs clear to auscultation Auscultation: + diminished lung sounds (throughout) Cardiovascular: RRR, no murmur, no edema Chest (Breasts): Chest: normal inspection of chest Gastrointestinal (Abdomen): normal bowel sounds, soft, nontender, no hepatosplenomegaly Musculoskeletal: Extremities: extremities normal to inspection; no cyanosis and no clubbing Skin: no rashes, warm and dry Neurologic: moves all extremities and awake; no focal motor deficits Psychiatric: Orientation: alert, oriented x 3 and cooperative Affect: + anxious affect Mood: + anxious mood Lymphatic: no lymphedema Results & Data Results & Data ([facility]) Vital Signs (Past 12 Hours) Vital Signs Temp Pulse Resp BP Pulse Ox 01/07/20 08:09 89 18 90 01/07/20 07:49 36.8 C 91 H 18 164/87 H Laboratory Results 01/07/20 01/07/20 01/07/20 Range/Units 12:14 08:07 05:37 WBC (4.8-10.8) K/uL RBC (4.2-5.4) M/uL Hgb (12.0-16.0) g/dL Hct (37-47) % MCV (80-100) fL MCH (25-34) pg MCHC (32-36) g/dL RDW Std Deviation (36.4-46.3) fL RDW Coeff of Jamison (11.5-14.5) % Plt Count (130-400) K/uL MPV (7.4-10.4) fL Immature Gran % (Auto) % Neut % (Auto) % Lymph % (Auto) % [place] % (Auto) % Eos % (Auto) % Baso % (Auto) % Immature Gran # (Auto) (0.00-0.02) K/uL Neut # (Auto) (1.4-6.5) K/uL Lymph # (Auto) (1.2-3.4) K/uL [place] # (Auto) (0.11-0.59) K/uL Eos # (Auto) (0-0.5) K/uL Baso # (Auto) (0-0.2) K/uL Sodium (136-145) mmol/L Potassium (3.5-5.1) mmol/L Chloride (98-107) mmol/L Carbon Dioxide (21-32) mmol/L Anion Gap (3-11) BUN (7-18) mg/dl Creatinine (0.6-1.2) mg/dl Est Cr Clr Drug Dosing ml/min Est GFR ( Amer) Est GFR (Non-Af Amer) BUN/Creatinine Ratio (10-20) Glucose (70-99) mg/dl POC Glucose 171 H 138 H (70-99) mg/dl Estimat Average Glucose Pending Hemoglobin A1c Pending Calcium (8.5-10.1) mg/dl 01/07/20 01/07/20 01/06/20 Range/Units 05:37 05:37 20:29 WBC 11.71 H (4.8-10.8) K/uL RBC 3.42 L (4.2-5.4) M/uL Hgb 10.4 L (12.0-16.0) g/dL Hct 33.9 L (37-47) % MCV 99.1 (80-100) fL MCH 30.4 (25-34) pg MCHC 30.7 L (32-36) g/dL RDW Std Deviation 46.0 (36.4-46.3) fL RDW Coeff of Jamison 12.7 (11.5-14.5) % Plt Count 190 (130-400) K/uL MPV 10.6 H (7.4-10.4) fL Immature Gran % (Auto) 0.1 % Neut % (Auto) 83.4 % Lymph % (Auto) 6.8 % [place] % (Auto) 9.2 % Eos % (Auto) 0.3 % Baso % (Auto) 0.2 % Immature Gran # (Auto) 0.01 (0.00-0.02) K/uL Neut # (Auto) 9.77 H (1.4-6.5) K/uL Lymph # (Auto) 0.80 L (1.2-3.4) K/uL [place] # (Auto) 1.08 H (0.11-0.59) K/uL Eos # (Auto) 0.03 (0-0.5) K/uL Baso # (Auto) 0.02 (0-0.2) K/uL Sodium 133 L (136-145) mmol/L Potassium 4.5 (3.5-5.1) mmol/L Chloride 90 L (98-107) mmol/L Carbon Dioxide 40 H (21-32) mmol/L Anion Gap 3.0 (3-11) BUN 18 (7-18) mg/dl Creatinine 0.35 L (0.6-1.2) mg/dl Est Cr Clr Drug Dosing 128.7 ml/min Est GFR ( Amer) 123.4 Est GFR (Non-Af Amer) 106.5 BUN/Creatinine Ratio 50.7 H (10-20) Glucose 120 H (70-99) mg/dl POC Glucose 134 H (70-99) mg/dl Estimat Average Glucose Hemoglobin A1c Calcium 8.8 (8.5-10.1) mg/dl 01/06/20 01/06/20 Range/Units 16:58 14:36 WBC (4.8-10.8) K/uL RBC (4.2-5.4) M/uL Hgb (12.0-16.0) g/dL Hct (37-47) % MCV (80-100) fL MCH (25-34) pg MCHC (32-36) g/dL RDW Std Deviation (36.4-46.3) fL RDW Coeff of Jamison (11.5-14.5) % Plt Count (130-400) K/uL MPV (7.4-10.4) fL Immature Gran % (Auto) % Neut % (Auto) % Lymph % (Auto) % [place] % (Auto) % Eos % (Auto) % Baso % (Auto) % Immature Gran # (Auto) (0.00-0.02) K/uL Neut # (Auto) (1.4-6.5) K/uL Lymph # (Auto) (1.2-3.4) K/uL [place] # (Auto) (0.11-0.59) K/uL Eos # (Auto) (0-0.5) K/uL Baso # (Auto) (0-0.2) K/uL Sodium 134 L (136-145) mmol/L Potassium 4.6 (3.5-5.1) mmol/L Chloride 93 L (98-107) mmol/L Carbon Dioxide 42 H* (21-32) mmol/L Anion Gap -1.0 L (3-11) BUN 19 H (7-18) mg/dl Creatinine 0.42 L (0.6-1.2) mg/dl Est Cr Clr Drug Dosing 107.2 ml/min Est GFR ( Amer) 116.2 Est GFR (Non-Af Amer) 100.3 BUN/Creatinine Ratio 44.0 H (10-20) Glucose 167 H (70-99) mg/dl POC Glucose 132 H (70-99) mg/dl Estimat Average Glucose Hemoglobin A1c Calcium 8.6 (8.5-10.1) mg/dl PG Care Time/CCT Total # of Minutes Spent Total Time Spent with Patient: Total time spent is greater than 50% in coordination of care (as documented) at patient's floor/unit and/or counseling patient: Coding Level of Care Code 73723 Subseq Hosp Care Lvl 2 Diagnoses Fall W19.XXXA Encounter type: initial encounter Closed fracture of left acetabulum S32.415A Encounter type: initial encounter Fracture alignment: nondisplaced Sublocation of acetabulum: anterior wall Bilateral sacral insufficiency fracture M84.48XA Encounter type: initial encounter Inferior pubic ramus fracture S32.599A Encounter type: initial encounter Fracture type: closed Laterality: unspecified laterality Fracture of pubic ramus S32.591A Encounter type: initial encounter Fracture type: closed Laterality: right Abrasion of leg, left S80.812A Encounter type: initial encounter Abrasion of elbow, left S50.312A Encounter type: initial encounter Diabetes mellitus, type 2 E11.9 Anemia D64.9 CAD (coronary atherosclerotic disease) I25.10 Chronic respiratory failure with hypoxia and hypercapnia J96.11; J96.12 Tobacco use disorder F17.200 Right middle lobe pulmonary nodule R91.1 COPD (chronic obstructive pulmonary disease) J44.9 Depression F32.9 Osteoporosis M81.0 DVT prophylaxis Z29.9 (1) Closed fracture of left acetabulum Encounter type: initial encounter Fracture alignment: nondisplaced Sublocation of acetabulum: anterior wall Qualified Code(s): S32.415A - Nondisplaced fracture of anterior wall of left acetabulum, initial encounter for closed fracture (2) Fracture of pubic ramus Encounter type: initial encounter Fracture type: closed Laterality: right Qualified Code(s): S32.591A - Other specified fracture of right pubis, initial encounter for closed fracture (3) Inferior pubic ramus fracture Encounter type: initial encounter Fracture type: closed Laterality: unspecified laterality Qualified Code(s): S32.599A - Other specified fracture of unspecified pubis, initial encounter for closed fracture (4) Bilateral sacral insufficiency fracture Encounter type: initial encounter Qualified Code(s): M84.48XA - Pathological fracture, other site, initial encounter for fracture (5) Fall Encounter type: initial encounter Qualified Code(s): W19.XXXA - Unspecified fall, initial encounter (6) Abrasion of elbow, left Encounter type: initial encounter Qualified Code(s): S50.312A - Abrasion of left elbow, initial encounter (7) Abrasion of leg, left Encounter type: initial encounter Qualified Code(s): S80.812A - Abrasion, left lower leg, initial encounter
[2020-01-07] MEDS: ENOXAPARIN INJ 40 MG/0.4 ML SYR SQ SCH (15:09)
[2020-01-07] MEDS: METFORMIN HCL 500 MG TAB PO SCH (17:42)
[2020-01-07] MEDS: ASPIRIN 81 MG ECTAB PO SCH (21:23)
[2020-01-08] MEDS: IBUPROFEN 200 MG TAB PO PRN ×2 (00:10→06:14)
[2020-01-08] MEDS: LEVALBUTEROL HCL 0.63 MG/3 ML NEB INH PRN (03:05)
[2020-01-08 06:39] LABS: Estimated Average Glucose 137 mg/dl; Hemoglobin A1C 6.4 % (4.5-5.6)
[2020-01-08] MEDS: INSULIN ASPART 100 UNITS/ML 3 ML PEN SC SCH ×2 (08:20→12:10)
[2020-01-08] MEDS: METFORMIN HCL 500 MG TAB PO SCH (08:22)
[2020-01-08] MEDS: ZINC SULFATE 220 MG CAPSULE PO SCH (08:22)
[2020-01-08] MEDS: CYANOCOBALAMIN 500 MCG TABLET (VITAMIN B-12) PO SCH (08:22)
[2020-01-08] MEDS: predniSONE 5 MG TAB PO SCH (08:22)
[2020-01-08] MEDS: CITALOPRAM 20 MG TAB PO SCH (08:22)
[2020-01-08] MEDS: CALCIUM 600MG + VIT D 400 IU TAB PO SCH (08:22)
[2020-01-08] MEDS: UMECLIDINIUM BROMIDE 62.5MCG/BLISTER 7 PUFFS/INHALER INH SCH (08:23)
[2020-01-08] MEDS ORDERED: FLUTICASONE/VILANTEROL 200/25MCG 14 PUFFS/INHALER INH SCH (09:00)
--- NOTE | 2020-01-08 11:32 | Discharge Summary ---
Date of Service January 08, 2020 Admission HPI Per Admitting Provider This pt is a 74 yo female with a h/o COPD on chronic O2 2LNC and BiPAP qhs, osteoporosis,DMII, CAD, AAA, nephrolithiasis, depression, lung CA s/p XRT, who presents after sustaining a mechanical fall with left hip pain. She reports she caught her toes on her O2 cord and tripped, landing on her left side. She reports crawling to her couch and then couldn't move further. SHe waited a few hours and then called her children when she knew they would be waking up for the day who then called an ambulance. She has abrasions on her left elbow and knee and pain in the left hip. Denies LOC or head trauma. No chest pain or SOB, no abd pain. She was given Fentanyl by EMS on the way in to the hospital which caused significant nausea. In the ER, she had multiple imaging studies and was found to have bilateral pelvic and sacral insufficiency fractures, and a left hip acetabular fracture. Her WBC count was mildly elevated at 13 on arrival and her HCO3 is chronically elevated, however she denies any recent cough, cold symptoms, no SOB over her usual, no fevers/chills/sweats.No diarrhea. SHe has been isolating herself for weeks due to COVID-19. She will be admitted for Orthopedic evaluation and pain management with likely need for rehab placement. Principal Diagnosis osteoporotic pelvic fractures Discharge Exam gen pleasant nad heent nc at mmm breathing unlabored no accessory muscles good effort skin no rashes no pallor or icterus Discharge Data Allergies Allergy/AdvReac Type Severity Reaction Status Date / Time house dust mite Allergy Severe Verified 01/06/20 11:05 tree and shrub pollen Allergy Severe Verified 01/06/20 11:05 Sulfa (Sulfonamide Allergy Intermediate hives Verified 01/06/20 11:05 Antibiotics) Consultations 01/06/20 12:41 ED Decision to Admit Stat 01/06/20 14:16 Consult Case Management - Discharge Planning Routine Consult Orthopedic Surgery Routine Ordered Studies 01/06/20 09:46 CT cervical spine wo con Stat CT head/brain wo con Stat 01/06/20 10:11 CT abd pelvis wo con Stat CT hip LT wo con Stat Hospital Course (1) Fall: This pt is a 74 yo female with a h/o COPD on chronic O2 2LNC and BiPAP qhs, osteoporosis,DMII, CAD, AAA, nephrolithiasis, depression, lung CA s/p XRT, who presents after sustaining a mechanical fall with left hip pain. She reports she caught her toes on her O2 cord and tripped, landing on her left side. She reports crawling to her couch and then couldn't move further. SHe waited a few hours and then called her children when she knew they would be waking up for the day who then called an ambulance. She has abrasions on her left elbow and knee and pain in the left hip. Denies LOC or head trauma. No chest pain or SOB, no abd pain. She was given Fentanyl by EMS on the way in to the hospital which caused significant nausea. In the ER, she had multiple imaging studies and was found to have bilateral pelvic and sacral insufficiency fractures, and a left hip acetabular fracture. Her WBC count was mildly elevated at 13 on arrival and her HCO3 is chronically elevated, however she denies any recent cough, cold symptoms, no SOB over her usual, no fevers/chills/sweats.No diarrhea. SHe has been isolating herself for weeks due to COVID-19. No signs or symptoms otherwise of infection She was admitted for Orthopedic evaluation and pain management with likely need for rehab placement. osteoporotic pelvic fractures: -consult Ortho appreciated-recommends nonsurgical conservative management, treatment for osteoporosis (asked for outpt rheum eval since she is already on a bisphosphonate), and can weight bear partially on the left lower extremity and begin physical [id number] with orthopedics in the office in 10 to [address] Gonzales or Dr. Brambila -ongoing PT/OT at [facility] -pain control with tylenol, ibuprofen prn, pt refuses opioids as they make her nauseated - but notes that overall pain under reasonable control -Labs are stable-no evidence of blood loss from pelvic fractures on CBC -Continue DVT prophylaxis with Lovenox until more ambulatory-perhaps 1 to 2 weeks (2) Closed fracture of left acetabulum: Left side, secondary to fall, as above (3) Bilateral sacral insufficiency fracture: as above (4) Inferior pubic ramus fracture: as above, bilateral Pelvis is stable on examination and orthopedics does not recommend any surgical intervention (5) Fracture of pubic ramus: as above, right side superior ramus (6) Abrasion of leg, left: clean and dress (7) Abrasion of elbow, left: clean and dress (8) Diabetes mellitus, type 2: A1c 6.4% (9) Anemia: chronic, stable at 10.4, normocyctic to borderline macrocytic Vitamin B12 level was borderline low at 241 in 08/2019 and folate was normal at 10 at that time -Continue vitamin B12 1000 mcg p.o. once daily Follow as an outpatient (10) CAD (coronary atherosclerotic disease): with h/o ?RI in 2014 had cath with no intervention No chest pain here, no ECG changes -continue ASA (11) Chronic respiratory failure with hypoxia and hypercapnia: continue continuous home O2 at 2L-at baseline CXR unchanged, with lung nodule -continue BiPAP qhs-pt has Trilogy at home and says she uses it but has no idea what her settings are -would benefit from having her home device at SNF (12) Tobacco use disorder: continues to smoke "every chance I get" -declines nicotine patch counseled on cessation previously - ongoing institutional stay during rehab will at least keep her cigarette free longer (13) Right middle lobe pulmonary nodule: Presumed CA-recently completed XRT no further treatment at this time (14) COPD (chronic obstructive pulmonary disease): severe continue formulary substitution for inhalers but increase Brio Ellipta to 200/25 1 puff once daily, Umeclidinium 1 puff once daily (home inhalers include Symbicort and Spiriva) Continue prednisone 5 mg daily-certainly this contributes to her osteoporosis, but severe COPD / requiring chronic steroids to be able to breathe continue O2 from home (15) Depression: stable, continue Celexa (16) Osteoporosis: WIth osteoporotic fractures after fall from standing height -continue Fosamax -consider Forteo or Prolia as outpt added on calcium and Vit D (17) DVT prophylaxis: Lovenox SQ, SCDs, TEDs-recommend continuing Lovenox after discharge to rehab for 2 weeks Dispo - stable for SNF Total Time Total Time Spent Total Time Spent (In Minutes): <30 Discharge Plan Discharge Items Patient Disposition: Transfer Correction Fac Reason For Visit: PELVIC FRACTURES Discharge Diagnosis: pelvic fractures Activity: Resume your previous activity Non-emergency contact: Primary Care Provider and Surgeon Call non-emergency contact if: you have any medication questions Follow-up/Referrals: Mary Hester, DO [Primary Care Provider] - Diet: Regular Addtl Attending Provider Instructions: pelvic fractures - ongoing DVT proph for 1-2 weeks (or longer - duration truly will be contingent on how well she is able to mobilize) -pain control - acetaminophen and ibuprofen prn -outpt rheum eval for osteoporosis (?does she need forteo/prolia type of escalation?) plan from orthopedic surgery consult: ASSESSMENT: A 74-year-old female with: 1. Bilateral sacral insufficiency fractures. 2. Acute fracture, bilateral inferior pubic rami. 3. Right superior pubic ramus fracture. 4. Acute nondisplaced fracture of left anterior wall of the acetabulum. PLAN: I discussed findings and treatment with her. I do feel that this fracture should be appropriately treated nonoperatively. Recommendation is partial weightbearing on the left lower extremity. She may be ambulatory with a walker and will begin physical therapy today. Upon discharge, she may follow up with [facility] to ensure fractures do heal. Fractures do represent osteoporotic fractures and she would benefit from further treatment and evaluation for osteoporosis. Orthopedics will sign off, please call with questions. Upon discharge, follow up 10-14 days with [facility] physician- Dr. Metcalf or Dr Gonzales Pending Studies at Discharge: No Stand-Alone Forms: My [facility] [email or web address] Skilled Items Patient informed of condition?: Yes DNR: No Discharge Level of Care: Skilled Communicable Disease: No Discharge Prognosis: Stable Lines: None Urinary Catheter: No Medications and DC Order Prescriptions: New enoxaparin 40 mg/0.4 mL Syringe 40 mg subcut Q24H Qty: 4 RF: 0 acetaminophen 500 mg tablet 500 mg PO Q6H PRN (Reason: pain) Qty: 30 RF: 0 Continued (DME) CPAP Supplies Misc See Rx Instructions .ROUTE .MEDSUPPLY Qty: 1 RF: 0 (DME) Manual Wheelchair Device See Rx Instructions .ROUTE .MEDSUPPLY Qty: 1 RF: 0 miscellaneous medical supply Misc See Rx Instructions MS .COMPLEX Qty: 1 RF: 0 fluticasone propionate [Flonase Allergy Relief] 50 mcg/actuation spray,suspension 1 sprays INTNAS DAILY PRN (Reason: sinus symptoms) Qty: 9.9 RF: 0 metformin 500 mg tablet 500 mg PO BID Qty: 180 RF: 1 albuterol sulfate [Ventolin HFA] 90 mcg/actuation HFA aerosol inhaler 2 puff INHALATION Q4H PRN (Reason: shortness of breath or wheezing) Qty: 18 RF: 5 citalopram 20 mg tablet 20 mg PO QAM Qty: 90 RF: 1 (DME) blood-glucose meter [Accu-Chek Padmini Plus Meter] Misc See Rx Instructions .ROUTE .MEDSUPPLY Qty: 1 RF: 0 (DME) blood sugar diagnostic [Accu-Chek Padmini Plus test strp] Strip See Rx Instructions .ROUTE .MEDSUPPLY Qty: 100 RF: 1 Symbicort 160-4.5 mcg/actuation HFA aerosol inhaler 2 puff INHALATION BID Qty: 10.2 RF: 2 levalbuterol HCl 0.63 mg/3 mL solution for nebulization 0.63 mg inhalation Q4H PRN (Reason: Shortness Of Breath) Qty: 15 RF: 0 (DME) Oxygen Home Liters Per Minute See Dose Instructions .ROUTE .MEDSUPPLY Qty: 1 RF: 0 (DME) CPAP Supplies Misc See Rx Instructions .ROUTE .MEDSUPPLY Qty: 1 RF: 0 alendronate 70 mg tablet 70 mg PO VALLE RF: 0 aspirin [Aspir-81] 81 mg Tablet,Delayed Release (Dr/Ec) 81 mg PO HS RF: 0 zinc 50 mg Tablet 50 mg PO QAM RF: 0 Spiriva Respimat 2.5 mcg/actuation Mist 2 puff INHALATION QAM RF: 0 ibuprofen 200 mg Tablet 200 mg PO Q6H PRN (Reason: Pain) RF: 0 Cranberry 4200mg 4,200 mg PO QAM RF: 0 prednisone 5 mg tablet 5 mg PO QAM RF: 0 cyanocobalamin (vitamin B-12) 1,000 mcg capsule 1,000 mcg PO QAM RF: 0 Discharge Orders: Discharge Order (Routine); Ordered 01/08/20 Ordered By: Santino Cowan/Other Patient Handouts: ED Fx Pelvis Admission Data Admit Date/Time: 01/06/20 13:30 Attending Provider: Santino Mcbride Admit Provider: Tran Coates Primary Care Provider: Mary Hester Other Providers: Tran Coates ; Lincoski,Claudio J Other Interventions: Discharge Summary Assessment (RN) Last Done: 01/08/20 10:34 Coding Level of Care Code D/C Day Management <30 mins Diagnoses Fall W19.XXXA Encounter type: initial encounter Closed fracture of left acetabulum S32.415A Encounter type: initial encounter Fracture alignment: nondisplaced Sublocation of acetabulum: anterior wall Bilateral sacral insufficiency fracture M84.48XA Encounter type: initial encounter Inferior pubic ramus fracture S32.599A Encounter type: initial encounter Fracture type: closed Laterality: unspecified laterality Fracture of pubic ramus S32.591A Encounter type: initial encounter Fracture type: closed Laterality: right Abrasion of leg, left S80.812A Encounter type: initial encounter Abrasion of elbow, left S50.312A Encounter type: initial encounter Diabetes mellitus, type 2 E11.9 Anemia D64.9 CAD (coronary atherosclerotic disease) I25.10 Chronic respiratory failure with hypoxia and hypercapnia J96.11; J96.12 Tobacco use disorder F17.200 Right middle lobe pulmonary nodule R91.1 COPD (chronic obstructive pulmonary disease) J44.9 Depression F32.9 Osteoporosis M81.0 DVT prophylaxis Z29.9
== END 2020-01-08 14:12 | DRG 543 ==
LOC: ED 09:36 → INTOOBSV 13:30 → SUATTDRO 13:30 → 3E 13:30

== ENCOUNTER 2020-02-11 14:12 | Observation (INO) ==
[2020-02-11] MEDS ORDERED: SODIUM CHLORIDE 0.9% 1000ML 500 ML IV ONE (15:18)
[2020-02-11] MEDS ORDERED: ALBUTEROL HFA 8 GM INHALER INH ONE (15:19)
--- NOTE | 2020-02-11 15:25 | XRay Report ---
XR chest 1V portable HISTORY: 74 years-old Female Chest Pain acute atypical chest pain status post fall. Acute shortness of breath COMPARISON: Chest radiograph 01/06/2020, PET CT 09/18/2019. TECHNIQUE: Portable AP view of the chest FINDINGS: Cardiac mediastinal and hilar silhouettes are unchanged. Calcified plaque the thoracic aortic arch. S evere emphysema with chronic fibrotic changes. Right middle lobe solid nodule is better seen on adam rison PET/CT. There is no pneumothorax, pleural effusion, overt pulmonary edema or airspace consolida tion typical for pneumonia. Degenerative changes of the shoulders and spine. Sigmoidal thoracolumbar scoliosis. IMPRESSION: 1. No acute process. 2. Severe emphysema with chronic fibrotic changes. ACT 112: Negative or not required by law. The above report was generated using voice recognition software. It may contain grammatical, syntax o r spelling errors. Electronically signed by: Miguel Palmer M.D. 02/11/2020 3:24 PM
--- NOTE | 2020-02-11 15:41 | Emergency Department Note ---
History of Present Illness General Chief complaint: Shortness of Breath/Dyspnea Stated complaint: SOB, WEAKNESS Time Seen by Provider: 02/11/20 14:29 Source: patient, family, RN notes reviewed and old records reviewed Mode of arrival: wheelchair Limitations: no limitations History of Present Illness Provider complaint: Altered mental status Onset (ago): week(s) 1 Location: head Radiation: non-radiation Maximum Pain Intensity: 5 Current Pain Intensity: 5 Quality: + burning Relieved By: + immobilization Exacerbated By: + movement Associated symptoms: + confusion, + shortness of breath and + weakness; no chest pain, no cough, no fever/chills, no headaches and no nausea/vomiting Treatments prior to arrival: none This is a 74-year-old female who was admitted to [facility] and then subsequently discharged to a rehab facility. The family and patient report that she was at the rehab facility for approximately 10 days and then was discharged home. Since arriving at home the patient really has not been able to move off the couch due to pelvic pain. The family is also concerned the patient has an altered mental status and is short of breath. She is on oxygen 2 L at home. Home Medications Home Medications Medication Instructions Recorded Confirmed Type Spiriva Respimat 2 puff INHALATION QAM 06/29/18 02/11/20 History aspirin [Aspir-81] 81 mg PO HS 06/29/18 02/11/20 History Oxygen Home #1 ea 05/01/19 11/07/19 History miscellaneous medical supply #1 ea 10/17/19 11/07/19 Rx miscellaneous medical supply #1 ea 10/29/19 11/07/19 Rx Wheelchair (Manual or Powered) #1 ea 11/10/19 Rx blood sugar diagnostic #100 ea 01/01/20 Rx blood-glucose meter #1 ea 01/01/20 Rx budesonide-formoterol HFA 160 2 puff INHALATION BID #10.2 gm 01/02/20 02/11/20 Rx mcg-4.5 mcg/actuation aerosol inhaler cyanocobalamin (vitamin B-12) 1,000 mcg PO QAM 01/06/20 02/11/20 History ibuprofen 200 - 400 mg PO Q6H PRN 01/06/20 02/11/20 History prednisone 5 mg PO QAM 01/06/20 02/11/20 History [id number] 1 tab PO BID #60 tab 01/08/20 02/11/20 Rx [Caltrate 600-D Plus Minerals] albuterol sulfate [Ventolin HFA] 2 puff INHALATION Q4H PRN 02/11/20 02/11/20 History citalopram [Celexa] 20 mg PO QAM 02/11/20 02/11/20 History ergocalciferol (vitamin D2) 50,000 unit PO VALLE 02/11/20 02/11/20 History metformin [Glucophage] 500 mg PO BID 02/11/20 02/11/20 History tramadol [Ultram] 25 mg PO TID PRN 02/11/20 02/11/20 History Allergies Allergy/AdvReac Type Severity Reaction Status Date / Time house dust mite Allergy Intermediate Unknown Verified 02/11/20 19:43 Sulfa (Sulfonamide Allergy Intermediate hives Verified 02/11/20 15:33 Antibiotics) tree and shrub pollen Allergy Intermediate Unknown Verified 02/11/20 19:43 Past Med/Surg History Medical History Acute exacerbation of chronic obstructive pulmonary disease (COPD) (Resolved) Acute non-ST segment elevation myocardial infarction (NSTEMI) following previous myocardial infarction (Inactive) Age related osteoporosis (Inactive) Anxiety Bursitis of ankle Classic migraine with aura (Inactive) Coronary artery disease (Inactive) Current use of steroid medication F/U DR WALLACE Depression Diabetes mellitus, type 2 Diverticulosis (Inactive) Hearing loss, sensorineural (Inactive) History of colon polyps Iron deficiency anemia Normocytic anemia On home oxygen therapy 3/L/MIN NC Osteoarthritis Osteoporosis Right middle lobe pulmonary nodule (Chronic) SOB (shortness of breath) Type II diabetes mellitus Vitamin B12 deficiency (dietary) anemia Weight loss, non-intentional Surgical History History of bunionectomy of right great toe History of cardiac cath 2014-NO STENTS NEEDED [facility] History of carpal tunnel release RIGHT History of cataract surgery Bilateral History of colonoscopy History of hysterectomy OVARIES REMAIN History of tonsillectomy Family History Mother , in her 70s Emphysema lung Father , 68yo Myocardial infarction Brother No family history of cancer Brother No family history of cancer Brother No family history of cancer Brother No family history of cancer Sister Alzheimer disease Sister No family history of cancer Daughter No problems noted. Daughter No problems noted. 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 Feels Safe at Home: Yes Smoking Status: Current every day smoker Tobacco Type: cigarettes ; Second Hand Exposure: No ; Hx Alcohol Use: No Hx Substance Use: No Childhood Exposure to Second-Hand Smoke: Yes Diet Comment: regular caffeine: No during the past year weight has: decreased > 10 lbs Dental Care, Regularly: No Physical Activity Frequency: Does not Exercise Seatbelt Use: always Sunscreen Use: No Review of Systems A total of 10 systems reviewed and were otherwise negative Physical Exam Vital Signs Vital Signs - 24 hr 02/11/20 14:13 02/11/20 14:26 02/11/20 14:51 Temperature 36.8 C Temperature Source Oral Pulse Rate 80 78 Pulse Rate from SpO2 Sensor 82 Pulse Rhythm Regular Pulse Strength Normal Respiratory Rate 20 20 Respiratory Effort / Characteristics Non-Labored Spontaneous Non-Labored Spontaneous Respiratory Depth Normal Normal Respiratory Pattern Regular Regular Blood Pressure 131/74 Blood Pressure Mean 93 Blood Pressure Position Sitting Pulse Oximetry 100 88 L 90 Oxygen Delivery Method Room Air Nasal Cannula Nasal Cannula Oxygen Flow Rate 3 3 Sepsis Recent Fever Within 48 Hours No Sepsis Action Taken by Nursing No Action Required 02/11/20 15:07 02/11/20 15:30 02/11/20 16:00 Temperature Temperature Source Pulse Rate 74 68 71 Pulse Rate from SpO2 Sensor 74 68 71 Pulse Rhythm Pulse Strength Respiratory Rate 18 26 H 23 Respiratory Effort / Characteristics Respiratory Depth Respiratory Pattern Blood Pressure 119/65 117/69 125/67 Blood Pressure Mean 81 90 75 Blood Pressure Position Pulse Oximetry 90 95 92 Oxygen Delivery Method Nasal Cannula Nasal Cannula Nasal Cannula Oxygen Flow Rate 3 3 3 Sepsis Recent Fever Within 48 Hours Sepsis Action Taken by Nursing 02/11/20 16:30 02/11/20 17:00 02/11/20 17:30 Temperature Temperature Source Pulse Rate 67 70 72 Pulse Rate from SpO2 Sensor 69 68 Pulse Rhythm Pulse Strength Respiratory Rate 19 18 28 H Respiratory Effort / Characteristics Respiratory Depth Respiratory Pattern Blood Pressure 153/73 H 134/65 130/67 Blood Pressure Mean 96 80 79 Blood Pressure Position Pulse Oximetry 93 89 L 87 L Oxygen Delivery Method Nasal Cannula Nasal Cannula Nasal Cannula Oxygen Flow Rate 3 2 3 Sepsis Recent Fever Within 48 Hours Sepsis Action Taken by Nursing 02/11/20 18:00 Temperature Temperature Source Pulse Rate 72 Pulse Rate from SpO2 Sensor 71 Pulse Rhythm Pulse Strength Respiratory Rate 20 Respiratory Effort / Characteristics Respiratory Depth Respiratory Pattern Blood Pressure 125/74 Blood Pressure Mean 96 Blood Pressure Position Pulse Oximetry 85 L Oxygen Delivery Method Nasal Cannula Oxygen Flow Rate 3 Sepsis Recent Fever Within 48 Hours Sepsis Action Taken by Nursing VITAL SIGNS - Vital signs and nursing notes were reviewed. GENERAL - 74-year-old female appearing cachectic who is in no acute distress. Communicates well with provider and answers questions appropriately. SKIN - Without rashes. HEAD - NC/AT. EYES - PERRL with EOMI bilaterally. Sclera anicteric. Palpebral conjunctiva pink and moist with no injection noted. EARS - No deformities of external structures noted on gross examination bilaterally. No pain elicited with palpation of the tragus bilaterally. External auditory canals without discharge or otorrhea. Tympanic membranes pearly stevens without retraction or bulging. No fluid or purulent material visualized behind the TM. Handle of malleus, umbo, cone of light, pars tensa/flaccid all easily visualized. NOSE - Midline and without cyanosis. No epistaxis or purulent drainage noted. Septum midline without deviation or septal hematoma noted. MOUTH/OROPHARYNX - Without perioral cyanosis. Buccal mucosa pink and moist and without leukoplakia. Tongue midline with equal elevation of palate bilaterally. No tonsillar hypertrophy, erythema, or exudates noted. dentition noted. NECK - Neck with FROM. Supple to palpation. lymphadenopathy noted. No nuchal rigidity. LUNGS - Chest wall symmetric without accessory muscle use, intercostals retractions, or central cyanosis. Distant breath sounds CTA B/L. No wheezes, rales, or rhonchi appreciated. CARDIAC - RRR with S1/S2. No murmur, rubs, or gallops appreciated. ABDOMEN - Abdominal contour without pulsations or visible masses. BS normoactive all four quadrants. No tenderness, palpable masses, hepatosplen omegaly, or ascites noted. EXTREMITIES - No clubbing or peripheral cyanosis. No pretibial edema present. +3/5 radial, posterior tibial, and dorsalis pedis pulses palpated throughout. +5/5 strength noted in UE/LE bilaterally. NEUROLOGIC - Cranial nerves II through XII grossly intact. Sensory intact to light touch throughout. Patellar reflexes +2/4. PSYCH - A&Ox3 and cooperates fully with examiner. Pt is very pleasant and interacts well with examiner. Course Administered Medications Albuterol (Ventolin Hfa) 2 puffs INH Q4H PRN; Protocol PRN Reason: Shortness Of Breath Or Wheezing Stop: 03/12/20 19:29 Last Admin: 02/12/20 20:15 Dose: 2 puffs Documented by: [id number] Citalopram Hydrobromide (Celexa) 20 mg PO [facility] Stop: 03/13/20 08:59 Last Admin: 02/12/20 13:57 Dose: 20 mg Documented by: [id number] Clopidogrel Bisulfate (Plavix) 75 mg PO [facility] Stop: 03/13/20 11:44 Last Admin: 02/12/20 14:25 Dose: 75 mg Documented by: [id number] Cyanocobalamin (Vitamin B-12) 1,000 [facility] Stop: 03/13/20 08:59 Last Admin: 02/12/20 13:57 Dose: 1,000 mcg Documented by: [id number] Enoxaparin Sodium (Lovenox) 30 mg SQ Q24H [facility] Stop: 03/12/20 21:44 Last Admin: 02/12/20 21:13 Dose: 30 mg Documented by: [id number] Admin: 02/11/20 22:19 Dose: 30 mg Documented by: [id number] Ergocalciferol (Vitamin D2) 50,000 units PO Valle@2100 [facility] Stop: 03/12/20 20:59 Last Admin: 02/11/20 21:02 Dose: 50,000 units Documented by: [id number] Fluticasone/Vilanterol (Breo Ellipta 100/25 Mcg Inh) 1 puffs INH DAILY [facility]; Protocol Stop: 03/13/20 08:59 Last Admin: 02/12/20 11:18 Dose: 1 puffs Documented by: [id number] Gadobutrol (Gadavist 65ml) 3.9 ml IV ONCE PRN PRN Reason: Interaction Checking Stop: 02/16/20 00:49 Last Admin: 02/12/20 00:29 Dose: 3.9 ml Documented by: [id number] Insulin Aspart (Novolog Flexpen) 0 units SC ACHS [facility] Stop: 03/13/20 11:29 Last Admin: 02/12/20 21:12 Dose: 2 units Documented by: [id number] Cosigned by: [id number] Admin: 02/12/20 17:49 Dose: Not Given Documented by: [id number] Cosigned by: [id number] Admin: 02/12/20 13:00 Dose: Not Given Documented by: [id number] Cosigned by: [id number] Ioversol (Optiray 320 125ml) 120 ml IV ONCE PRN PRN Reason: Interaction Checking Stop: 02/16/20 09:44 Last Admin: 02/12/20 09:46 Dose: 120 ml Documented by: [id number] Multivitamins/Minerals (Caltrate Plus) 1 tab PO BID [facility] Stop: 03/12/20 20:59 Last Admin: 02/12/20 21:13 Dose: 1 tab Documented by: [id number] Admin: 02/12/20 11:17 Dose: Not Given Documented by: [id number] Admin: 02/11/20 21:01 Dose: 1 tab Documented by: [id number] Prednisone (Prednisone) 5 mg PO QAM [facility] Stop: 03/13/20 08:59 Last Admin: 02/12/20 13:57 Dose: 5 mg Documented by: [id number] Tramadol HCl (Ultram) 25 mg PO TID PRN PRN Reason: Pain Stop: 03/12/20 19:29 Last Admin: 02/12/20 14:02 Dose: 25 mg Documented by: [id number] Umeclidinium [place] (Incruse Ellipta) 1 puffs INH QAM [facility] Stop: 03/13/20 08:59 Last Admin: 02/12/20 11:18 Dose: 1 puffs Documented by: [id number] Discontinued Medications Albuterol (Ventolin Hfa) 2 puffs INH NOW ONE Stop: 02/11/20 15:20 Last Admin: 02/11/20 15:54 Dose: 2 puffs Documented by: [id number] Aspirin (Ecotrin Ectab) 81 mg PO HS [facility] Stop: 03/12/20 20:59 Last Admin: 02/11/20 21:01 Dose: 81 mg Documented by: [id number] Enoxaparin Sodium (Lovenox) 30 mg SQ Q24H [facility] Stop: 03/12/20 20:59 Last Admin: 02/12/20 09:32 Dose: Not Given Documented by: [id number] Sodium Chloride (Nss 1000ml) 500 mls @ 999 mls/hr IV .Q31M ONE Stop: 02/11/20 15:48 Last Infusion: 02/11/20 16:59 Dose: 0 mls/hr Documented by: [id number] Admin: 02/11/20 15:53 Dose: 999 mls/hr Documented by: [id number] Magnesium Sulfate/Dextrose (Magnesium Sulfate / D5w) 1 gm in 100 mls @ 50 mls/hr IV ONE ONE Stop: 02/11/20 18:41 Last Infusion: 02/11/20 18:28 Dose: 0 mls/hr Documented by: [id number] Admin: 02/11/20 17:08 Dose: 50 mls/hr Documented by: [id number] Lisinopril (Zestril) 5 mg PO NOW ONE Stop: 02/12/20 11:40 Last Admin: 02/12/20 14:25 Dose: 5 mg Documented by: [id number] Metformin HCl (Glucophage) 500 mg PO BID [facility] Stop: 03/12/20 20:59 Last Admin: 02/12/20 09:31 Dose: Not Given Documented by: [id number] Admin: 02/11/20 21:00 Dose: 500 mg Documented by: [id number] Methylprednisolone (Solumedrol) 125 mg IV NOW STA Stop: 02/11/20 16:43 Last Admin: 02/11/20 17:08 Dose: 125 mg Documented by: [id number] Medical Decision Making Differential Diagnosis Reactive airway disease, pneumonia, pneumothorax, COPD, CHF, infections, cardiac ischemia, pulmonary embolism, musculoskeletal, gastrointestinal, as well as other pathologies. Medical Records Attestation: I reviewed the patient's medical records. Home Medications Current Medication List: was personally reviewed by me Laboratory Data Attestation: I reviewed the patient's lab results. Result diagrams: 02/12/20 10:55 02/11/20 15:20 Lab Results 0502/11/20 02/11/20 Range/Units 15:20 15:20 15:20 WBC 9.02 (4.8-10.8) K/uL RBC 3.72 L (4.2-5.4) M/uL Hgb 11.3 L (12.0-16.0) g/dL POC Hgb (12.0-16.0) g/dl Hct 38.3 (37-47) % POC Hct (37-47) % MCV 103.0 H (80-100) fL MCH 30.4 (25-34) pg MCHC 29.5 L (32-36) g/dL Plt Count 324 (130-400) K/uL Immature Gran % (Auto) 0.1 % Neut % (Auto) 79.3 % Lymph % (Auto) 10.6 % Sublette % (Auto) 9.1 % Eos % (Auto) 0.7 % Baso % (Auto) 0.2 % Immature Gran # (Auto) 0.01 (0.00-0.02) K/uL Neut # (Auto) 7.15 H (1.4-6.5) K/uL Lymph # (Auto) 0.96 L (1.2-3.4) K/uL [place]lette # (Auto) 0.82 H (0.11-0.59) K/uL Eos # (Auto) 0.06 (0-0.5) K/uL Baso # (Auto) 0.02 (0-0.2) K/uL ESR 9 (0-21) mm/hr PT 10.4 (9.0-12.0) Seconds INR 1.0 (0.9-1.1) APTT 26.5 (21.0-31.0) Seconds PTT Ratio 0.9 POC Sodium (135-144) mmol/L Sodium (136-145) mmol/L POC Potassium (3.3-5.0) mmol/L Potassium (3.5-5.1) mmol/L POC Chloride (101-112) mmol/L Chloride (98-107) mmol/L Carbon Dioxide (21-32) mmol/L POC Total CO2 (24-31) mmol/L Anion Gap (3-11) POC Anion Gap (16-25) mmol/L POC BUN (7-18) mg/dl BUN (7-18) mg/dl Creatinine (0.6-1.2) mg/dl POC Creatinine (0.6-1.3) mg/dl Est Cr Clr Drug Dosing Est GFR ( Amer) Est GFR (Non-Af Amer) BUN/Creatinine Ratio (10-20) Glucose (70-99) mg/dl POC Glucose (other) (70-99) mg/dl Calcium (8.5-10.1) mg/dl POC Ioniz Calcium Anne Marie (1.12-1.32) mmol/l Ferritin (8-388) ng/ml Total Bilirubin (0.2-1) mg/dl AST (15-37) U/L ALT (12-78) U/L Alkaline Phosphatase (45-117) U/L Lactate Dehydrogenase (84-246) U/L Total Creatine Kinase (26-192) U/L CK-MB (CK-2) (0.5-3.6) ng/ml CK/CKMB % Calc (0-3.0) Troponin I (0-0.045) ng/ml C-Reactive Protein (0-0.29) mg/dl Total Protein (6.4-8.2) gm/dl Albumin (3.4-5.0) gm/dl Globulin (2.5-4.0) gm/dl Albumin/Globulin Ratio (0.9-2) Lipase (73-393) U/L 02/11/20 02/11/20 02/11/20 Range/Units 15:20 15:20 15:32 WBC (4.8-10.8) K/uL RBC (4.2-5.4) M/uL Hgb (12.0-16.0) g/dL POC Hgb 12.9 (12.0-16.0) g/dl Hct (37-47) % POC Hct 38 (37-47) % MCV (80-100) fL MCH (25-34) pg MCHC (32-36) g/dL Plt Count (130-400) K/uL Immature Gran % (Auto) % Neut % (Auto) % Lymph % (Auto) % [place]lette % (Auto) % Eos % (Auto) % Baso % (Auto) % Immature Gran # (Auto) (0.00-0.02) K/uL Neut # (Auto) (1.4-6.5) K/uL Lymph # (Auto) (1.2-3.4) K/uL [place]lette # (Auto) (0.11-0.59) K/uL Eos # (Auto) (0-0.5) K/uL Baso # (Auto) (0-0.2) K/uL ESR (0-21) mm/hr PT (9.0-12.0) Seconds INR (0.9-1.1) APTT (21.0-31.0) Seconds PTT Ratio POC Sodium 133 L (135-144) mmol/L Sodium 135 L (136-145) mmol/L POC Potassium 4.2 (3.3-5.0) mmol/L Potassium 4.1 (3.5-5.1) mmol/L POC Chloride 82 L (101-112) mmol/L Chloride 88 L (98-107) mmol/L Carbon Dioxide 45 H* (21-32) mmol/L POC Total CO2 > 40 H* (24-31) mmol/L Anion Gap 2.0 L (3-11) POC Anion Gap 13.0 L (16-25) mmol/L POC BUN 28 H (7-18) mg/dl BUN 28 H (7-18) mg/dl Creatinine 0.47 L (0.6-1.2) mg/dl POC Creatinine 0.7 (0.6-1.3) mg/dl Est Cr Clr Drug Dosing Not Reportable Est GFR ( Amer) 112.0 Est GFR (Non-Af Amer) 96.6 BUN/Creatinine Ratio 59.8 H (10-20) Glucose 121 H (70-99) mg/dl POC Glucose (other) 125 H (70-99) mg/dl Calcium 9.6 (8.5-10.1) mg/dl POC Ioniz Calcium Anne Marie 1.21 (1.12-1.32) mmol/l Ferritin 14.9 (8-388) ng/ml Total Bilirubin 0.3 (0.2-1) mg/dl AST 13 L (15-37) U/L ALT 24 (12-78) U/L Alkaline Phosphatase 130 H (45-117) U/L Lactate Dehydrogenase 175 (84-246) U/L Total Creatine Kinase 42 (26-192) U/L CK-MB (CK-2) 1.7 (0.5-3.6) ng/ml CK/CKMB % Calc 4.0 H (0-3.0) Troponin I < 0.015 (0-0.045) ng/ml C-Reactive Protein < 0.29 (0-0.29) mg/dl Total Protein 7.1 (6.4-8.2) gm/dl Albumin 3.5 (3.4-5.0) gm/dl Globulin 3.6 (2.5-4.0) gm/dl Albumin/Globulin Ratio 1.0 (0.9-2) Lipase 75 (73-393) U/L Imaging Data Radiologist's Impression: [facility], [place] [phone] XRay Report Patient: LISE GARCIA AAdmit Date: 02/11/20 MR#: [id number]: [address] Acct ID:[id number]: Date: [address] [place] [address] Zip: [place] [address] Age: 74Location: ED Sex: F Room/Bed: Att Phy:Diagnosis: SOB, WEAKNESS Bev Phy: Mary Hester, DOService Date: 02/11/20 Fam Phy:Interpreting Phy: Blu Palmer Admit Phy: Ordering Phy: Mikel Gibson MD cc: ~ XR chest 1V portable HISTORY: 74 years-old Female Chest Pain acute atypical chest pain status post fall. Acute shortness of breath COMPARISON: Chest radiograph 01/06/2020, PET CT 09/18/2019. TECHNIQUE: Portable AP view of the chest FINDINGS: Cardiac mediastinal and hilar silhouettes are unchanged. Calcified plaque the thoracic aortic arch. Severe emphysema with chronic fibrotic changes. Right middle lobe solid nodule is better seen on comparison PET/CT. There is no pne umothorax, pleural effusion, overt pulmonary edema or airspace consolidation typical for pneumonia. Degenerative changes of the shoulders and spine. Sigmoidal thoracolumbar scoliosis. IMPRESSION: 1. No acute process. 2. Severe emphysema with chronic fibrotic changes. ACT 112: Negative or not required by law. The above report was generated using voice recognition software. It may contain grammatical, syntax or spelling errors. Electronically signed by: Miguel Palmer M.D. 02/11/2020 3:24 PM Dictated: 02/11/20 1522 Transcribed: 02/11/20 1522 [phone] Scan Report Patient: LISE GARCIA AAdmit Date: 02/11/20 MR#: [id number]: [address] Acct ID:[id number]: [facility] Zip: [place] [address] Age: 74Location: ED Sex: F Room/Bed: Att Phy:Diagnosis: SOB, WEAKNESS Bev Phy: Mary Hester, DOService Date: 02/11/20 Fam Phy:Interpreting Phy: Blu Palmer Admit Phy: Ordering Phy: Mikel Gibson MD cc: ~ CT head/brain wo con CLINICAL HISTORY: 74 years-old Female with Pt c/o AMS. Acutely altered mental status TECHNIQUE: Multiple axial CT images of the head were obtained without contrast. A dose lowering technique was utilized adhering to the principles of ALARA. CT DOSE: 537.48 mGy.cm COMPARISON: Head CT 01/06/2020. FINDINGS: No acute intracranial hemorrhage, midline shift, intracranial mass, hydrocephalus, or abnormal extra-axial collection. Ill-defined areas of decreased attenuation noted involving the mid aspects of the bilateral cere bellar hemispheres which appears new from prior. Mild patchy white matter hypodensities suggest chronic microvascular ischemic disease. There is suggestion of a remote lacunar infarct of the left lentiform nucleus. The calvarium is intact. Mild leftward bowing and spurring of the nasal septum. Right dulce maria bullosa. Prior bilateral cataract repair. The paranasal sinuses, mastoid air cells, and middle ear cavities are clear. IMPRESSION: 1. Ill-defined decreased attenuation involves the mid aspects of the bilateral cerebellar hemispheres which appears new from 01/06/2020. These findings may be on an artifactual basis however if there is clinical concern for acute or subacute posterior circulation infarct(s), follow-up brain MRI may be considered. 2. No acute intracranial hemorrhage or midline shift. 3. Suggestion of chronic microvascular ischemic disease. ACT 112: Negative or not required by law. The above report was generated using voice recognition software. It may contain grammatical, syntax or spelling errors. Electronically signed by: Miguel Palmer M.D. 02/11/2020 4:22 PM Dictated: 02/11/201613 Transcribed: 02/11/20 1614 [place], [place] [phone] CT Scan Report Patient: LISE GARCIA AAdmit Date: 02/11/20 MR#: [id number]: [address] Acct ID:[id number]: [facility] Zip: [place] [address] Age: 74Location: ED Sex: F Room/Bed: Att Phy:Diagnosis: SOB, WEAKNESS Bev Phy: Mary Hester, DOService Date: 02/11/20 Fam Phy:Interpreting Phy: Blu Palmer Admit Phy: Ordering Phy: Mikel Gibson MD cc: ~ CT pelvis wo con HISTORY: 74 years-old Female Pt c/o multiple hip fractures acute pelvic pain with reported hip fractures COMPARISON: CT left hip, CT abdomen and pelvis 01/06/2020 TECHNIQUE: Multiple axial CT images of the pelvis were obtained without the use of IV contrast. A dose lowering technique was used consistent with the principals of ALARA. FINDINGS: Extensive calcified plaque the abdominal aorta and iliac arteries. Fusiform ectasia of the distal abdominal aorta, 2.8 cm with fusiform dilation of the right common iliac artery, 1.7 cm. Partially imaged moderate gallbladder distention. 5 mm nonobstructing calculus of the inferior pole right kidney. Probable cyst of the inferior pole right kidney is redemonstrated, 2.4 cm. Mild urothelial thickening and renal pelvis. Moderate fecal retention. There is mild generalized body wall edema. Tiny fat filled periumbilical hernia. Subacute left-sided sacral insufficiency fracture with healing periostitis extends along the entirety of the sacrum longitudinally and craniocaudal distri bution paralleling the left SI joint. Healing subacute nondisplaced fracture involves the anterior wall of the left acetabulum. Healing displaced subacute fracture involves the left inferior pubic ramus. Healing subacute nondisplaced fracture of the right inferior pubic ramus. There is progressive fragmentation with central lucency of the comminuted right superior pubic ramus/pubic body with mild surrounding healing periostitis. Serpiginous areas of peripheral sclerosis. Moderate osteoarthritis of the bilateral hips. No new acute fracture or subluxation. There is no avascular necrosis. IMPRESSION: 1. Progressive fragmentation and displacement of the subacute comminuted right superior pubic ramus/pubic body fracture. There is mild surrounding healing callus formation. 2. Additional healing subacute fractures with unchanged alignment from comparison are noted involving the left sacrum, anterior wall left acetabulum and bilateral inferior pubic rami. 3. Nonobstructing right nephrolithiasis. ACT 112: Negative or not required by law. The above report was generated using voice recognition software. It may contain grammatical, syntax or spelling errors. Electronically signed by: Miguel Palmer M.D. 02/11/2020 4:33 PM Dictated: 02/11/20 162 Transcribed: 02/11/20 162 ECG Data Attestation: I personally reviewed and interpreted this ECG as follows: Indication: + SOB/dyspnea Rate (beats per minute): 73 Rhythm: + normal sinus ECG Intervals/blocks: + Normal QT-c (405) ECG [place]: + Normal ECG ST segments: no ST depression and no ST elevation ECG Findings: + Q waves (Septal) Comparison ECG Date: from (01/06/2020) Change: no significant change Blood Pressure Blood Pressure Findings: Elevated blood pressure Blood Pressure Disposition: elevated BP felt to be situational MDM Narrative This is a 74-year-old female who presents emergency department complaining of shortness of breath. Patient's family is also confused that she is confused and her pain is out of control. She has not moved from her couch since she arrived at home. She has been taking 1 tramadol a day which could be contributing to her altered mental status. CAT scan of the head is concerning for cerebellar lesion CAT scan of the pelvis reconfirmed all of her pelvic fractures. She is requiring more oxygen here and was given breathing treatments. Patient was seen and evaluated as above in room A9. Review was performed of nursing notes and vital signs. I did review pertinent previous visits and patient history. After obtaining a thorough history and physical examination the above work up was performed. An order was placed for continuous cardiac monitoring. The monitor shows a rate of 66 with Normal Sinus rhythm. The patient was evaluated during the global COVID-19 pandemic, and that diagnosis was suspected/considered upon their initial presentation. Their evaluation, treatment and testing was consistent with current guidelines for patients who present with complaints or symptoms that may be related to COVID- 19. Impression & Plan Hypoxia, COPD (chronic obstructive pulmonary disease), Closed fracture of left acetabulum, Inferior pubic ramus fracture, Bilateral fracture of pubic rami Discharge Plan Visit Data *Final* Discharge Date/Time: 02/11/20 18:42 Chief Complaint: Shortness of Breath/Dyspnea Stated Complaint: SOB, WEAKNESS ED Provider: Mikel Gibson Discharge Problem: Hypoxia, COPD (chronic obstructive pulmonary disease), Closed fracture of left acetabulum, Inferior pubic ramus fracture, Bilateral fracture of pubic rami Patient Disposition: Admitted As Inpatient Discharge Instructions Interventions: ED Discharge Assessment Last Done: 02/11/20 18:42 Discharge Problem: COPD (chronic obstructive pulmonary disease) Qualifiers: COPD type: unspecified COPD Qualified Code(s): J44.9 - Chronic obstructive pulmonary disease, unspecified Closed fracture of left acetabulum Qualifiers: Encounter type: sequela Sublocation of acetabulum: unspecified portion of acetabulum Fracture alignment: nondisplaced Qualified Code(s): S32.402S - Unspecified fracture of left acetabulum, sequela Inferior pubic ramus fracture Qualifiers: Encounter type: sequela Fracture type: closed Laterality: unspecified laterality Qualified Code(s): S32.599S - Other specified fracture of unspecified pubis, sequela Bilateral fracture of pubic rami Qualifiers: Encounter type: initial encounter Fracture type: closed Qualified Code(s): S32.591A - Other specified fracture of right pubis, initial encounter for closed fracture
[2020-02-11 15:46] LABS: iSTAT Blood Urea Nitrogen 28 mg/dl (7-18); iSTAT Carbon Dioxide > 40 mmol/L (24-31); iSTAT Chloride 82 mmol/L (101-112); iSTAT Creatinine 0.7 mg/dl (0.6-1.3); iSTAT Glucose 125 mg/dl (70-99); iSTAT Hematocrit 38 % (37-47); iSTAT Hemoglobin 12.9 g/dl (12.0-16.0); iSTAT Ionized Calcium 1.21 mmol/l (1.12-1.32); iSTAT Potassium 4.2 mmol/L (3.3-5.0); iSTAT Sodium 133 mmol/L (135-144)
[2020-02-11 15:52] LABS: Partial Thromboplastin Ratio 0.9; Partial Thromboplastin Time 26.5 Seconds (21.0-31.0); Prothrombin Time 10.4 Seconds (9.0-12.0)
[2020-02-11 16:20] LABS: Basophils # (auto) 0.02 K/uL (0-0.2); Basophils % (auto) 0.2 %; Eosinophils # (auto) 0.06 K/uL (0-0.5); Eosinophils % (auto) 0.7 %; Hematocrit (blood only) 38.3 % (37-47); Hemoglobin 11.3 g/dL (12.0-16.0); Immature Granulocytes # (auto) 0.01 K/uL (0.00-0.02); Immature Granulocytes % (auto) 0.1 %; Lymphocytes # (auto) 0.96 K/uL (1.2-3.4); Lymphocytes % (auto) 10.6 %; Mean Corpuscular Hemoglobin 30.4 pg (25-34); Mean Corpuscular Hgb Conc 29.5 g/dL (32-36); Monocytes # (auto) 0.82 K/uL (0.11-0.59); Monocytes % (auto) 9.1 %; Neutrophils # (auto) 7.15 K/uL (1.4-6.5); Neutrophils % (auto) 79.3 %; Platelet Count 324 K/uL (130-400); Red Blood Count 3.72 M/uL (4.2-5.4); White Blood Count 9.02 K/uL (4.8-10.8)
[2020-02-11 16:21] LABS: Alanine Aminotransferase 24 U/L (12-78); Albumin Level 3.5 gm/dl (3.4-5.0); Alkaline Phosphatase 130 U/L (45-117); Aspartate Aminotransferase 13 U/L (15-37); BUN Creatinine Ratio 59.8 (10-20); Bilirubin,Total 0.3 mg/dl (0.2-1); Blood Urea Nitrogen 28 mg/dl (7-18); C Reactive Protein < 0.29 mg/dl (0-0.29); Calcium 9.6 mg/dl (8.5-10.1); Carbon Dioxide 45 mmol/L (21-32); Chloride 88 mmol/L (98-107); Creatine Kinase 42 U/L (26-192); Creatine Kinase MB 1.7 ng/ml (0.5-3.6); Est GFR (Non-African American) 96.6; Ferritin 14.9 ng/ml (8-388); Globulin 3.6 gm/dl (2.5-4.0); Glucose 121 mg/dl (70-99); Lipase 75 U/L (73-393); Potassium 4.1 mmol/L (3.5-5.1); Sodium 135 mmol/L (136-145); Total Protein 7.1 gm/dl (6.4-8.2); Troponin I < 0.015 ng/ml (0-0.045)
--- NOTE | 2020-02-11 16:23 | CT Scan Report ---
CT head/brain wo con CLINICAL HISTORY: 74 years-old Female with Pt c/o AMS. Acutely altered mental status TECHNIQUE: Multiple axial CT images of the head were obtained without contrast. A dose lowering tech nique was utilized adhering to the principles of ALARA. CT DOSE: 537.48 mGy.cm COMPARISON: Head CT 01/06/2020. FINDINGS: No acute intracranial hemorrhage, midline shift, intracranial mass, hydrocephalus, or abnormal extra- axial collection. Ill-defined areas of decreased attenuation noted involving the mid aspects of the b ilateral cerebellar hemispheres which appears new from prior. Mild patchy white matter hypodensities suggest chronic microvascular ischemic disease. There is suggestion of a remote lacunar infarct of th e left lentiform nucleus. The calvarium is intact. Mild leftward bowing and spurring of the nasal septum. Right dulce maria bullosa. Prior bilateral cataract repair. The paranasal sinuses, mastoid air cells, and middle ear cavities a re clear. IMPRESSION: 1. Ill-defined decreased attenuation involves the mid aspects of the bilateral cerebellar hemispheres which appears new from 01/06/2020. These findings may be on an artifactual basis however if there is clinical concern for acute or subacute posterior circulation infarct(s), follow-up brain MRI may be c onsidered. 2. No acute intracranial hemorrhage or midline shift. 3. Suggestion of chronic microvascular ischemic disease. ACT 112: Negative or not required by law. The above report was generated using voice recognition software. It may contain grammatical, syntax o r spelling errors. Electronically signed by: Miguel Palmer M.D. 02/11/2020 4:22 PM
--- NOTE | 2020-02-11 16:35 | CT Scan Report ---
CT pelvis wo con HISTORY: 74 years-old Female Pt c/o multiple hip fractures acute pelvic pain with reported hip fract ures COMPARISON: CT left hip, CT abdomen and pelvis 01/06/2020 TECHNIQUE: Multiple axial CT images of the pelvis were obtained without the use of IV contrast. A dos e lowering technique was used consistent with the principals of ELI. FINDINGS: Extensive calcified plaque the abdominal aorta and iliac arteries. Fusiform ectasia of the distal abd ominal aorta, 2.8 cm with fusiform dilation of the right common iliac artery, 1.7 cm. Partially image d moderate gallbladder distention. 5 mm nonobstructing calculus of the inferior pole right kidney. Pr obable cyst of the inferior pole right kidney is redemonstrated, 2.4 cm. Mild urothelial thickening a nd renal pelvis. Moderate fecal retention. There is mild generalized body wall edema. Tiny fat filled periumbilical hernia. Subacute left-sided sacral insufficiency fracture with healing periostitis extends along the entirety of the sacrum longitudinally and craniocaudal distribution paralleling the left SI joint. Healing hair bacute nondisplaced fracture involves the anterior wall of the left acetabulum. Healing displaced sub acute fracture involves the left inferior pubic ramus. Healing subacute nondisplaced fracture of the right inferior pubic ramus. There is progressive fragmentation with central lucency of the comminuted right superior pubic ramus/pubic body with mild surrounding healing periostitis. Serpiginous areas o f peripheral sclerosis. Moderate osteoarthritis of the bilateral hips. No new acute fracture or sublu xation. There is no avascular necrosis. IMPRESSION: 1. Progressive fragmentation and displacement of the subacute comminuted right superior pubic ramus/p ubic body fracture. There is mild surrounding healing callus formation. 2. Additional healing subacute fractures with unchanged alignment from comparison are noted involving the left sacrum, anterior wall left acetabulum and bilateral inferior pubic rami. 3. Nonobstructing right nephrolithiasis. ACT 112: Negative or not required by law. The above report was generated using voice recognition software. It may contain grammatical, syntax o r spelling errors. Electronically signed by: Miguel Palmer M.D. 02/11/2020 4:33 PM
[2020-02-11] MEDS ORDERED: methylPREDNISolone 125 MG/2 ML VIAL IV STA (16:42)
[2020-02-11] MEDS ORDERED: MAGNESIUM SULFATE / D5W 1 GM/100 ML BAG IV ONE (16:42)
--- NOTE | 2020-02-11 18:01 | History & Physical Report ---
Date of Service February 11, 2020 Assessment & Plan (1) Weakness: Mrs. Alvarez is a 74 yo medically complicated female presenting after a recent admission and rehab stint for progressive weakness and new onset confusion. - etiology unknown: deconditioning vs. failure to thrive vs. recent stroke vs. multifactorial - work up as below - PT/OT consulted (2) Failure to thrive: - patient reports reduced PO intake over past 3 weeks - albumin normal at 3.5 - etiology: dysphagia vs. early satiety vs. multifactorial - barium swallow ordered; will keep patient NPO after midnight - GI consult placed (3) Early satiety: - patient endorses "filling up fast" - etiology unknown: mass vs. hiatal hernia vs. isolated right ventricular heart failure - barium swallow and GI consult as above - history of severe emphysema makes RV failure possible; would pursue only if GI work up negative (4) Dysphagia: - patient describes "food not going the whole way down" - patient has never had an EGD - Barium swallow ordered; NPO after midnight - GI consult placed (5) Confusion: - onset 3 days ago - neuro exam normal - Head CT describes concern for posterior circulation infarct - brain MRI ordered for further characterization - stroke work up pending MRI results (6) COPD (chronic obstructive pulmonary disease): - baseline O2 requirement of 2L via NC with BiPAP at night - continue home inhalers and daily prednisone 5mg - satting mid 90s on 3L via NC - does not appear to be in exacerbation (7) Tobacco use disorder: - pack year history not obtained - has reduced cigarette use; down to 2 cigarette per day in addition to e- cigarettes - does not want NicoDerm patch (8) Anemia: - macrocytic anemia - patient with known B12 deficiency - continue oral B12 supplements (9) Bilateral sacral insufficiency fracture: - from mechanical fall in December - pain control: Tylenol, Ibuprofen and Tramadol as needed (10) Closed fracture of left acetabulum: - from mechanical fall in December - pain control: Tylenol, Ibuprofen and Tramadol as needed (11) Diabetes mellitus, type 2: - on monotherapy with metformin 500mg, BID - A1c below goal at 6.4 in december, - consider discontinuing metformin DVT ppx: Lovenox 30mg, SQ, daily Dispo: Floor Diet: diabetic, heart healthy Code: Full Patient's daughters Ada [phone] and [facility] [phone] would like daily phone calls for updates on mother's care History of Present Illness Primary Care Provider: Mary Hester DO Ms. Alvarez is a medically complicated 74 yo woman who presented to the ED for progressive weakness, dyspnea on exertion and new confusion of 3 days duration. Her past medical history is notable for COPD, lung cancer s/p radiation therapy, osteopenia, vitamin D deficiency, macrocytic anemia with vitamin B12 deficiency, and type II diabetes mellitus. Of note, she was admitted to [facility] in December after a mechanical fall which resulted in bilateral pelvic fractures and a non- operable R femur fracture. She went to rehab for 2 weeks after this admission in [place], [place] but after returning home, her functional status declined and weakness progressed. She reports struggling to move around her house and with routine transfers. She reports reduced oral intake over the past two weeks. When asked why she has not been eating, she reports diminished appetite, early satiety and sensation of food "not going down." Her daughter Ada is present for encounter and reports her "not making complete sense" for the past 3 days. ED Course: Hgb 11.3. MCV 103. normal WBC. Co2 elevated to 45. Electrolytes normal. Cr normal. AST/ALT normal. CXR showing severe emphysematous changes, known R lobe nodule, no acute process. Pelvis CT showing progressive fragmentation and displacement of R pubic body fractures, and a non-obstructing R kidney stone. Head CT showing concern for possible subacute posterior circulation infarct. Allergies Allergy/AdvReac Type Severity Reaction Status Date / Time house dust mite Allergy Severe Verified 02/11/20 15:33 tree and shrub pollen Allergy Severe Verified 02/11/20 15:33 Sulfa (Sulfonamide Allergy Intermediate hives Verified 02/11/20 15:33 Antibiotics) Home Medications Home Medications Medication Instructions Recorded Confirmed Type Spiriva Respimat 2 puff INHALATION QAM 06/29/18 02/11/20 History aspirin [Aspir-81] 81 mg PO HS 06/29/18 02/11/20 History Oxygen Home #1 ea 05/01/19 11/07/19 History miscellaneous medical supply #1 ea 10/17/19 11/07/19 Rx miscellaneous medical supply #1 ea 10/29/19 11/07/19 Rx Wheelchair (Manual or Powered) #1 ea 11/10/19 Rx blood sugar diagnostic #100 ea 01/01/20 Rx blood-glucose meter #1 ea 01/01/20 Rx budesonide-formoterol HFA 160 2 puff INHALATION BID #10.2 gm 01/02/20 02/11/20 Rx mcg-4.5 mcg/actuation aerosol inhaler cyanocobalamin (vitamin B-12) 1,000 mcg PO QAM 01/06/20 02/11/20 History ibuprofen 200 - 400 mg PO Q6H PRN 01/06/20 02/11/20 History prednisone 5 mg PO QAM 01/06/20 02/11/20 History [id number] 1 tab PO BID #60 tab 01/08/20 02/11/20 Rx [Caltrate 600-D Plus Minerals] albuterol sulfate [Ventolin HFA] 2 puff INHALATION Q4H PRN 02/11/20 02/11/20 History citalopram [Celexa] 20 mg PO QAM 02/11/20 02/11/20 History ergocalciferol (vitamin D2) 50,000 unit PO VALLE 02/11/20 02/11/20 History metformin [Glucophage] 500 mg PO BID 02/11/20 02/11/20 History tramadol [Ultram] 25 mg PO TID PRN 02/11/20 02/11/20 History Past Med/Surg History Medical History Acute exacerbation of chronic obstructive pulmonary disease (COPD) (Resolved) Acute non-ST segment elevation myocardial infarction (NSTEMI) following previous myocardial infarction (Inactive) Age related osteoporosis (Inactive) Anxiety Bursitis of ankle Classic migraine with aura (Inactive) Coronary artery disease (Inactive) Current use of steroid medication F/U DR WALLACE Depression Diabetes mellitus, type 2 Diverticulosis (Inactive) Hearing loss, sensorineural (Inactive) History of colon polyps Iron deficiency anemia Normocytic anemia On home oxygen therapy 3/L/MIN NC Osteoarthritis Osteoporosis Right middle lobe pulmonary nodule (Chronic) SOB (shortness of breath) Type II diabetes mellitus Vitamin B12 deficiency (dietary) anemia Weight loss, non-intentional Surgical History History of bunionectomy of right great toe History of cardiac cath 2015-NO STENTS NEEDED [facility] History of carpal tunnel release RIGHT History of cataract surgery Bilateral History of colonoscopy History of hysterectomy OVARIES REMAIN History of tonsillectomy Social History Preferred Language: [place] Communication Ability: Effective Visual Impairment: Limited Hearing Ability: Normal Event Specialist Required: No Beliefs That Will Affect Care: None marital status: / Current Living Situation: Family current occupational status: retired 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 Feels Safe at Home: Yes Smoking Status: Current every day smoker Tobacco Type: cigarettes ; Second Hand Exposure: No ; Hx Alcohol Use: No Hx Substance Use: No Childhood Exposure to Second-Hand Smoke: Yes Diet Comment: regular caffeine: No during the past year weight has: decreased > 10 lbs Dental Care, Regularly: No Physical Activity Frequency: Does not Exercise Seatbelt Use: always Sunscreen Use: No Review of Systems Constitutional: + weakness Respiratory: + dyspnea Gastrointestinal: + early satiety and + dysphagia Physical Exam Constitutional: + cachectic and cooperative; no acute distress Eyes: + anicteric sclerae ENMT: external ear and nose normal, oropharynx normal Neck: normal visual inspection Respiratory: normal respiratory effort; no labored breathing, does not use accessory muscles and no cough Auscultation: + diminished lung sounds (throughout) and + wheezes (on expiration); no crackles, no rales and no rhonchi Cardiovascular: Rate/Rhythm: regular rate and regular rhythm Heart Sounds: normal S1 and normal S2 Vessels: no JVD Extremities: no pedal edema heart sounds distant Gastrointestinal (Abdomen): Inspection/Auscultation: abdomen normal to inspection and normal bowel sounds; abdomen not distended Percussion/Pal pation: abdomen soft; abdomen nontender and no guarding Musculoskeletal: + pain with palpation of pelvis and R hip Skin: no rashes, warm and dry Neurologic: CN's II-XI intact bilaterally, moves all extremities and + confused (mild); no focal motor deficits Motor/Sensory: no pronator drift and no sensory deficit Finger to nose intact b/l; heel to lau intact b/l; rapid alternating movement intact b/l Psychiatric: A+Ox3, euthymic affect Results & Data Results & Data ([facility]) Vital Signs (Past 12 Hours) Vital Signs Temp Pulse Resp BP Pulse Ox 02/11/20 17:00 70 18 134/65 89 L 02/11/20 16:30 67 19 153/73 H 93 02/11/20 16:00 71 23 125/67 92 02/11/20 15:30 68 26 H 117/69 95 02/11/20 15:07 74 18 119/65 90 02/11/20 14:51 90 02/11/20 14:26 78 20 88 L 02/11/20 14:13 36.8 C 80 20 131/74 100 Supervising Physician Co-Signing Physician Notes I personally examined the patient and verified all gutierrez points of history and exam, discussed case, and agree with decision making with Dr Medina. weak, difficulty eating, a little off mentally at times. dtr also notes wound on backside that is open vitals noted nad aaox3 pleasant and fatigued appearing, cachectic. heent nc at mmm. breathing unlabored no accessory muscles good effort skin no rashes no pallor or icterus no focal neuro deficits labs and diagnostics noted failure to thrive/weakness/acute on chronic calorie malnutrition (albumin surprisingly low normal - ?falsely elevated, suspect protein malnutrition as wel l - probably all moderate to severe) -- dysphagia vs early satiety? barium swallow and GI eval. follow PO intake, nutrition consult periodic confusion - aaox3 now and conversational, spunky, sarcastic - but has had times nonsensical - most likely delirium/encephalopathy features from above - but with CT head questioning stroke - MRI brain. low threshold to check B12, folate, etc as well - but will hold off since she needs global nutritional support/does not really appear deficient on one nutrient rather all. supportive care pelvic fractures - nonoperative. PT/OT eval and treat. if needed can consult ortho as it relates to nonhealing status but since fx only about a month old and malnutrition would impede healing, not surprising that this has not healed. nutrition support as above chronic hypoxic and hypercapnic respiratory failure - no acute sx. O2 and supportive care DVT proph - lovenox otherwise as above Resident Activity Tracking Resident Involvement: Resident Care Provided Care Provided: Adult Hospital Medicine (1) Closed fracture of left acetabulum Encounter type: initial encounter Fracture alignment: nondisplaced Sublocation of acetabulum: anterior wall Qualified Code(s): S32.415A - Nondisplaced fracture of anterior wall of left acetabulum, initial encounter for closed fracture (2) Bilateral sacral insufficiency fracture Encounter type: initial encounter Qualified Code(s): M84.48XA - Pathological fracture, other site, initial encounter for fracture
--- NOTE | 2020-02-11 18:36 | Electrocardiogram Report ---
Test Reason : Blood Pressure : / mmHG Vent. Rate : 073 BPM Atrial Rate : 073 BPM P-R Int : 144 ms QRS Dur : 088 ms QT Int : 368 ms P-R-T Axes : 078 -08 058 degrees QTc Int : 405 ms Normal sinus rhythm Possible Left atrial enlargement When compared with ECG of 06-JAN-2020 10:04, No significant change was found Confirmed by Anjel Collier ([id number]) on 02/11/2020 6:36:22 PM Referred By: REFERRED SELF Confirmed By:Ramy Collier
--- NOTE | 2020-02-11 19:28 | Billing Data ---
Date of Service February 11, 2020 Coding Level of Care Code 88198 Initial Inpt Care Lvl 3
[2020-02-11] MEDS ORDERED: ALUMINUM/MAGNESIUM SUSP 30 ML UDC PO PRN (19:30)
[2020-02-11] MEDS ORDERED: ALBUTEROL HFA 8 GM INHALER INH PRN (19:30)
[2020-02-11] MEDS ORDERED: IBUPROFEN 200 MG TAB PO PRN (19:30)
[2020-02-11] MEDS ORDERED: MAGNESIUM HYDROXIDE SUSP 30 ML UDC PO PRN (19:30)
[2020-02-11] MEDS ORDERED: POLYETHYLENE (MIRALAX) 17 GM PACK PO PRN (19:30)
[2020-02-11] MEDS ORDERED: ACETAMINOPHEN 325 MG TAB PO PRN (19:30)
[2020-02-11] MEDS ORDERED: PATIENT'S HEIGHT AND/OR WEIGHT NEEDED SCH (20:00)
[2020-02-11] MEDS: METFORMIN HCL 500 MG TAB PO SCH (21:00)
[2020-02-11] MEDS ORDERED: ASPIRIN 81 MG ECTAB PO SCH (21:00)
[2020-02-11] MEDS ORDERED: ENOXAPARIN INJ 40 MG/0.4 ML SYR SQ SCH (21:00)
[2020-02-11] MEDS ORDERED: ERGOCALCIFEROL 50,000 UNITS CAP PO SCH (21:00)
[2020-02-11] MEDS: CALCIUM 600MG + VIT D 400 IU TAB PO SCH (21:01)
[2020-02-11] MEDS: ENOXAPARIN INJ 30 MG/0.3 ML SYR SQ SCH (22:19)
[2020-02-12] MEDS ORDERED: GADOBUTROL 65ML VIAL IV PRN (00:50)
--- NOTE | 2020-02-12 07:59 | Magnetic Resonance Report ---
MRI OF THE BRAIN WITHOUT AND WITH IV CONTRAST CLINICAL HISTORY: new confusion, CT scan concerning for infarct COMPARISON STUDY: Head CT February 11, 2020. TECHNIQUE: Utilizing a 1.5 Sarah magnet and dedicated coil, multiplanar, multiecho imaging of the br ain was performed pre and postcontrast administration. IV administration of 3.9 mL of Gadavist contr ast was uneventful. FINDINGS: Note is made of foci of increased attenuation within the bilateral cerebellar hemispheres o n axial diffusion-weighted image 5 of 44. The larger focus within the right cerebellar hemisphere is isointense on the ADC map. There is a corresponding 1.2 cm T2 hyperintense focus on the T2-weighted s equence as well as 0.8 cm T2 hyperintense focus within the left cerebellar hemisphere. There is no ma ss effect. No additional foci of restricted diffusion are present. Ventricular system is normal. Basi lar cisterns are patent. There are no extra-axial collections. No intracranial mass or pathologic enh ancement is identified. Exam is mildly compromised by motion artifact but is diagnostic. White matter T2 hyperintense foci suggest moderate small vessel disease. Calvarial signal is normal. Orbits are u nremarkable. IMPRESSION: 1. Small foci of signal abnormality within the bilateral cerebellar hemispheres which correspond to t he findings on head CT of February 11, 2020. These favor subacute infarcts. No mass effect. No hemorrhage. Discussed with Dr. Coates at time of dictation. 2. No intracranial mass. ACT 112: Negative or not required by law. Electronically signed by: Sandro Cook M.D. 02/12/2020 7:58 AM
[2020-02-12] MEDS: METFORMIN HCL 500 MG TAB PO SCH (09:31)
[2020-02-12] MEDS ORDERED: OPTIRAY 320 125ml IV PRN (09:45)
--- NOTE | 2020-02-12 10:16 | Family Medicine Progress Note ---
Date of Service February 12, 2020 Assessment & Plan (1) Cerebellar stroke: Mrs. Alvarez is a 74 yo F PMHx osteoporosis with recent b/l femoral fractures 2/2 fall s/p rehab, B12 deficiency anemia, CAD, COPD with current e- cigarette use, lung ca admitted for progressive weakness, failure to thrive and new onset confusion. Found to have subacute infarcts on brain MRI. Cerebellar Stroke: Cerebral infarction, POA - CT on admission showed: Ill-defined areas of decreased attenuation noted involving the mid aspects of the bilateral cerebellar hemispheres which appears new from prior - MRI brain showed: Small foci of signal abnormality within the bilateral cerebellar hemispheres which correspond this admission's Head CT. These favor subacute infarcts. No mass effect. No hemorrhage. - CTA Head and Neck: - No significant stenosis, occlusion, or aneurysm within the [place]. - No significant stenosis, occlusion, or dissection identified within the carotid or vertebral arteries. - A small cluster of vessels within the left sylvian fissure which measures approximately 1 cm consistent with an arteriovenous malformation. This appears to originate from a branch of the superior division of the left M2 segment. - TTE ordered, lipid panel in AM with AM labs. - HTN management with lisinopril deferred by patient, said would like to revisit tomorrow. BP highest 160s/80s this admission. - Have discontinued aspirin for Plavix per Neurology recommendations. - Will consider 30 day Holter monitor to evaluate for dysrhythmias on discharge. No arrhythmia since placement on cardiac monitoring. (2) Cerebral arteriovenous malformation (AVM): - CTA Head showed: - "A small cluster of vessels within the left sylvian fissure which measures approximately 1 cm consistent with an arteriovenous malformation. This appears to originate from a branch of the superior division of the left M2 segment." - Will require follow up in outpatient setting with neurosurgery for this finding. (3) Weakness: Improved PT/OT (4) Failure to thrive: - Patient reports reduced PO intake over past 3 weeks. - Pt's weight is significantly reduced if last admission is taken into account; however her weight prior to that admission had also been about 40kg which suggests the possibility of measurement error at last admission. However despite that pt is still down between 2-4kg from earlier this year. - Pt has diet ordered after passing speech evaluation; reports that she "likes ice cream" so will give her ice cream as well as her meals. - Albumin normal at 3.5. - Etiology: dysphagia vs. early satiety. - Barium swallow ordered; shows mild esophageal dysmotility but convoluted by patient movement. - GI consult placed and appreciate recs: -speech and swallow evaluation and possibly modified barium swallow. -supportive care, B12 supplementation for anemia. -can consider EGD to further evaluate in 2-3 months if still symptomatic and no clear etiology has been defined. (5) Dysphagia: - Patient describes "food not going the whole way down". - Patient has never had an EGD. - Barium swallow ordered which shows mild esophageal dysmotility which could account for a globus sensation; GI consult placed as above. - possibly 2/2 new posterior infarct, speech evaluation ordered and cleared for diet, will begin with lunch. (6) Confusion: - onset 3 days ago per daughters. - neuro exam normal. -Now confusion is resolved - Head CT describes concern for posterior circulation infarct. - brain MRI with concern for subacute infarcts in bilateral cerebellum; CTA head and neck without vascular occlusion consistent with subacute infarcts. - NIHSS scale, continuous pulse ox and site monitor ordered. - Echo ordered. (7) COPD (chronic obstructive pulmonary disease): - Baseline O2 requirement of 2L via NC with BiPAP at night; currently at baseline saturating well. - Continue home inhalers and daily prednisone 5mg. - No concern for exacerbation at this time. (8) Tobacco use disorder: - Unable to clarify smoking timeline, reports smoked for "a long time" but has now transitioned to mostly e-cigarette use. - Stressed strict smoking cessation, pt "will think about it". - Declines NicoDerm patch. (9) Anemia: - Patient with known B12 deficiency with a history of macrocytic anemia. - Continue oral B12 supplements. - Follow CBC AM given subjective history of dark stool this AM. No chris blood and stool not reported as abnormal by nursing. (10) Bilateral sacral insufficiency fracture: - From mechanical fall in December. - Pain control: Tylenol, Ibuprofen and Tramadol as needed. - PT/OT evaluations to determine if will need rehab upon discharge. (11) Severe protein-calorie malnutrition: With significant weight loss, BMI is only 13.8 Nutrition/dietary consultation (12) Chronic respiratory failure with hypoxia: On chronic O2 at home Continue supplemental O2 (13) Diabetes mellitus, type 2: - At home is on monotherapy with metformin 500mg, BID. - Metformin held at this time. - Insulin aspart: Goal BSG Range: Low 100 mg/dL, High 140 mg/dL Correction Factor: 30 mg/dL/unit INS:CHO Ratio: 1unit per 15 gms CHO consumed BSGs ACHS if eating, q6h if npo - A1c below goal at 6.4 in December 2019. DVT ppx: Lovenox 30mg, SQ, daily Dispo: Med/Surg with Telemetry Diet: Diabetic, Heart Healthy Code: Full Of note, patient's daughters Ada [phone] and Annabella [phone] would like daily phone calls for updates on mother's care. Admission and Anticipated Discharge Date Admission Date: February 11, 2020 Supervising Physician Co-Signing Physician Notes I personally examined the patient and verified all gutierrez points of history and exam, discussed case, and agree with decision making with Dr. Dawson Patient is much improved today, has not confused at all and feels stronger. She is concerned about her ability to eat. She does not want to be started on a blood pressure medication at this point-"I want to wait a week and see how it goes." Denies chest pains or shortness of breath Discussed the case with neurology Vitals reviewed, telemetry with normal sinus rhythm Cachectic, pleasant, AAO x3 RRR, no MGR Lungs diminished throughout with occasional expiratory wheeze Abdomen scaphoid, positive bowel sounds, soft nontender nondistended Extremities no edema Neuro-moves all extremities well, 5/5 strength, EOMI, no facial droop Found to have bilateral cerebellar strokes as above-management reviewed with neurology failure to thrive/weakness/acute on chronic severe protein calorie [id number] as above, encourage dietary supplementation, also with likely end-stage COPD contributing periodic confusion -now resolved and was likely secondary to strokes as above pelvic fractures - nonoperative. PT/OT eval and treat. if needed can consult ortho as it relates to nonhealing status but since fx only about a month old and malnutrition would impede healing, not surprising that this has not healed. nutrition support as above DVT proph - lovenox otherwise as above Subjective Pt with one subjective dark bowel movement overnight. Not reported by nursing staff. No bright red stools. No abdominal pain. Patient on my interview was alert and oriented and using a notepad to take notes on our visit. Denies increased SOB, no CP, nausea, vomiting, diarrhea, constipation. Feels "hungry but all I can think of that I would like is ice cream". Regarding her trouble swallowing relates that she started having trouble swallowing around the same time that she came into the hospital previously for her fractures. Feels that her weakness was "bad the moment I left the hospital" and relay that she was at rehab for about two weeks but felt that she got worse and not better. Is able to take in food but it must be slowly as she feels to "back up" in her throat" if she eats too quickly. Review of Systems Constitutional: + fatigue, + weakness and + weight loss; no fever and no chills Respiratory: no cough, no dyspnea and no wheezing Cardiovascular: no chest pain, no palpitations and no edema Gastrointestinal: + early satiety; no abdominal pain, no nausea, no vomiting and no blood in stools Genitourinary: no dysuria, no urinary urgency and no hematuria Neurologic: no numbness and no headache(s) Physical Exam Constitutional: + cachectic and cooperative; no acute distress Eyes: + anicteric sclerae ENMT: external ear and nose normal, oropharynx normal Neck: normal visual inspection Respiratory: no labored breathing, does not use accessory muscles and no cough Auscultation: + diminished lung sounds (throughout) and + wheezes (intermittent, bilateral, expiratory); no crackles, no rales and no rhonchi Cardiovascular: Rate/Rhythm: regular rate and regular rhythm Vessels: no JVD Extremities: no edema heart sounds distant Gastrointestinal (Abdomen): Inspection/Auscultation: abdomen normal to inspection and normal bowel sounds; abdomen not distended Percussion/Palpation: abdomen soft; abdomen nontender and no guarding Musculoskeletal: + pain with palpation of pelvis and R hip Skin: no rashes, warm and dry Neurologic: CN's II-XI intact bilaterally, moves all extremities and + confused (mild); no focal motor deficits Motor/Sensory: no pronator drift and no sensory deficit Finger to nose intact b/l; heel to lau intact b/l; rapid alternating movement intact b/l Psychiatric: A+Ox3, euthymic affect Results & Data ([facility]) Vital Signs (Past 12 Hours) Vital Signs Temp Pulse Pulse Resp BP Pulse Ox 02/12/20 08:15 36.9 C 74 20 143/72 H 90 02/11/20 23:54 36.9 C 76 20 156/71 H 92 02/11/20 23:09 74 18 95 Resident Activity Tracking Resident Involvement: Resident Care Provided Care Provided: Adult [facility] (1) Bilateral sacral insufficiency fracture Encounter type: initial encounter Qualified Code(s): M84.48XA - Pathological fracture, other site, initial encounter for fracture
--- NOTE | 2020-02-12 10:27 | CT Scan Report ---
HEAD & NECK CTA HISTORY: new cerebellar CVA TECHNIQUE: Multiaxial CT images of the head were performed following the intravenous administration o f contrast to evaluate the major cerebral vessels. Multiaxial CT images of the neck were also perform ed following the intravenous administration of contrast to evaluate the major cervical vessels. Maxim um intensity projection images were also obtained. A dose lowering technique was utilized adhering to the principles of ALARA. COMPARISON: Head CT 02/11/2020. FINDINGS: Redemonstration of the subtle hypodensities within the cerebellar hemispheres which are consistent wi th age indeterminate infarcts. Visualized intracranial internal carotid arteries, distal vertebral ar teries, and basilar artery are widely patent. There is no significant stenosis, occlusion, or aneurys m seen within the bilateral ACAs, MCAs, or rehabilitation medicine physician. Mild calcified plaque within the bilateral carotid s iphons. The major dural venous sinuses are patent. The small cluster of vessels seen within the left sylvian fissure best seen on image 134 which measures approximately 1 cm. This appears to represent a n arteriovenous malformation with the arterial feeder extending from a branch of the superior divisio n of the left M2 segment and a dilated draining cortical vein. The aortic arch and proximal great vessels are widely patent. There is no significant stenosis, occ lusion, or dissection identified within the bilateral common carotid, internal carotid, or vertebral arteries. Mild calcified plaque within the aortic arch, proximal great vessels, and right carotid bif urcation. Moderate calcified plaque within the left carotid bifurcation. An 8 mm left thyroid nodule. Emphysema. IMPRESSION: 1. No significant stenosis, occlusion, or aneurysm within the [place]. 2. No significant stenosis, occlusion, or dissection identified within the carotid or vertebral arter ies. 3. A small cluster of vessels within the left sylvian fissure which measures approximately 1 cm consi stent with an arteriovenous malformation. This appears to originate from a branch of the superior div ision of the left M2 segment. ACT 112: Negative or not required by law. Electronically signed by: Evangelista Cid M.D. 02/12/2020 10:26 AM
--- NOTE | 2020-02-12 10:30 | Neurology Consultation ---
Date of Consultation February 12, 2020 Assessment & Plan (1) Cerebellar stroke: Subacute, embolic appearing bilateral cerebellar strokes identified on recently completed CT of the head and brain MRI. No evidence for a significant vascular lesion on CT angiography of the head and neck. Patient will need additional testing per stroke protocol including transthoracic echocardiography. Would consider obtaining an up-to-date lipid panel. Smoking cessation will need to be stressed. Consider switching from daily low-dose aspirin to clopidogrel 75 mg/day if there are no medical contraindications or potential issues identified on the pending GI consultation. Consider obtaining a 30-day cardiac event monitor to exclude paroxysmal atrial fibrillation. (2) Cerebral arteriovenous malformation (AVM): Incidentally discovered 1 cm left sylvian fissure arteriovenous malformation. Consider non-urgent outpatient neurosurgical assessment. History of Present Illness Reason for Consultation: stroke Requesting Physician: Tran Coates MD Attending Physician: Tran Coates MD History of Present Illness The patient is a 74-year-old female admitted with progressive weakness, confusion, reduced p.o. intake, dysphagia, and recent fall complicated by sacral/acetabular fractures. A CT of the head had suggested bilateral cerebellar infarcts. This finding was confirmed on a follow-up brain MRI. I evaluated this patient this morning, prior to completion of her CT angiogram of the head and neck which were largely unremarkable other than a small incidental left sylvian fissure AVM. As noted in the admission history, the patient was recently admitted to [facility] in December after a fall complicated by pelvic and nonoperative femoral fracture. Patient's history is also notable for COPD, lung cancer, radiation therapy, osteopenia, macrocytic anemia with vitamin B12 deficiency, and type 2 diabetes mellitus. Patient indicates that her main problem is inability to eat, weight loss, failure to thrive. She reports difficulty with swallowing. A GI consultation has been placed. She denies any specific problem with coordination, focal weakness, or change in speech. She is aware of the subacute infarcts identified on her recently completed brain MRI. She does not have a prior history of stroke or TIA. Patient is a smoker. She does appear to take daily baby aspirin as an outpatient. Allergies Allergy/AdvReac Type Severity Reaction Status Date / Time house dust mite Allergy Intermediate Unknown Verified 02/11/20 19:43 Sulfa (Sulfonamide Allergy Intermediate hives Verified 02/11/20 15:33 Antibiotics) tree and shrub pollen Allergy Intermediate Unknown Verified 02/11/20 19:43 Home Medications Home Medications Medication Instructions Recorded Confirmed Type Spiriva Respimat 2 puff INHALATION QAM 06/29/18 02/11/20 History aspirin [Aspir-81] 81 mg PO HS 06/29/18 02/11/20 History Oxygen Home #1 ea 05/01/19 11/07/19 History miscellaneous medical supply #1 ea 10/17/19 11/07/19 Rx miscellaneous medical supply #1 ea 10/29/19 11/07/19 Rx Wheelchair (Manual or Powered) #1 ea 11/10/19 Rx blood sugar diagnostic #100 ea 01/01/20 Rx blood-glucose meter #1 ea 01/01/20 Rx budesonide-formoterol HFA 160 2 puff INHALATION BID #10.2 gm 01/02/20 02/11/20 Rx mcg-4.5 mcg/actuation aerosol inhaler cyanocobalamin (vitamin B-12) 1,000 mcg PO QAM 01/06/20 02/11/20 History ibuprofen 200 - 400 mg PO Q6H PRN 01/06/20 02/11/20 History prednisone 5 mg PO QAM 01/06/20 02/11/20 History [id number] 1 tab PO BID #60 tab 01/08/20 02/11/20 Rx [Caltrate 600-D Plus Minerals] albuterol sulfate [Ventolin HFA] 2 puff INHALATION Q4H PRN 02/11/20 02/11/20 History citalopram [Celexa] 20 mg PO QAM 02/11/20 02/11/20 History ergocalciferol (vitamin D2) 50,000 unit PO VALLE 02/11/20 02/11/20 History metformin [Glucophage] 500 mg PO BID 02/11/20 02/11/20 History tramadol [Ultram] 25 mg PO TID PRN 02/11/20 02/11/20 History Patient History Medical History Acute exacerbation of chronic obstructive pulmonary disease (COPD) (Resolved) Acute non-ST segment elevation myocardial infarction (NSTEMI) following previous myocardial infarction (Inactive) Age related osteoporosis (Inactive) Anxiety Bursitis of ankle Classic migraine with aura (Inactive) Coronary artery disease (Inactive) Current use of steroid medication F/U DR WALLACE Depression Diabetes mellitus, type 2 Diverticulosis (Inactive) Hearing loss, sensorineural (Inactive) History of colon polyps Iron deficiency anemia Normocytic anemia On home oxygen therapy 3/L/MIN NC Osteoarthritis Osteoporosis Right middle lobe pulmonary nodule (Chronic) SOB (shortness of breath) Type II diabetes mellitus Vitamin B12 deficiency (dietary) anemia Weight loss, non-intentional Surgical History History of bunionectomy of right great toe History of cardiac cath 2014-NO STENTS NEEDED [facility] History of carpal tunnel release RIGHT History of cataract surgery Bilateral History of colonoscopy History of hysterectomy OVARIES REMAIN History of tonsillectomy Family History Mother , in her 70s Emphysema lung Father , 68yo Myocardial infarction Brother No family history of cancer Brother No family history of cancer Brother No family history of cancer Brother No family history of cancer Sister Alzheimer disease Sister No family history of cancer Daughter No problems noted. Daughter No problems noted. 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 Feels Safe at Home: Yes Smoking Status: Current every day smoker Tobacco Type: cigarettes ; Second Hand Exposure: No ; Hx Alcohol Use: No Hx Substance Use: No Childhood Exposure to Second-Hand Smoke: Yes Diet Comment: regular caffeine: No during the past year weight has: decreased > 10 lbs Dental Care, Regularly: No Physical Activity Frequency: Does not Exercise Seatbelt Use: always Sunscreen Use: No Review of Systems Constitutional: + weight loss Eyes: no blind spots and no diplopia Ear, Nose, Mouth, Throat: no hearing loss Respiratory: + dyspnea on exertion Cardiovascular: no chest pain and no palpitations Gastrointestinal: + dysphagia Genitourinary: no urinary incontinence Musculoskeletal: no neck pain and no myalgia Integumentary: no rash and no lesions Neurologic: as per Subjective / HPI; no localized weakness, no loss of sensation, no headache(s) and no memory loss Psychiatric: no depression and no anxiety Hematologic / Lymphatic: no easy bleeding and no easy bruising Exam (Neuro) Constitutional: + thin and + malnourished; no acute distress Eyes: normal visual metcalf by confrontation, PERRL, normal accommodation and EOM intact bilaterally; no fundoscopic abnormality, no nystagmus and no papilledema Cardiovascular: Vessels: normal carotid upstroke; no carotid bruit Neurologic: Oriented to:: Person, Place and Time Memory: Short Term Intact and Remote Intact Attention: Span Intact and Concentration Intact Language: Naming Objects and Repeating Phrases Speech Fluency: negative Dysarthria Speech Aphasia: negative Aphasia Fund of Knowledge: Current Events, Past History and Vocabulary Cranial Nerves: Normal II (Visual metcalf full to confrontation, visual acuity normal), III, IV, (Pupils equal round reactive to light and accommodation, eye movements normal), V (Facial sensation intact), VII (There is no facial droop or weakness), VIII (Hearing intact), IX, X (Palate elevates to midline), XI (Shoulder shrug intact) and XII (Tongue protrudes to midline) Motor Strength: Normal Lower Extremities and Normal Upper Extremities; negative Pronator Drift Motor Tone: Normal Lower Extremities and Normal Upper Extremities Muscle Bulk/Involuntary Movements: No Involuntary Movements; negative Muscle Atrophy Sensation: Light Touch Intact, Pain/Temperature Intact, Vibration Intact and Proprioception Intact Coordination: Normal; negative Limited Balance, Dysdiadochokinesia, Finger-Nose Abnormal and Heel-Sesay Abnormal Deep Tendon Reflexes: Rt Triceps: 2+, Lt Tri ceps: 2+, Rt Biceps: 2+, Lt Biceps: 2+, Rt Brachioradialis: 2+, Lt Brachioradialis: 2+, Rt Patellar: 2+, Lt Patellar: 2+, Rt Ankle: 2+ and Lt Ankle: 2+ Special Tests: negative Babinski Present Details: Gait and station not tested for safety reasons. Results & Data ([facility]) Vital Signs (Past 12 Hours) Vital Signs Temp Pulse Pulse Resp BP Pulse Ox 02/12/20 08:15 36.9 C 74 20 143/72 H 90 02/11/20 23:54 36.9 C 76 20 156/71 H 92 02/11/20 23:09 74 18 95 Laboratory Results WBC 9.02, hemoglobin 11.3, hematocrit 38.3, MCV 103.0, platelet count 324, ESR 9, sodium 133, potassium 4.2, BUN 28, creatinine 0.7, glucose 204, troponin less than 0.015, AST 13, ALT 24, CRP less than 0.[address] of the head suggest bilateral cerebellar infarcts, not seen on previous CT of the head done on January 05. I reviewed the images as well as the radiologist's interpretation of this test. Brain MRI confirms presence of subacute infarcts within the bilateral cerebellar hemispheres. No hemorrhage or mass-effect. No intracranial masses. I reviewed the images as well as the radiologist's interpretation of this test. CT angiography of the head and neck negative for significant stenosis, occlusion, aneurysm within the [place], or dissection. There is a probable 1 cm arteriovenous malformation within the left sylvian fissure. I reviewed the images as well as the radiologist's interpretation of this test. An electrocardiogram reveals a normal sinus rhythm, 73 bpm. Possible left atrial enlargement. Coding Level of Care Code 44162 Initial Inpt Care Lvl 3 Diagnoses Cerebellar stroke I63.9 Cerebral arteriovenous malformation (AVM) Q28.2
--- NOTE | 2020-02-12 10:47 | Fluoroscopy Report ---
FL barium swallow CLINICAL HISTORY: Early saiety/dysphagia COMPARISON STUDY: None. FINDINGS: Suboptimal study due to patient motion. The patient swallowed barium without difficulty. To leena fluoroscopy time was 1.3 minutes. A cine loop was obtained with 274 images. Mild esophageal dysmo tility. No hiatus hernia. A barium tablet was not administered. The contours of the hypopharynx appea r within normal limits. Mild gastroesophageal reflux. IMPRESSION: 1. Suboptimal study due to patient motion. 2. Mild esophageal dysmotility. 3. Mild gastroesophageal reflux. ACT 112: Negative or not required by law. Electronically signed by: Evangelista Cid M.D. 02/12/2020 10:46 AM
[2020-02-12 11:11] LABS: Basophils # (auto) 0.01 K/uL (0-0.2); Basophils % (auto) 0.1 %; Eosinophils # (auto) 0.04 K/uL (0-0.5); Eosinophils % (auto) 0.5 %; Hematocrit (blood only) 32.6 % (37-47); Hemoglobin 9.9 g/dL (12.0-16.0); Immature Granulocytes # (auto) 0.02 K/uL (0.00-0.02); Immature Granulocytes % (auto) 0.2 %; Lymphocytes # (auto) 0.97 K/uL (1.2-3.4); Mean Corpuscular Hemoglobin 30.3 pg (25-34); Mean Corpuscular Hgb Conc 30.4 g/dL (32-36); Mean Corpuscular Volume 99.7 fL (80-100); Mean Platelet Volume 9.7 fL (7.4-10.4); Monocytes # (auto) 0.91 K/uL (0.11-0.59); Monocytes % (auto) 11.3 %; Neutrophils # (auto) 6.11 K/uL (1.4-6.5); Neutrophils % (auto) 75.9 %; Platelet Count 303 K/uL (130-400); RDW Coefficient of Variation 13.8 % (11.5-14.5); RDW Standard Deviation 50.5 fL (36.4-46.3); Red Blood Count 3.27 M/uL (4.2-5.4); White Blood Count 8.06 K/uL (4.8-10.8)
[2020-02-12] MEDS: CALCIUM 600MG + VIT D 400 IU TAB PO SCH ×2 (11:17→21:13)
[2020-02-12] MEDS: UMECLIDINIUM BROMIDE 62.5MCG/BLISTER 7 PUFFS/INHALER INH SCH (11:18)
[2020-02-12] MEDS: FLUTICASONE/VILANTEROL 100/25MCG 14 PUFFS/INHALER INH SCH (11:18)
[2020-02-12] MEDS ORDERED: GLUCOSE 10 TABS/TUBE PO PRN (11:24)
[2020-02-12] MEDS ORDERED: GLUCAGON FOR INJ 1 MG VIAL SQ PRN (11:24)
[2020-02-12] MEDS ORDERED: GLUCOSE 40% GEL 15 GM TUBE PO PRN (11:24)
[2020-02-12] MEDS ORDERED: DEXTROSE 50% 50 ML SYRINGE IV PRN (11:24)
[2020-02-12] MEDS ORDERED: CARBOHYDRATES FOR HYPOGLYCEMIA PO PRN (11:24)
[2020-02-12] MEDS ORDERED: lisinopriL 5 MG TAB PO ONE (11:39)
--- NOTE | 2020-02-12 12:15 | Gastrointestinal Consultation ---
Date of Consultation February 12, 2020 Assessment & Plan (1) Cerebellar stroke: (2) Dysphagia: oropharyngeal vs. esophageal, in the setting of subacute CVAs would favor oropharyngeal etiology. Barium swallow without any significant stricture/mass but suboptimal study. EGD at this time is not recommended given the CVAs. Recs: --speech and swallow evaluation and possibly modified barium swallow --supportive care, B12 supplementation for anemia --can consider EGD to further evaluate in 2-3 months if still symptomatic and no clear etiology has been defined. Thank you for allowing me to participate in the care of this patient. (3) Failure to thrive: History of Present Illness Attending Physician: Tran Coates MD 74 yo female with hx COPD, Vit B12 deficiency with anemia, lung cancer s/p radiation therapy, DM2 here for evaluation. She was hospitalized after developing progressive weakness and confusion, imaging including MRI and CT show posterior circulation subacute infarcts (cerebellar), new since 01/06/2020 imaging. GI consulted for failure to thrive and early satiety. Patient notes she has lost 25 lbs and that she has dysphagia and sitophobia as she fears that she will vomit if she keeps eating when she eats. No n/v, abdominal pains. She notes chronic constipation alternating with diarrhea. Otherwise denies any other significant symptoms. Barium swallow showed mild esophageal dysmotility and mild reflux. No prior EGD. Labs reviewed. anemia is noted. Allergies Allergy/AdvReac Type Severity Reaction Status Date / Time house dust mite Allergy Intermediate Unknown Verified 02/11/20 19:43 Sulfa (Sulfonamide Allergy Intermediate hives Verified 02/11/20 15:33 Antibiotics) tree and shrub pollen Allergy Intermediate Unknown Verified 02/11/20 19:43 Home Medications Home Medications Medication Instructions Recorded Confirmed Type Spiriva Respimat 2 puff INHALATION QAM 06/29/18 02/11/20 History aspirin [Aspir-81] 81 mg PO HS 06/29/18 02/11/20 History Oxygen Home #1 ea 05/01/19 11/07/19 History miscellaneous medical supply #1 ea 10/17/19 11/07/19 Rx miscellaneous medical supply #1 ea 10/29/19 11/07/19 Rx Wheelchair (Manual or Powered) #1 ea 11/10/19 Rx blood sugar diagnostic #100 ea 01/01/20 Rx blood-glucose meter #1 ea 01/01/20 Rx budesonide-formoterol HFA 160 2 puff INHALATION BID #10.2 gm 01/02/20 02/11/20 Rx mcg-4.5 mcg/actuation aerosol inhaler cyanocobalamin (vitamin B-12) 1,000 mcg PO QAM 01/06/20 02/11/20 History ibuprofen 200 - 400 mg PO Q6H PRN 01/06/20 02/11/20 History prednisone 5 mg PO QAM 01/06/20 02/11/20 History [id number] 1 tab PO BID #60 tab 01/08/20 02/11/20 Rx [Caltrate 600-D Plus Minerals] albuterol sulfate [Ventolin HFA] 2 puff INHALATION Q4H PRN 02/11/20 02/11/20 History citalopram [Celexa] 20 mg PO QAM 02/11/20 02/11/20 History ergocalciferol (vitamin D2) 50,000 unit PO VALLE 02/11/20 02/11/20 History metformin [Glucophage] 500 mg PO BID 02/11/20 02/11/20 History tramadol [Ultram] 25 mg PO TID PRN 02/11/20 02/11/20 History Patient History Medical History Acute exacerbation of chronic obstructive pulmonary disease (COPD) (Resolved) Acute non-ST segment elevation myocardial infarction (NSTEMI) following previous myocardial infarction (Inactive) Age related osteoporosis (Inactive) Anxiety Bursitis of ankle Classic migraine with aura (Inactive) Coronary artery disease (Inactive) Current use of steroid medication F/U DR WALLACE Depression Diabetes mellitus, type 2 Diverticulosis (Inactive) Hearing loss, sensorineural (Inactive) History of colon polyps Iron deficiency anemia Normocytic anemia On home oxygen therapy 3/L/MIN NC Osteoarthritis Osteoporosis Right middle lobe pulmonary nodule (Chronic) SOB (shortness of breath) Type II diabetes mellitus Vitamin B12 deficiency (dietary) anemia Weight loss, non-intentional Surgical History History of bunionectomy of right great toe History of cardiac cath 2014-NO STENTS NEEDED [facility] History of carpal tunnel release RIGHT History of cataract surgery Bilateral History of colonoscopy History of hysterectomy OVARIES REMAIN History of tonsillectomy Family History Mother , in her 70s Emphysema lung Father , 68yo Myocardial infarction Brother No family history of cancer Brother No family history of cancer Brother No family history of cancer Brother No family history of cancer Sister Alzheimer disease Sister No family history of cancer Daughter No problems noted. Daughter No problems noted. 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 Feels Safe at Home: Yes Smoking Status: Current every day smoker Tobacco Type: cigarettes ; Second Hand Exposure: No ; Hx Alcohol Use: No Hx Substance Use: No Childhood Exposure to Second-Hand Smoke: Yes Diet Comment: regular caffeine: No during the past year weight has: decreased > 10 lbs Dental Care, Regularly: No Physical Activity Frequency: Does not Exercise Seatbelt Use: always Sunscreen Use: No Review of Systems Constitutional: no fever, no chills and no weight loss Eyes: as per Subjective / HPI Ear, Nose, Mouth, Throat: as per Subjective / HPI Respiratory: no dyspnea and no dyspnea on exertion Cardiovascular: no chest pain and no palpitations Gastrointestinal: as per Subjective / HPI Musculoskeletal: no joint pain and no swelling Integumentary: no rash and no lesions Neurologic: no numbness and no paresthesia Psychiatric: no depression and no anxiety Endocrine: no fatigue Hematologic / Lymphatic: no easy bleeding and no easy bruising Physical Exam Constitutional: WD/WN, vitals as above Eyes: EOM intact bilaterally Neck: normal visual inspection Respiratory: normal respiratory effort, lungs clear to auscultation Cardiovascular: RRR, no murmur, no edema Gastrointestinal (Abdomen): Inspection/Auscultation: abdomen normal to inspection; abdomen not distended Percussion/Palpation: abdomen soft; abdomen nontender and no hepatosplenomegaly Musculoskeletal: Extremities: no cyanosis Gait: normal gait Skin: no rashes, warm and dry Neurologic: moves all extremities Psychiatric: A+Ox3, euthymic affect Results & Data ([facility]) Vital Signs (Past 12 Hours) Vital Signs Temp Pulse Pulse Resp BP Pulse Ox 02/12/20 11:24 36.7 C 69 18 162/77 H 97 02/12/20 11:09 75 02/12/20 08:15 36.9 C 74 20 143/72 H 90 PG Care Time/CCT Total # of Minutes Spent Total Time Spent with Patient: Total time spent is greater than 50% in coordination of care (as documented) at patient's floor/unit and/or counseling patient: Coding Level of Care Code 40982 Initial Inpt Care Lvl 3 Diagnoses Cerebellar stroke I63.9 Dysphagia R13.10 Failure to thrive
[2020-02-12] MEDS: INSULIN ASPART 100 UNITS/ML 3 ML PEN SC SCH ×3 (13:00→21:12)
[2020-02-12] MEDS: CITALOPRAM 20 MG TAB PO SCH (13:57)
[2020-02-12] MEDS: predniSONE 5 MG TAB PO SCH (13:57)
[2020-02-12] MEDS: CYANOCOBALAMIN 500 MCG TABLET (VITAMIN B-12) PO SCH (13:57)
[2020-02-12] MEDS: TRAMADOL HCL 50 MG TABLET PO PRN (14:02)
[2020-02-12] MEDS: CLOPIDOGREL BISULFATE 75 MG TAB PO SCH (14:25)
--- NOTE | 2020-02-12 15:20 | XCELERA ---
[id number] \\[id number]
--- NOTE | 2020-02-12 16:59 | Electrocardiogram Report ---
Test Reason : Blood Pressure : / mmHG Vent. Rate : 073 BPM Atrial Rate : 073 BPM P-R Int : 142 ms QRS Dur : 090 ms QT Int : 360 ms P-R-T Axes : 083 005 058 degrees QTc Int : 396 ms Normal sinus rhythm Voltage criteria for left ventricular hypertrophy Abnormal ECG Confirmed by Anjel Collier ([id number]) on 02/12/2020 4:59:22 PM Referred By: REFERRED SELF Confirmed By:Ramy Collier
--- NOTE | 2020-02-12 18:13 | Billing Data ---
Date of Service February 12, 2020 Coding Level of Care Code 17569 Subseq Hosp Care Lvl 3
[2020-02-12] MEDS: ENOXAPARIN INJ 30 MG/0.3 ML SYR SQ SCH (21:13)
[2020-02-13] MEDS: TRAMADOL HCL 50 MG TABLET PO PRN (05:46)
[2020-02-13 07:09] LABS: Basophils # (auto) 0.01 K/uL (0-0.2); Basophils % (auto) 0.1 %; Eosinophils # (auto) 0.13 K/uL (0-0.5); Eosinophils % (auto) 1.7 %; Hematocrit (blood only) 32.1 % (37-47); Hemoglobin 9.9 g/dL (12.0-16.0); Immature Granulocytes # (auto) 0.01 K/uL (0.00-0.02); Immature Granulocytes % (auto) 0.1 %; Lymphocytes # (auto) 1.18 K/uL (1.2-3.4); Lymphocytes % (auto) 15.2 %; Mean Corpuscular Hemoglobin 30.5 pg (25-34); Mean Corpuscular Hgb Conc 30.8 g/dL (32-36); Mean Corpuscular Volume 98.8 fL (80-100); Monocytes % (auto) 11.6 %; Neutrophils # (auto) 5.52 K/uL (1.4-6.5); Neutrophils % (auto) 71.3 %; Platelet Count 297 K/uL (130-400); RDW Standard Deviation 50.1 fL (36.4-46.3); Red Blood Count 3.25 M/uL (4.2-5.4); White Blood Count 7.75 K/uL (4.8-10.8)
[2020-02-13 07:51] LABS: BUN Creatinine Ratio 30.8 (10-20); Calcium 8.8 mg/dl (8.5-10.1); Creatinine Clr Calc Pharmacy 74.9 ml/min; Est GFR (African American) 117.1; Est GFR (Non-African American) 101.1
[2020-02-13] MEDS: INSULIN ASPART 100 UNITS/ML 3 ML PEN SC SCH ×4 (08:49→20:43)
[2020-02-13] MEDS: FLUTICASONE/VILANTEROL 100/25MCG 14 PUFFS/INHALER INH SCH (08:51)
[2020-02-13] MEDS: CITALOPRAM 20 MG TAB PO SCH (08:51)
[2020-02-13] MEDS: CALCIUM 600MG + VIT D 400 IU TAB PO SCH ×2 (08:51→20:41)
[2020-02-13] MEDS: UMECLIDINIUM BROMIDE 62.5MCG/BLISTER 7 PUFFS/INHALER INH SCH (08:51)
[2020-02-13] MEDS: CLOPIDOGREL BISULFATE 75 MG TAB PO SCH (08:52)
[2020-02-13] MEDS: predniSONE 5 MG TAB PO SCH (08:52)
[2020-02-13] MEDS: CYANOCOBALAMIN 500 MCG TABLET (VITAMIN B-12) PO SCH (08:52)
[2020-02-13] MEDS ORDERED: lisinopriL 5 MG TAB PO SCH (09:00)
--- NOTE | 2020-02-13 09:28 | Family Medicine Progress Note ---
Date of Service February 13, 2020 Assessment & Plan (1) Cerebellar stroke: Mrs. Alvarez is a 74 yo F PMHx osteoporosis with recent b/l femoral fractures 2/2 fall s/p rehab, B12 deficiency anemia, CAD, COPD with current e- cigarette use, lung ca admitted for progressive weakness, failure to thrive and new onset confusion. Found to have subacute infarcts on brain MRI. With improvement in confusion and weakness, however recommended for SNF upon discharge due to fatigueability and need for constant monitoring in the immediate discharge period. - CT on admission showed: Ill-defined areas of decreased attenuation noted involving the mid aspects of the bilateral cerebellar hemispheres which appears new from prior - MRI brain showed: Small foci of signal abnormality within the bilateral cerebellar hemispheres which correspond this admission's Head CT. These favor subacute infarcts. No mass effect. No hemorrhage. - CTA Head and Neck: - No significant stenosis, occlusion, or aneurysm within the [place] of [place]. - No significant stenosis, occlusion, or dissection identified within the car otid or vertebral arteries. - A small cluster of vessels within the left sylvian fissure which measures approximately 1 cm consistent with an arteriovenous malformation. This appears to originate from a branch of the superior division of the left M2 segment. - TTE ordered and did show any atrial shunting or thrombus. - Lipid panel showed total cholesterol >100, HDL 57, LDL 83, TG 124. Have added atorvastatin 40mg daily. - HTN management with lisinopril 2.5mg daily started. - Have discontinued aspirin for Plavix per Neurology recommendations. - For SNF following discharge; COVID 19 testing pending due to current regulations for placement. - Would recommend 30 day Holter monitor at SNF to evaluate for dysrhythmias. No arrhythmia since placement on cardiac monitoring. Pt would like front desk monitor discontinued due to discomfort. She is aware that arrhythmias can cause thrombus and that we may miss an arrhythmia without continuous cardiac monitoring. - Smoking cessation education performed. Pt "will think about quitting". (2) Cerebral arteriovenous malformation (AVM): AVM: - CTA Head showed: - "A small cluster of vessels within the left sylvian fissure which measures approximately 1 cm consistent with an arteriovenous malformation. This appears to originate from a branch of the superior division of the left M2 segment." - Will require follow up in outpatient setting for this finding with neurosurgery. (3) Weakness: Improved (4) Failure to thrive: - Patient reports reduced PO intake over past 3 weeks. - Pt's weight is significantly reduced if last admission is taken into account; however her weight prior to that admission had also been about 40kg which suggests the possibility of measurement error at last admission. However despite that pt is still down between 2-4kg from earlier this year. - Pt has diet ordered after passing speech evaluation; reports that she "likes ice cream" so will give her ice cream as well as her meals. Will supplement with Boost milkshakes as well. Ate well subjectively today but did not like the Boost by itself. Will add Boost to ice cream in milkshake form for increased protein. - Albumin normal at 3.5. - Etiology: dysphagia vs. early satiety. - Barium swallow ordered; shows mild esophageal dysmotility but convoluted by patient movement. - GI consult placed and appreciate recs: -speech and swallow evaluation and possibly modified barium swallow. -supportive care, B12 supplementation for anemia. -can consider EGD to further evaluate in 2-3 months if still symptomatic and no clear etiology has been defined. (5) Dysphagia: - Patient describes "food not going the whole way down". - Barium swallow ordered; GI consult placed as above. No further intervention at this time. - possibly 2/2 new posterior infarct. Could consider EGD if pt continues to have poor PO despite improvement in neurologic symptoms. (6) Confusion: - Onset 3 days prior to admission per daughters. - Neuro exam normal. - Head CT describes concern for posterior circulation infarct. - Brain MRI with concern for subacute infarcts; CTA head and neck without vascular occlusion consistent with subacute infarcts. - NIHSS scale continued. - Echo completed as above. (7) COPD (chronic obstructive pulmonary disease): - Baseline O2 requirement of 2L via NC with BiPAP at night; currently at baseline saturating well. - Continue home inhalers and daily prednisone 5mg. - No concern for exacerbation at this time. (8) Tobacco use disorder: - Unable to clarify smoking timeline, reports smoked for "a long time" but has now transitioned to mostly e-cigarette use. - Stressed strict smoking cessation, pt "will think about it". - Declines NicoDerm patch. (9) Anemia: - Patient with known B12 deficiency with a history of macrocytic anemia. - Continue oral B12 supplements. - Follow CBC AM given subjective history of dark stool this AM. No chris blood and stool not reported as abnormal by nursing. (10) Bilateral sacral insufficiency fracture: - From mechanical fall in December. - Pain control: Tylenol, Ibuprofen and Tramadol as needed. - PT/OT evaluations to determine if will need rehab upon discharge. - Given multiple fractures despite Fosamax, could consider Prolia or Forteo following discharge for osteoporosis. (11) Osteoporosis: (12) Diabetes mellitus, type 2: - A1c below goal at 6.4 in December 2019. - At home is on monotherapy with metformin 500mg, BID. - Metformin held at this time. - Insulin aspart: Goal BSG Range: Low 100 mg/dL, High 140 mg/dL Correction Factor: 30 mg/dL/unit INS:CHO Ratio: 1unit per 15 gms CHO consumed BSGs ACHS if eating, q6h if npo DVT ppx: Lovenox 30mg, SQ, daily Dispo: Med/Surg Diet: Diabetic, Heart Healthy, Boost Supplementation as patient tolerates Code: Full Patient's daughters Ada [phone] and Annabella [phone] would like daily phone calls for updates on mother's care. Admission and Anticipated Discharge Date Admission Date: February 11, 2020 Anticipated date of discharge: 02/14/20 Supervising Physician Co-Signing Physician Notes I personally examined the patient and verified all gutierrez points of history and exam, discussed case, and agree with decision making with Dr. Dawson Patient is doing well today, is eating more and feeling better. She is now agreeable to starting a blood pressure medication and the cholesterol medication help prevent future strokes. She does however want the telemetry box removed at his very heavy and a nuisance. She has had no arrhythmias. Vitals reviewed, telemetry with normal sinus rhythm Cachectic, pleasant, AAO x3 RRR, no MGR Lungs diminished throughout with occasional expiratory wheeze Abdomen scaphoid, positive bowel sounds, soft nontender nondistended Extremities no edema Neuro-moves all extremities well, 5/5 strength, EOMI, no facial droop Found to have bilateral cerebellar strokes as above-management reviewed with neurology and as noted above-switch to Plavix from aspirin, started statin and lisinopril for blood pressure control. Needs long-term cardiac event monitoring after discharge and will encourage smoking cessation failure to thrive/weakness/acute on chronic severe protein calorie [id number] as above, encourage dietary supplementation, also with likely end-stage COPD contributing to weight loss periodic confusion -now resolved and was likely secondary to strokes as above pelvic fractures - nonoperative. PT/OT eval and treat. if needed can consult ortho as it relates to nonhealing status but since fx only about a month old and malnutrition would impede healing, not surprising that this has not healed. nutrition support as above DVT proph - lovenox otherwise as above Subjective Pt without acute events overnight. No further dark BMs. No abdominal pain. Reports good appetite today, ate all of breakfast and lunch however does not like the Boost shakes by themselves. Asked if they could be put in a milkshake. No nausea. No fevers or chills. Feels alert but reports "when you are in the hospital and as old as me you get a little confused". Review of Systems Constitutional: + weight loss; no fever and no chills Respiratory: no cough, no dyspnea and no wheezing Cardiovascular: no chest pain, no palpitations and no edema Gastrointestinal: no abdominal pain, no nausea, no vomiting and no blood in stools Genitourinary: no dysuria, no urinary urgency and no hematuria Neurologic: no numbness and no headache(s) Physical Exam Constitutional: + cachectic and cooperative; no acute distress Eyes: + anicteric sclerae ENMT: external ear and nose normal, oropharynx normal Neck: normal visual inspection Respiratory: no labored breathing, does not use accessory muscles and no cough Auscultation: + diminished lung sounds (throughout) and + wheezes (intermittent, bilateral, expiratory); no crackles, no rales and no rhonchi Cardiovascular: Rate/Rhythm: regular rate and regular rhythm Vessels: no JVD Extremities: no edema heart sounds distant Gastrointestinal (Abdomen): Inspection/Auscultation: abdomen normal to inspection and normal bowel sounds; abdomen not distended Percussion/Palpation: abdomen soft; abdomen nontender and no guarding Skin: no rashes, warm and dry Neurologic: CN's II-XI intact bilaterally, moves all extremities and + confused (mild); no focal motor deficits Motor/Sensory: no pronator drift and no sensory deficit Finger to nose intact b/l; heel to lau intact b/l; rapid alternating movement intact b/l Psychiatric: A+Ox3, euthymic affect Results & Data ([facility]) Vital Signs (Past 12 Hours) Vital Signs Temp Pulse Pulse Resp BP Pulse Ox 02/13/20 07:35 36.7 C 63 20 145/71 H 98 02/13/20 07:25 62 02/13/20 04:50 36.5 C 65 18 155/52 H 93 02/13/20 02:09 66 02/12/20 23:32 36.5 C 63 16 118/63 92 Resident Activity Tracking Resident Involvement: Resident Care Provided Care Provided: Adult Hospital Medicine (1) Bilateral sacral insufficiency fracture Encounter type: initial encounter Qualified Code(s): M84.48XA - Pathological fracture, other site, initial encounter for fracture (2) COPD (chronic obstructive pulmonary disease) COPD type: unspecified COPD Qualified Code(s): J44.9 - Chronic obstructive pulmonary disease, unspecified
[2020-02-13] MEDS ORDERED: ATORVASTATIN 40 MG TAB PO ONE (14:00)
--- NOTE | 2020-02-13 17:09 | Billing Data ---
Date of Service February 13, 2020 Coding Level of Care Code 90098 Subseq Hosp Care Lvl 2
[2020-02-13] MEDS: ENOXAPARIN INJ 30 MG/0.3 ML SYR SQ SCH (20:43)
[2020-02-14] MEDS: TRAMADOL HCL 50 MG TABLET PO PRN (08:35)
[2020-02-14] MEDS: UMECLIDINIUM BROMIDE 62.5MCG/BLISTER 7 PUFFS/INHALER INH SCH (08:36)
[2020-02-14] MEDS: FLUTICASONE/VILANTEROL 100/25MCG 14 PUFFS/INHALER INH SCH (08:36)
[2020-02-14] MEDS: CALCIUM 600MG + VIT D 400 IU TAB PO SCH (08:37)
[2020-02-14] MEDS: CITALOPRAM 20 MG TAB PO SCH (08:37)
[2020-02-14] MEDS: CLOPIDOGREL BISULFATE 75 MG TAB PO SCH (08:38)
[2020-02-14] MEDS: predniSONE 5 MG TAB PO SCH (08:38)
[2020-02-14] MEDS: CYANOCOBALAMIN 500 MCG TABLET (VITAMIN B-12) PO SCH (08:38)
[2020-02-14] MEDS: INSULIN ASPART 100 UNITS/ML 3 ML PEN SC SCH ×2 (08:39→12:53)
[2020-02-14] MEDS ORDERED: ATORVASTATIN 40 MG TAB PO SCH (09:00)
--- NOTE | 2020-02-14 10:03 | Discharge Summary ---
Date of Service February 14, 2020 Admission HPI Per Admitting Provider Ms. Alvarez is a medically complicated 74 yo woman who presented to the ED for progressive weakness, dyspnea on exertion and new confusion of 3 days duration. Her past medical history is notable for COPD, lung cancer s/p radiation therapy, osteopenia, vitamin D deficiency, macrocytic anemia with vitamin B12 deficiency, and type II diabetes mellitus. Of note, she was admitted to [facility] in December after a mechanical fall which resulted in bilateral pelvic fractures and a non- operable R femur fracture. She went to rehab for 2 weeks after this admission in [place], [place] but after returning home, her functional status declined and weakness progressed. She reports struggling to move around her house and with routine transfers. She reports reduced oral intake over the past two weeks. When asked why she has not been eating, she reports diminished appetite, early satiety and sensation of food "not going down." Her daughter Ada is present for encounter and reports her "not making complete sense" for the past 3 days. ED Course: Hgb 11.3. MCV 103. normal WBC. Co2 elevated to 45. Electrolytes normal. Cr normal. AST/ALT normal. CXR showing severe emphysematous changes, known R lobe nodule, no acute process. Pelvis CT showing progressive fragmentation and displacement of R pubic body fractures, and a non-obstructing R kidney stone. Head CT showing concern for possible subacute posterior circulation infarct. Admission Exam Per Admitting Provider Constitutional: + cachectic and cooperative; no acute distress Eyes: + anicteric sclerae ENMT: external ear and nose normal, oropharynx normal Neck: normal visual inspection Respiratory: normal respiratory effort; no labored breathing, does not use accessory muscles and no cough Auscultation: + diminished lung sounds (throughout) and + wheezes (on expiration); no crackles, no rales and no rhonchi Cardiovascular: Rate/Rhythm: regular rate and regular rhythm Heart Sounds: normal S1 and normal S2 Vessels: no JVD Extremities: no pedal edema heart sounds distant Gastrointestinal (Abdomen): Inspection/Auscultation: abdomen normal to inspection and normal bowel sounds; abdomen not distended Percussion/Palpation: abdomen soft; abdomen nontender and no guarding Musculoskeletal: + pain with palpation of pelvis and R hip Skin: no rashes, warm and dry Neurologic: CN's II-XI intact bilaterally, moves all extremities and + confused (mild); no focal motor deficits Motor/Sensory: no pronator drift and no sensory deficit Finger to nose intact b/l; heel to lau intact b/l; rapid alternating movement intact b/l Psychiatric: A+Ox3, euthymic affect Principal Diagnosis failure to thrive, malnutrition, cerebellar stroke Discharge Exam Constitutional well developed and + thin Neck normal visual inspection Respiratory normal respiratory effort, lungs clear to auscultation Cardiovascular RRR, no murmur, no edema Gastrointestinal (Abdomen) normal bowel sounds, soft, nontender, no hepatosplenomegaly Skin no rashes, warm and dry Psychiatric A+Ox3, euthymic affect Discharge Data Allergies Allergy/AdvReac Type Severity Reaction Status Date / Time house dust mite Allergy Intermediate Unknown Verified 02/11/20 19:43 Sulfa (Sulfonamide Allergy Intermediate hives Verified 02/11/20 15:33 Antibiotics) tree and shrub pollen Allergy Intermediate Unknown Verified 02/11/20 19:43 Consultations 02/11/20 16:51 ED Decision to Admit Stat 02/11/20 19:30 Consult Case Management - Discharge Planning Routine 02/11/20 19:48 Consult Gastroenterology Routine 02/12/20 09:01 Consult Neurology Routine Ordered Studies 02/11/20 15:18 CT head/brain wo con Stat CT pelvis wo con Stat 02/11/20 19:30 MR brain wo/w con Routine 02/12/20 09:01 CT angio head w con Urgent CT angio neck with con Urgent 02/12/20 18:32 FL barium swallow Routine Hospital Course (1) Hypoxia: Mrs. Alvarez is a 74 yo F PMHx osteoporosis with recent b/l sacral fractures 2/2 fall s/p rehab, B12 deficiency anemia, CAD, COPD with current e- cigarette use, lung ca admitted for progressive weakness, failure to thrive and new onset confusion. Found to have subacute infarcts on brain MRI. With improvement in confusion and weakness, however recommended for SNF upon discharge due to fatigue and need for constant monitoring in the immediate discharge period. Cerebellar stroke: - CT on admission showed: Ill-defined areas of decreased attenuation noted involving the mid aspects of the bilateral cerebellar hemispheres which appears new from prior. - MRI brain showed: Small foci of signal abnormality within the bilateral cerebellar hemispheres which correspond this admission's Head CT. These favor subacute infarcts. No mass effect. No hemorrhage. - CTA Head and Neck: - No significant stenosis, occlusion, or aneurysm within the [place]. - No significant stenosis, occlusion, or dissection identified within the carotid or vertebral arteries. - A small cluster of vessels within the left sylvian fissure which measures approximately 1 cm consistent with an arteriovenous malformation. This appears to originate from a branch of the superior division of the left M2 segment. - TTE ordered and did show any atrial shunting or thrombus. - Lipid panel showed total cholesterol >100, HDL 57, LDL 83, TG 124. Started on atorvastatin 40mg daily. - HTN management with lisinopril 2.5mg daily started. - Have discontinued aspirin for Plavix per Neurology recommendations. - For SNF following discharge; COVID 19 testing negative. - Would recommend 30 day Holter monitor at SNF to evaluate for dysrhythmias. No arrhythmia since placement on cardiac monitoring. Pt would like doctor of audiology discontinued due to discomfort. She is aware that arrhythmias can cause thrombus and that we may miss an arrhythmia without continuous cardiac monitoring. - Smoking cessation education performed. Pt "will think about quitting". Cerebral arteriovenous malformation (AVM): - CTA Head showed: - "A small cluster of vessels within the left sylvian fissure which measures approximately 1 cm consistent with an arteriovenous malformation. This appears to originate from a branch of the superior division of the left M2 segment." - Will require follow up in outpatient setting for this finding with neurosurgery. Weakness: - Continue PT/OT outpatient. - Pt can sometimes be fearful of falling and pain during physical therapy. She is willing and redirectable with motivation and sometimes with some PRN OTC pain medication such as tylenol about an hour prior. Failure to thrive: - Patient reports reduced PO intake over past 3 weeks. - Pt's weight is significantly reduced if last admission is taken into account; may be as much as 30 lbs of weight loss over the last 2 months. - Pt cleared for diet after passing speech evaluation; reports that she "likes ice cream" so appropriate to give her ice cream as well as her meals. Also likes Glucerna shakes, prefers them to Boost. Should be supplemented with Boost with meals as much as the patient allows but no less than once a day. Can add shake to ice cream in "milkshake" form as patient has tolerated that well during this admission. - Albumin normal at 3.5. - Etiology: dysphagia vs. early satiety, likely 2/2 globus sensation possibly due to cerebellar strokes. - Barium swallow ordered; shows mild esophageal dysmotility. - GI consult placed and appreciate recs: -supportive care, B12 supplementation for anemia. -can consider EGD to further evaluate in 2-3 months if still symptomatic and no clear etiology has been defined. Dysphagia: - Patient describes "food not going the whole way down". - Barium swallow ordered; GI consult placed as above. No further intervention at this time. - possibly 2/2 new posterior infarct. Could consider EGD if pt continues to have poor PO despite improvement in neurologic symptoms. Confusion: - Onset 3 days prior to admission per daughters. - Neuro exam normal. - Head CT describes concern for posterior circulation infarct. - Brain MRI with concern for subacute infarcts; CTA head and neck without vascular occlusion consistent with subacute infarcts. - Echo completed as above. - Pt is AAOx3 on discharge, to decrease risk of delirium avoid offending medications, maintain good sleep schedule, redirect if needed. COPD (chronic obstructive pulmonary disease): - Baseline O2 requirement of 2L via NC with BiPAP at night; currently at baseline saturating well. - Continue home inhalers and daily prednisone 5mg. - No concern for exacerbation at this time. Tobacco use disorder: - Unable to clarify smoking timeline, reports smoked for "a long time" but has now transitioned to mostly e-cigarette use. - Stressed strict smoking cessation, pt "will think about it". - Declines NicoDerm patch. Anemia: - Patient with known B12 deficiency with a history of macrocytic anemia. - Continue oral B12 supplements. Bilateral sacral insufficiency fracture in the setting of osteoporosis: - From mechanical fall in December. - Pain control: Tylenol, Ibuprofen and Tramadol as needed. - Given multiple fractures despite Fosamax, could consider Prolia or Forteo following discharge for osteoporosis. Diabetes mellitus, type 2: - A1c below goal at 6.4 in December 2019. - At home is on monotherapy with metformin 500mg, BID. - Metformin during admission and was on SSI with good control. - Resume Metformin on discharge. Disposition: [facility] for inpatient rehab. (2) Chronic respiratory failure with hypoxia: (3) Severe protein-calorie malnutrition: (4) Cerebral arteriovenous malformation (AVM): (5) Cerebellar stroke: (6) Dysphagia: (7) Early satiety: (8) Failure to thrive: (9) Weakness: (10) Osteoporosis: (11) Depression: (12) Closed fracture of left acetabulum: (13) Bilateral sacral insufficiency fracture: (14) Inferior pubic ramus fracture: (15) Fracture of pubic ramus: (16) Diabetes mellitus, type 2: (17) Anemia: (18) CAD (coronary atherosclerotic disease): (19) Chronic respiratory failure with hypoxia and hypercapnia: (20) Tobacco use disorder: (21) Right middle lobe pulmonary nodule: (22) COPD (chronic obstructive pulmonary disease): (23) Pulmonary emphysema: Total Time Total Time Spent Total Time Spent (In Minutes): Please see attending attestation Discharge Plan Discharge Items Patient Disposition: Transfer Assisted Fac Reason For Visit: WEAKNESS Discharge Diagnosis: subacute cerebellar stroke, failure to thrive, malnutrition 2/2 dysphagia Condition on Discharge: Fair Activity: Per Instructions section Non-emergency contact: Primary Care Provider Call non-emergency contact if: your pain is worsening and your temperature is above 101 Follow-up/Referrals: Mary Hester DO [Primary Care Provider] - Diet: Carb Consistent or DM2 Addtl Attending Provider Instructions: Mrs. Alvarez is a 74 yo F PMHx osteoporosis with recent b/l femoral fractures 2/2 fall s/p rehab, B12 deficiency anemia, CAD, COPD with current e-cigarette use, lung ca admitted for progressive weakness, failure to thrive and new onset confusion. Found to have subacute infarcts on brain MRI. With improvement in confusion and weakness, however recommended for SNF upon discharge due to fatigueability and need for constant monitoring in the immediate discharge period. - CT on admission showed: Ill-defined areas of decreased attenuation noted involving the mid aspects of the bilateral cerebellar hemispheres which appears new from prior. - MRI brain showed: Small foci of signal abnormality within the bilateral cerebellar hemispheres which correspond this admission's Head CT. These favor subacute infarcts. No mass effect. No hemorrhage. - CTA Head and Neck: - No significant stenosis, occlusion, or aneurysm within the [place]. - No significant stenosis, occlusion, or dissection identified within the carotid or vertebral arteries. - A small cluster of vessels within the left sylvian fissure which measures approximately 1 cm consistent with an arteriovenous malformation. This appears to originate from a branch of the superior division of the left M2 segment. - TTE ordered and did show any atrial shunting or thrombus. - Lipid panel showed total cholesterol >100, HDL 57, LDL 83, TG 124. Started on atorvastatin 40mg daily. - HTN management with lisinopril 2.5mg daily started. - Have discontinued aspirin for Plavix per Neurology recommendations. - For SNF following discharge; COVID 19 testing negative performed due to current SNF regulations. - Would recommend 30 day Holter monitor at SNF to evaluate for dysrhythmias. No arrhythmia since placement on cardiac monitoring. Pt would like doctor of audiology discontinued due to discomfort. She is aware that arrhythmias can cause thrombus and that we may miss an arrhythmia without continuous cardiac monitoring. - Smoking cessation education performed. Pt "will think about quitting". Cerebral arteriovenous malformation (AVM): - CTA Head showed: - "A small cluster of vessels within the left sylvian fissure which measures approximately 1 cm consistent with an arteriovenous malformation. This appears to originate from a branch of the superior division of the left M2 segment." - Will require follow up in outpatient setting for this finding with neurosurgery. Weakness: - Continue PT/OT outpatient. - Pt can sometimes be fearful of falling and pain during physical therapy. She is willing and redirectable with motivation and sometimes with some PRN OTC pain medication such as tylenol about an hour prior. Failure to thrive: - Patient reports reduced PO intake over past 3 weeks. - Pt's weight is significantly reduced if last admission is taken into account; may be as much as 30 lbs of weight loss over the last 2 months. - Pt cleared for diet after passing speech evaluation; reports that she "likes ice cream" so appropriate to give her ice cream as well as her meals. Also likes Glucerna shakes, prefers them to Boost. Should be supplemented with Boost with meals as much as the patient allows but no less than once a day. Can add shake to ice cream in "milkshake" form as patient has tolerated that well during this admission. - Albumin normal at 3.5. - Etiology: dysphagia vs. early satiety, likely 2/2 globus sensation possibly due to cerebellar strokes. - Barium swallow ordered; shows mild esophageal dysmotility. - GI consult placed and appreciate recs: -supportive care, B12 supplementation for anemia. -can consider EGD to further evaluate in 2-3 months if still symptomatic and no clear etiology has been defined. Dysphagia: - Patient describes "food not going the whole way down". - Barium swallow ordered; GI consult placed as above. No further intervention at this time. - possibly 2/2 new posterior infarct. Could consider EGD if pt continues to have poor PO despite improvement in neurologic symptoms. Confusion: - Onset 3 days prior to admission per daughters. - Neuro exam normal. - Head CT describes concern for posterior circulation infarct. - Brain MRI with concern for subacute infarcts; CTA head and neck without vascular occlusion consistent with subacute infarcts. - Echo completed as above. - Pt is AAOx3 on discharge, to decrease risk of delirium avoid offending medications, maintain good sleep schedule, redirect if needed. COPD (chronic obstructive pulmonary disease): - Baseline O2 requirement of 2L via NC with BiPAP at night; currently at baseline saturating well. - Continue home inhalers and daily prednisone 5mg. - No concern for exacerbation at this time. Tobacco use disorder: - Unable to clarify smoking timeline, reports smoked for "a long time" but has now transitioned to mostly e-cigarette use. - Stressed strict smoking cessation, pt "will think about it". - Declines NicoDerm patch. Anemia: - Patient with known B12 deficiency with a history of macrocytic anemia. - Continue oral B12 supplements. Bilateral sacral insufficiency fracture in the setting of osteoporosis: - From mechanical fall in December. - Pain control: Tylenol and Tramadol as needed. - Given multiple fractures despite Fosamax, could consider Prolia or Forteo following discharge for osteoporosis. Diabetes mellitus, type 2: - A1c below goal at 6.4 in December 2019. - At home is on monotherapy with metformin 500mg, BID. - Metformin during admission and was on SSI with good control. - Resume Metformin on discharge. Pending Studies at Discharge: No Stand-Alone Forms: My [facility] [employer] Skilled Items Patient informed of condition?: Yes DNR: No Discharge Level of Care: Skilled Communicable Disease: No Discharge Prognosis: Improving Lines: None Urinary Catheter: No Medications and DC Order Prescriptions: New clopidogrel 75 mg Tablet 75 mg PO QAM Qty: 30 RF: 0 atorvastatin 40 mg Tablet 40 mg PO QAM Qty: 30 RF: 0 lisinopril 2.5 mg Tablet 2.5 mg PO QAM Qty: 30 RF: 0 acetaminophen [Mapap (acetaminophen)] 325 mg Tablet 650 mg PO Q4H PRN (Reason: pain) Qty: 30 RF: 0 polyethylene glycol 3350 [Miralax] 17 gram Powder In Packet 17 g PO DAILY PRN (Reason: constipation) Qty: 30 RF: 0 magnesium hydroxide [Milk of Magnesia] 400 mg/5 mL Suspension 30 ml PO Q6H PRN (Reason: constipation) Qty: 30 RF: 0 MAG-AL 200-200 mg/5 mL Suspension 30 ml PO Q6H PRN (Reason: dyspepsia) Qty: 30 RF: 0 Continued (DME) CPAP Supplies Misc See Rx Instructions .ROUTE .MEDSUPPLY Qty: 1 RF: 0 (DME) Manual Wheelchair Device See Rx Instructions .ROUTE .MEDSUPPLY Qty: 1 RF: 0 (DME) blood-glucose meter [Accu-Chek Padmini Plus Meter] Misc See Rx Instructions .ROUTE .MEDSUPPLY Qty: 1 RF: 0 (DME) blood sugar diagnostic [Accu-Chek Padmini Plus test strp] Strip See Rx Instructions .ROUTE .MEDSUPPLY Qty: 100 RF: 1 Symbicort 160-4.5 mcg/actuation HFA aerosol inhaler 2 puff INHALATION BID Qty: 10.2 RF: 2 (DME) Oxygen Home Liters Per Minute See Dose Instructions .ROUTE .MEDSUPPLY Qty: 1 RF: 0 (DME) CPAP Supplies Misc See Rx Instructions .ROUTE .MEDSUPPLY Qty: 1 RF: 0 metformin [Glucophage] 500 mg tablet 500 mg PO BID RF: 0 citalopram [Celexa] 20 mg tablet 20 mg PO QAM RF: 0 albuterol sulfate [Ventolin HFA] 90 mcg/actuation HFA aerosol inhaler 2 puff INHALATION Q4H PRN (Reason: Shortness Of Breath Or Wheezing) RF: 0 tramadol [Ultram] 50 mg tablet 25 mg PO TID PRN (Reason: Pain) RF: 0 ergocalciferol (vitamin D2) 1,250 mcg (50,000 unit) capsule 50,000 unit PO VALLE RF: 0 prednisone 5 mg tablet 5 mg PO QAM RF: 0 cyanocobalamin (vitamin B-12) 1,000 mcg capsule 1,000 mcg PO QAM RF: 0 Caltrate 600-D Plus Minerals 600 mg calcium- 800 unit-50 mg Tablet 1 tab PO BID Qty: 60 RF: 0 Discontinued aspirin [Aspir-81] 81 mg Tablet,Delayed Release (Dr/Ec) 81 mg PO HS RF: 0 ibuprofen 200 mg Tablet 200 - 400 mg PO Q6H PRN (Reason: Pain) RF: 0 No Action Spiriva Respimat 2.5 mcg/actuation mist 2 puff INHALATION QAM Qty: 1 RF: 11 Discharge Orders: Discharge Order (Routine); Ordered 02/14/20 Ordered By: Adina Fuentes Admission Data Admit Date/Time: 02/11/20 18:04 Attending Provider: Tran Coates Admit Provider: Guillermina Medina Primary Care Provider: Mary Hester Other Providers: Santino Mcbride ; Krishan Harman ; Phuc Che ; [facility] Other Interventions: Discharge Summary Assessment (RN) Last Done: 02/14/20 13:51 DC Date/Time DO NOT enter until pt leaves facility: 02/14/20 17:23 Supervising Physician Co-Signing Physician Notes I personally examined the patient and verified all gutierrez points of history and exam, discussed case, and agree with decision making with Dr. Dawson Feeling better, no chest pain or palpitations, ready for dc to rehab Vitals reviewed Cachectic, pleasant, AAO x3 RRR, no MGR Lungs diminished throughout with occasional expiratory wheeze Abdomen scaphoid, positive bowel sounds, soft nontender nondistended Extremities no edema Neuro-moves all extremities well, 5/5 strength, EOMI, no facial droop Found to have bilateral cerebellar strokes as above-management reviewed with neurology and as noted above-switch to Plavix from aspirin, started statin and lisinopril for blood pressure control. Needs long-term cardiac event monitoring after discharge and will encourage smoking cessation failure to thrive/weakness/acute on chronic severe protein calorie [id number] as above, encourage dietary supplementation, also with likely end-stage COPD contributing to weight loss periodic confusion -now resolved and was likely secondary to strokes as above pelvic fractures - nonoperative. PT/OT eval and treat. if needed can consult ortho as it relates to nonhealing status but since fx only about a month old and malnutrition would impede healing, not surprising that this has not healed. nutrition support as above DVT proph - lovenox otherwise as above Stable for dc I spent greater than 30 minutes coordinating the discharge Resident Activity Tracking Resident Involvement: Resident Care Provided Care Provided: Adult [facility]
--- NOTE | 2020-02-23 12:18 | Billing Data ---
Date of Service February 14, 2020 Coding Level of Care Code D/C Day Management >30 mins
== END 2020-02-14 17:23 ==
LOC: ED 14:12 → INTOOBSV 18:04 → 2N 18:04 → SUATTDRO 18:04 → 2N 18:42
DX: J96.12 Chronic respiratory failure with hypercapnia; F17.210 Nicotine dependence, cigarettes, uncomplicated; M84.454A Pathological fracture, pelvis, initial encounter for fracture; J96.11 Chronic respiratory failure with hypoxia; R62.7 Adult failure to thrive; Q28.2 Arteriovenous malformation of cerebral vessels; J44.9 Chronic obstructive pulmonary disease, unspecified; R41.0 Disorientation, unspecified; R53.1 Weakness; I25.10 Atherosclerotic heart disease of native coronary artery without angina pectoris; E43 Unspecified severe protein-calorie malnutrition; R13.10 Dysphagia, unspecified; I63.40 Cerebral infarction due to embolism of unspecified cerebral artery; M80.08XA Age-related osteoporosis with current pathological fracture, vertebra(e), initial encounter for fracture; E11.9 Type 2 diabetes mellitus without complications; J18.9 Pneumonia, unspecified organism; D64.9 Anemia, unspecified; R68.81 Early satiety; E55.9 Vitamin D deficiency, unspecified